=== PATIENT | male | born 1945 | race Caucasian/White ===

== ENCOUNTER 2016-07-30 21:15 | Emergency (ER) | payer MEDICARE, OTHER ==
[2014-08-21 10:51] VITALS: BMI 25.3
[~2016-07-30 21:15] MED LIST: ACETAMINOPHEN500 M1 PO; BAYER CHEWABLE81 MG PO; BYSTOLIC10 MG PO; CYMBALTA30 MG PO; GEMFIBROZIL600 MG PO; K-TAB10 MEQ PO; LASIX20 MG PO; MULTIPLE VITAMI1 TA1 PO; NEXIUM40 MG PO; PLAVIX75 MG PO; TRANDATE200 MG PO; VESICARE5 MG PO
== END 2016-07-30 22:26 | disposition home or self-care (01) ==
LOC: D.ER 21:15
DX: H18.9 Unspecified disorder of cornea (principal); Z95.1 Presence of aortocoronary bypass graft; C90.00 Multiple myeloma not having achieved remission

== ENCOUNTER 2017-04-13 15:23 | Observation (INO) | payer MEDICARE ==
[~2017-04-13] VITALS: Ht 172.7 cm; Wt 79.7 kg
--- NOTE | ~2017-04-13 | HEMODYNAMI ---
PATIENT:SANTO RODRIGUEZ MEDICAL RECORD: [id number] : 41 [address] [id number] ADMISSION DATE: 04/13/17 Generatedon:04/15/201712:51 Patient name: SANTO RODRIGUEZ Patient #: [id number] SSN: : 1945 Date of study: 04/15/2017 Page: Of Hemodynamic Procedure Report Patient Data Patient Demographics Procedure consent was obtained First Name: SANTO Gender: Male Last Name: JENNIFER : 1945 Middle Initial: DOUG Age: 71 year(s) Patient #: [id number] Race: Additional ID: [id number] Contact details Address: [address] [place] [address] State: [place] City: [place] Zip code: [address] Past Medical History Allergies Allergen Reaction Date Comments Reported Other allergy 04/15/2017 [facility] Admission Admission Data Admission Date: 04/13/2017 Admission Time: 19:01 Room #: [facility] Lab Results Lab Result Date: 04/15/2017 Lab Result Time: 0:00 Biochemistry Name Units Result Min Max BUN mg/dl 32 --(----)-* 7 18 Creatinine mg/dl 1.9 --(----)-* 0.6 1.3 CBC Name Units Result Min Max Hemoglobin g/dl 9.7 *-(----)-- 13.5 17.5 Procedure Procedure Types Cath Procedure Diagnostic Procedure LHC LHC w/Coronaries w/Grafts PCI Procedure Coronary Stent Coronary Stent Initial Miscellaneous Procedures Moderate Sedation up to 30 minutes Procedure Description Procedure Date Procedure Date: 04/15/2017 Procedure Start Time: 12:35 Procedure End Time: 12:49 Procedure Staff Name Function Carroll Miranda MD Performing Physician Nick Cordero RN Nurse Celeste Stewart RN Nurse Mora Contreras RT Scrub Destiney Nelson RT Monitor Procedure Data Cath Procedure Fluoroscopy Diagnostic fluoroscopy Total fluoroscopy Time: 3.1 time: 3.1 min min Diagnostic fluoroscopy Total fluoroscopy dose: 858 dose: 858 mGy mGy Contrast Material Contrast Material Type Amount (ml) Isovue 300 103 Entry Location Entry Primary Successful Side Size Upsize Upsize Entry Closure Succes sful Closure Location (Fr) 1 (Fr) 2 (Fr) Remarks Device Remarks Femoral Right 5 Fr 6 Fr Exoseal artery Short Estimated blood loss: 5 ml Diagnostic catheters Device Type Used For End Catheter Placement MULTIPACK Pigtail 5 Fr LV Angiography catheter MULTIPACK JL 4.0 5Fr Left Coronary catheter Angiography MULTIPACK 3DRC 5Fr Multi-vessel catheter Angiography DIAGNOSTIC AR 2 MOD 5 Fr Multi-vessel catheter ([id number]) Angiography Procedure Complications No complications Procedure Medications Medication Administration Route Dosage 0.9% NaCl I.V. 100 ml/hr Oxygen NC 2 l/min Lidocaine 2% added to field 20 Heparin Flush Bag added to field 2 bags (1000units/500ml NS) Versed I.V. 1 mg Fentanyl I.V. 50 mcg Fentanyl I.V. 50 mcg Versed I.V. 1 mg Heparin Bolus I.V. 4000 units Hemodynamics Rest HGB: 9.7 (g/dl) Heart Rate: 60 (bpm) Pressure Samples Time Site Value (mmHg) Purpose Heart Use Rate(bpm) 12:36 LV 44/42,43 Snapshot 60 Snapshots Pre Cath Intra NCS Post Cath Vital Signs Time Heart Resp SPO2 etCO2 NIBP (mmHg) Rhythm Pain Sedation Rate (ipm) (%) (mmHg) Status Level (bpm) 12:17:08 69 19 94 30.6 133/73(115) NSR 0 (11) 10(A) , No pain 12:21:26 62 17 94 32.8 126/65(106) NSR 0 (11) 10(A) , No pain 12:25:40 61 14 96 23.8 119/67(107) NSR 0 (11) 10(A) , No pain 12:29:52 60 16 94 0 126/62(105) NSR 0 (11) 10(A) , No pain 12:34:04 60 14 95 14.9 120/62(98) NSR 0 (11) 9(A) , No pain 12:38:14 61 14 93 17.8 115/66(95) NSR 0 (11) 9(A) , No pain 12:42:23 60 14 94 8.1 128/69(100) NSR 0 (11) 9(A) , No pain 12:46:40 60 14 96 0 126/61(107) NSR 0 (11) 10(A) , No pain Medications Time Medication Route Dose Verified Delivered Reason Not es Effectiveness by by 12:06:59 0.9% NaCl I.V. 100ml/hr Carroll Alonso used for Ruth Stewart RN procedure 12:07:08 Oxygen NC 2 l/min Carroll Alonso Per physician Ruth Stewart RN 12:07:16 Lidocaine 2% added 20ml Carroll Hodges for local to vial Ruth Miranda MD anesthetic field 12:07:23 Heparin Flush added 2 bags Carroll Hodges used for Bag to Ruth Miranda MD procedure (1000units/500ml field NS) 12:30:37 Versed I.V. 1 mg Carroll Alonso for sedation Ruth Stewart RN 12:30:44 Fentanyl I.V. 50 mcg Carroll Alonso for sedation Ruth Stewart RN 12:32:57 Fentanyl I.V. 50 mcg Carroll Alonso for sedation Ruth Stewart RN 12:33:03 Versed I.V. 1 mg Carroll Alonso for sedation Ruth Stewart RN 12:39:03 Heparin Bolus I.V. 4000 Carroll Alonso for units Ruth Stewart RN anticoagulation Procedure Log Time Note 12:05:33 Nick Cordero RN sent for patient. Start room use. 12:05:34 Time tracking: Regular hours 12:05:39 Plan of Care:Hemodynamics will remain stable., Cardiac rhythm will remain stable., Comfort level will be maintained., Respiratory function will remain adequate., Patient/ family verbilizes understanding of procedure., Procedure tolerated without complication., Recovers from procedure without complications.. 12:06:59 0.9% NaCl 100ml/hr I.V. was administered by Celeste Stewart RN; used for procedure; 12:07:08 Oxygen 2 l/min NC was administered by Celeste Stewart RN; Per physician; 12:07:16 Lidocaine 2% 20ml vial added to field was administered by Carroll Miranda MD; for local anesthetic; 12:07:23 Heparin Flush Bag (1000units/500ml NS) 2 bags added to field was administered by Carroll Miranda MD; used for procedure; 12::29 Lab Result : Hemoglobin 9.7 g/dl 12:: Lab Result : Creatinine 1.9 mg/dl 12:: Lab Result : BUN 32 mg/dl 12:15:53 Vital chart was started 12:20:03 Patient received from Med/Surg to CCL 2 Alert and oriented. Tansferred to table in Supine position. 12:20:04 Warm blankets applied, and ulices hugger turned on for patient comfort. 12:20:04 Correct patient and procedure confirmed by team. 12:20:06 Signed procedure consent form obtained from patient. 12:20:08 ECG and BP/O2 sat monitors applied to patient. 12:20:10 Baseline sample Acquired. 12:20:20 Full Disclosure recording started 12:20:26 Rhythm: paced 12:20:33 H&P Date Dictated: 04/15/2017 New H&P dictated by physician.. 12:20:34 Pre-procedure instructions explained to patient. 12:20:35 Pre-op teaching completed and patient verbalized understanding. 12:20:38 Family in waiting room. 12:20:40 Patient NPO since Midnight. 12:20:54 Patient allergic to Other allergyErythromycin 12:21:12 Is the patient allergic to Iodine/contrast media? No. 12:21:14 Was the patient premedicated? No 12:21:32 Is patient on blood thinner?Yes 12:21:34 ACC The patient was administered the following blood thiners within the last 24 hours: ACCPlavix 12:21:41 Patient diabetic? No. 12:21:44 Previous problem with sedation/anesthesia? No ? 12:21:45 Snore? Yes 12:21:46 Sleep apnea? Yes 12:21:47 Deviated septum? No 12:21:48 Opens mouth fully? Yes 12:21:48 Sticks out tongue? Yes 12:21:52 Airway obstruction? Yes copd 12:21:55 Dentures? No ? 12:22:00 Pre procedure: right dorsailis pedis pulse 1+ Palpable, but thready & weak; easily obliterated 12:22:02 Pre procedure: left dorsailis pedis pulse 1+ Palpable, but thready & weak; easily obliterated 12:22:05 Patient pain scale 0/10 ?. 12:22:11 IV patent on arrival in left hand with 0.9% NaCl at [facility]. 12:23:14 Lab results completed and on chart. 12:23:20 Right groin area was prepped with chlora-prep and draped in sterile fashion 12:23:21 Alarms reviewed by R. N. 12:23:25 Sharps counted by scrub and verified by R.N. 12:29:59 Physician arrived 12:30:00 --------ALL STOP TIME OUT------ 12:30:00 Final Timeout: patient, procedure, and site verified with staff and physician. All members of the team are in agreement. 12:30:02 Right groin site verified by team. 12:30:04 Physical assessment completed. ASA score P 2 - A patient with mild systemic disease as per Carroll Miranda MD. 12:30:08 Sedation plan: IV Moderate Sedation Medication:Versed, Fentanyl 12:30:36 Use device set Femoral Dx 12:30:37 Versed 1 mg I.V. was administered by Celeste Stewart RN; for sedation; 12:30:37 ACIST Syringe (85770) opened to sterile field. 12:30:38 Bag Decanter (2002S) opened to sterile field. 12:30:38 Medline Cath Pack ([id number]) opened to sterile field. 12:30:38 SHEATH 5FR [place] (FRU560) opened to sterile field. 12:30:39 DIAGNOSTIC WIRE .035 260cm J wire (735014) opened to sterile field. 12:30:41 ACIST Hand Control (17632) opened to sterile field. 12:30:42 ACIST Manifold (27580) opened to sterile field. 12:30:43 DIAGNOSTIC Multipack 5Fr catheter set (SR7708) opened to sterile field. 12:30:43 Tegaderm 4 x 4 (1626W) opened to sterile field. 12:30:44 Fentanyl 50 mcg I.V. was administered by Celeste Stewart RN; for sedation; 12:32:57 Fentanyl 50 mcg I.V. was administered by Celeste Stewart RN; for sedation; 12:33:03 Versed 1 mg I.V. was administered by Celeste Stewart RN; for sedation; 12:35:48 Procedure started. 12:35:57 Local anesthetic to right femoral artery with Lidocaine 2% by Carroll Miranda MD.INITIAL ACCESS ONLY 12:36:06 A 5 Fr sheath was inserted into the Right Femoral artery 12:36:18 A MULTIPACK Pigtail 5 Fr catheter was advanced over the wire and used for LV Angiography. 12:37:04 LV hemodynamics recorded. 12:37:08 LV gram done using ROSA 12:37:12 Injector settings: Ml/sec: 5, Volume: 15, 12:37:21 EF : 40 % 12:37:28 Catheter removed. 12:37:34 A MULTIPACK JL 4.0 5Fr catheter was advanced over the wire and used for Left Coronary Angiography. 12:38:15 LCA angiography performed. 12:38:41 Catheter removed. 12:39:03 Heparin Bolus 4000 units I.V. was administered by Celeste Stewart RN; for anticoagulation; 12:39:22 A MULTIPACK 3DRC 5Fr catheter was advanced over the wire and used for Multi-vessel Angiography. 12:40:00 LCA angiography performed. 12:40:02 WOODARD angiography performed. 12:40:07 Catheter removed. 12:40:11 A DIAGNOSTIC AR 2 MOD 5 Fr catheter ([id number]) was advanced over the wire and used for Multi-vessel Angiography. 12:40:48 SVG to RCA angiography performed. 12:40:52 Catheter removed. 12:40:52 Proceeding to intervention. 12:41:09 INFLATOR Merit BasixCompak (UD2625) opened to sterile field. 12:41:10 SHEATH 6FR [place] (KRD378) opened to sterile field. 12:41:28 WHISPER 190cm wire ([id number]) opened to sterile field. 12:41:49 GUIDE 6FR XBLAD 3.5 catheter ([id number]) opened to sterile field. 12:42:01 Sheath upsized to a 6 Fr Short. 12:42:08 6 Fr xblad 3.5 guide catheter was inserted over the wire 12:42:12 whisper wire advanced. 12:42:14 Wire advanced across lesion. 12:44:45 Inflation Number: 1 A GONZALO RX 3.0 x 12 stent ([id number]) was prepped and advanced across the Mid CX. The stent was deployed at 17 ILAN for 0:10 (min:sec). 12:44:56 Inflation number: 2 The stent balloon was then re-inflated across the Mid CX to 11 ILAN for 0:10 (min:sec). 12:45:33 Inflation number: 3 The stent balloon was then re-inflated across the Mid CX to 9 ILAN for 0:10 (min:sec). 12:46:08 Stent catheter was removed intact over wire. 12:46:09 Wire removed. 12:46:09 Guide catheter removed. 12:46:15 EXOSEAL 6Fr (EX600) opened to sterile field. 12:46:31 Sheath removed intact; hemostasis achieved with Exoseal to the Right Femoral artery. 12:46:33 Procedure ended.(Physican Out) 12:47:40 Fluoroscopy time 03.10 minutes. 12:47:43 Fluoroscopy dose: 858 mGy 12:47:43 Flurop Dose total: 858 12:47:47 Contrast amount:Isovue 300 103ml. 12:47:48 Sharps counted by scrub and verified by R.N. 12:47:49 Insertion/operative site no bleeding no hematoma. 12:47:52 Post-op/insertion site Right Femoral artery dressed using a 4 x 4 and Tegaderm. 12:47:54 Post right femoral artery:stable 12:47:55 Post Procedure Pulses reassessed and unchanged 12:47:58 Post procedure rhythm: unchanged. 12:48:01 Estimated blood loss: 5 ml 12:48:02 Post procedure instruction explained to patient.Patient verbalizes understanding. 12:48:03 Patient needs reinforcement of post procedure teaching. 12:48:27 Procedure type changed to Cath procedure, Diagnostic procedure, LHC, LHC w/Coronaries w/Grafts, PCI procedure, Coronary Stent, Coronary Stent Initial, Miscellaneous Procedures, Moderate Sedation up to 30 minutes 12:48:28 Procedure and supply charges have been captured, reviewed, submitted and are correct. 12:48:32 Procedure Complication : No complications 12:48:34 Vital chart was stopped 12:48:35 See physician's report for complete and final results. 12:49:04 Report given to [facility]. 12:49:07 Patient transfered to [facility] with Stretcher. 12:49:09 Procedure ended. 12:49:09 Full Disclosure recording stopped 12:49:18 ACC-PCI Only Patient was given prescriptions, or instructed by Nick Cordero RN to start/continue the following medications upon discharge: Plavix 12:49:20 End room use (Document Last) Intervention Summary Intervention Notes Time ActionType Lesion and Equipment Used Action# Pressure Duration Attributes 12:44:45 Place stent Mid CX GONZALO RX 3.0 x 1 17 00:10 12 stent ([id number]) 12:44:56 Reinflate Mid CX GONZALO RX 3.0 x 2 11 00:10 stent 12 stent balloon ([id number]) 12:45:33 Reinflate Mid CX GONZALO RX 3.0 x 3 9 00:10 stent 12 stent balloon ([id number]) Device Usage Item Name Manufacture Quantity Catalog Hospital Part [facility] Lot# / Number Charge Number Stock Stock Serial# Code ACIST Syringe Acist 1 93578 653189 713837 090229 20 (27119) Medical Systems Inc Bag Decanter Microtek 1 2001S 882451 16888 525589 5 () Medical Inc. Medline Cath Cardinal 1 [id number] 567159 69111 573022 5 Pack Health ([id number]) SHEATH 5FR Terumo 1 DHS881 168750 191863 675619 40 [place] (ZTF650) DIAGNOSTIC St Brice 1 712214 455164 655083 376693 30 WIRE .035 260cm J wire (790733) ACIST Hand Acist 1 91552 600311 069302 328042 5 Control Medical (65721) Systems Inc ACIST Manifold Acist 1 91075 858332 991546 379967 5 (64655) Medical Systems Inc DIAGNOSTIC Cardinal 1 NQ3555 048689 96051 919262 30 Multipack 5Fr Health catheter set (KG7467) Tegaderm 4 x 4 3M 1 1626W 265773 707206 646479 5 (1626W) MULTIPACK Cardinal 1 222755 5 Pigtail 5 Fr Health catheter MULTIPACK JL Cardinal 1 414819 5 4.0 5Fr Health catheter MULTIPACK 3DRC Cardinal 1 848785 5 5Fr catheter Health DIAGNOSTIC AR Cardinal 1 [id number] 873959 135010 272524 20 2 MOD 5 Fr Health catheter ([id number]) INFLATOR Merit Merit 1 RF8125 184361 738104 693136 [facility] (VV1234[facility] SHEATH 6FR Terumo 1 KMB023 121635 979245 959838 40 [place] (LTJ254) WHISPER 190cm Jacobo 1 [id number] 504587 435610 436110 5 wire Vascular ([id number]) GUIDE 6FR Cardinal 1 [id number] 162647 366651 653991 10 XBLAD 3.5 Health catheter ([id number]) GONZALO RX 3.0 x Medtronic 1 [id number] 717334 7351247 942025 5 [id number] 12 stent ([id number]) EXOSEAL 6Fr Cardinal 1 EX600 994000 948672 860982 10 (EX600) Health Signature Audit [place] Stage Time Signature Unsigned Intra-Procedure 04/15/2017 Destiney Nelson 12:51:35 PM RT(R) Signatures Monitor : Destiney Nelson RT Signature : Date : Time : [place] [id number] [place] [address]
[2017-04-13 16:15] LABS: BASOPHILS 0.1 % (0-2); EOSINOPHILS 1.2 % (0-7); HEMATOCRIT 27.6 % (42.0-54.0); HEMOGLOBIN 9.1 g/dL (13.5-17.5); IMMATURE GRANULOCYTES 0.1 % (0-5); LYMPHOCYTES 16.7 % (15-50); MCH 28.4 pg (26.0-34.0); MCV 86.3 fL (80.0-100.0); MEAN PLATELET VOLUME 9.8 fL (7.4-10.4); MONOCYTES 5.9 % (2-11); RDW 15.9 % (11.5-14.5); WBC 9.7 10x3/uL (4.8-10.8)
[2017-04-13 16:19] LABS: PLATELET COUNT 191 10x3/uL (130-400)
[2017-04-13 16:31] LABS: ALBUMIN 3.3 g/dL (3.4-5.0); ANION GAP 15.4 mmol/L (8-16); BILIRUBIN - TOTAL 0.49 mg/dL (0.2-1.3); CALCIUM 8.8 mg/dL (8.5-10.1); CARBON DIOXIDE 21.1 mmol/L (21.0-32.0); CREATININE - SERUM 1.9 mg/dL (0.6-1.3); POTASSIUM - SERUM 3.5 mmol/L (3.5-5.1); PROTEIN - SERUM 7.6 g/dL (6.4-8.2)
[2017-04-13 16:46] LABS: TROPONIN-I 0.021 ng/mL (0.000-0.060)
[2017-04-13 17:17] LABS: APTT 33.8 SECONDS (22.8-39.4)
[2017-04-13 17:18] LABS: INR 1.25 (0.85-1.17); PROTIME 15.2 SECONDS (11.6-15.0)
[2017-04-13 17:19] LABS: D-DIMER-QUANTITATIVE 1.02 ug/mLFEU (0.20-0.54)
[2017-04-13 19:54] LABS: CKMB 0.8 U/L (0.0-3.6); CREATINE KINASE 91 UL (21-232); TROPONIN-I 0.023 ng/mL (0.000-0.060)
[2017-04-14] VITALS (7 sets, daily range): BP systolic 134–150; BP diastolic 57–68; Ht 172.7 cm; Wt 79.7 kg
[2017-04-14] MEDS ORDERED: NORVASC10 MG PO (00:30)
[2017-04-14] MEDS ORDERED: ZYLOPRIM300 MG PO (00:31)
[2017-04-14 02:06] LABS: CREATINE KINASE 88 UL (21-232)
[2017-04-14 08:44] LABS: BASOPHILS 0.1 % (0-2); EOSINOPHILS 1.6 % (0-7); HEMATOCRIT 28.6 % (42.0-54.0); HEMOGLOBIN 9.3 g/dL (13.5-17.5); IMMATURE GRANULOCYTES 0.3 % (0-5); LYMPHOCYTES 17.9 % (15-50); MCH 28.7 pg (26.0-34.0); MCHC 32.5 g/dL (31.0-37.0); MEAN PLATELET VOLUME 9.7 fL (7.4-10.4); NEUTROPHILS 72.1 % (40-80); PLATELET COUNT 182 10x3/uL (130-400); RBC 3.24 10x6/uL (4.20-6.10); RDW 15.9 % (11.5-14.5); WBC 7.4 10x3/uL (4.8-10.8)
[2017-04-14 08:45] LABS: MCV 88.3 fL (80.0-100.0)
[2017-04-14 09:10] LABS: CALC OSMOLALITY 291 mosm/kg (275-300); CALCIUM 8.6 mg/dL (8.5-10.1); CARBON DIOXIDE 25.4 mmol/L (21.0-32.0); CHLORIDE - SERUM 107 mmol/L (98-107); CKMB 1.2 U/L (0.0-3.6); CREATINE KINASE 82 UL (21-232); GLUCOSE 95 mg/dL (74-106); POTASSIUM - SERUM 3.3 mmol/L (3.5-5.1); SODIUM 143 mmol/L (136-145); UREA NITROGEN 31 mg/dL (7-18); eGFR NON AFRICAN AMERICAN 35 mL/min (90-120)
[2017-04-14 09:13] LABS: TROPONIN-I 0.135 ng/mL (0.000-0.060)
--- NOTE | 2017-04-14 09:49 | NUR ---
AWAKE AND ALERT. ORIENTED X3. NO C/O AT THIS TIME. LUNGS ARE CLEAR BILATERALLY BUT DIMINISHED THROUGHOUT. REPORTS OCCASSIONAL DRY COUGH. SKIN IS INTACT WIHTOUT REDNESS. IV TO LEFT FOREARM IS PATENT WITHOUT REDNESS AT INSERTION SITE. DENIES NEEEDS. ATE MOST OF BREAKFAST.
--- NOTE | 2017-04-14 10:00 | NUR ---
DR PERAZA HERE. AWARE OF ELEVATED CE. NEW ORDERS RECEIVED.
--- NOTE | 2017-04-14 12:15 | CN ---
PATIENT NAME:SANTO RODRIGUEZ MEDICAL RECORD: [id number] : 41 LOCATION:D.MS Lance2239 ADMIT DATE: 04/13/17 ACCOUNT: [id number] CONSULTING PHYSICIAN: TAVON PERAZA MD REFERRING PHYSICIAN: JERZY FIELD MD DATE OF CONSULTATION: 04/14/2017 CARDIOLOGY CONSULT DIAGNOSES: 1. Shortness of breath. 2. Non-Q-wave myocardial infarction and elevated troponin. 3. Coronary artery disease. 4. Previous PTCA and stent. 5. Possible pneumonia. HISTORY: This is a gentleman who presents with shortness of breath and chest pain. His troponin is positive. He has renal insufficiency with creatinine of 2.0. He is anemic with hemoglobin of 9.1. He has a history of coronary artery disease, previous PTCA and stent as well. He has a history of hypertension and hyperlipidemia. These are under good control on his current medications. REVIEW OF SYSTEMS: The patient reports easy bruising but reports no swollen glands. The patient reports no fever, no night sweats, no significant weight gain, no significant weight loss. No significant exercise tolerance. The patient reports no dry eyes, no irritation, no vision change. Patient reports no difficulty hearing and no ear pain. Patient reports no frequent nose bleeds or nose and sinus problems. Patient reports on arm pain on exertion. No shortness of breath while lying down. No history of heart murmur. Patient reports no cough, no wheezing or coughing up blood. Patient reports no abdominal pain, no vomiting. Normal appetite. No diarrhea and not vomiting blood. No nausea and no constipation. Patient reports no incontinence. No difficulty urinating. No hematuria. No increased frequency. Patient reports no muscle aches. No weakness, no arthralgias, no back pain. No swelling of the extremities. Patient reports no abnormal mole, no jaundice, no rashes. Reports no loss of consciousness. No weakness and no numbness. No seizures, dizziness, or headaches. The patient reports no depression, no sleep disturbance, feeling safe in a relationship and no alcohol abuse. Patient reports on fatigue. Reports no runny nose or sinus pressure. No itching, no hives, and no frequent sneezing. PHYSICAL EXAMINATION: GENERAL APPEARANCE: Well-nourished, well-developed, appears stated age. Level of distress, comfortable. PSYCHIATRIC: Mental status, alert, normal affect. Orientation, oriented to time, place and person. EYES: Lids and conjunctiva, noninjected. No discharge, no pallor. ENT: Lips, teeth, gums, normal dentition. Oropharynx, no cyanosis, no pallor. NECK: Carotid arteries, bilateral normal upstroke, no bruits, no thrills. JUGULAR VEINS: No jugular venous pressure or distention. CERVICAL LYMPH NODES: Nontender, nonenlarged. THYROID: Not enlarged. Nontender. No nodules. LUNGS: Respiratory effort, unlabored. CHEST: Normal curvature. No thoracic deformity. No chest wall tenderness. Percussion, resonant. Auscultation, clear. No wheezes, no rales, no rhonchi. CONSULT REPORT [id number] SANTO RODRIGUEZ CARDIOVASCULAR: Precordial exam, nondisplaced. No heaves or pericardial thrills. Rate and rhythm, regular. Heart sounds, normal S1, normal S2. No S3, no gallop, no rub. Systolic murmur, not heard. Diastolic murmur, not heard. EXTREMITIES: No cyanosis, no edema. Peripheral pulses, full and equal in all extremities, except as noted. No bruits appreciated. ABDOMEN: Soft, nondistended. Normal aorta. No bruit. Nontender. No masses. Liver, nontender, no hepatomegaly. Spleen, nontender, no splenomegaly. MUSCULOSKELETAL: No joint tenderness. No joint swelling. No erythema. NEUROLOGICAL: Normal gait, normal strength, normal tone. SKIN: Warm and dry. OVERALL IMPRESSION: Non-Q-wave myocardial infarction with chest pain and shortness of breath, most likely he has recurrent hemodynamically significant coronary artery disease. We will proceed with coronary angiography in the a.m. Further care depends upon findings of the angiography. TRANSINT:[id number] Voice Confirmation ID: [id number] DOCUMENT ID: [id number] TAVON PERAZA MD at 1215 CC: [id number] DICTATION DATE: 04/14/17 1026 EXECUTIVE CHEF: 04/14/17 1059 ADM IN [place] [address] [place] [address]
--- NOTE | 2017-04-14 12:30 | NUR ---
LUNCH SERVED IN ROOM. SISTER AT BEDSIDE. DENIES NEEDS.
--- NOTE | 2017-04-14 18:26 | NUR ---
ATE ALMOST ALL OF SUPPER. DENIES NEEDS. NO CHANGES NOTED.
--- NOTE | 2017-04-15 03:59 | NUR ---
RESITED THE PATIENT'S IV IN HIS LEFT FA ON THE FIRST ATTEMPT WITH A 22G
[2017-04-15 04:24] VITALS: BP 132/64
[2017-04-15 06:16] LABS: BASOPHILS 0.1 % (0-2); EOSINOPHILS 3.8 % (0-7); HEMATOCRIT 29.3 % (42.0-54.0); HEMOGLOBIN 9.7 g/dL (13.5-17.5); IMMATURE GRANULOCYTES 0.1 % (0-5); LYMPHOCYTES 12.9 % (15-50); MCH 28.7 pg (26.0-34.0); MCHC 33.1 g/dL (31.0-37.0); MCV 86.7 fL (80.0-100.0); MEAN PLATELET VOLUME 9.8 fL (7.4-10.4); MONOCYTES 6.6 % (2-11); NEUTROPHILS 76.5 % (40-80); PLATELET COUNT 202 10x3/uL (130-400); RBC 3.38 10x6/uL (4.20-6.10); RDW 15.8 % (11.5-14.5); WBC 8.5 10x3/uL (4.8-10.8)
[2017-04-15 06:38] LABS: ALBUMIN 3.1 g/dL (3.4-5.0); BILIRUBIN - TOTAL 0.42 mg/dL (0.2-1.3); CARBON DIOXIDE 26.1 mmol/L (21.0-32.0); CREATININE - SERUM 1.9 mg/dL (0.6-1.3); PROTEIN - SERUM 6.9 g/dL (6.4-8.2)
[2017-04-15 06:39] LABS: ANION GAP 15.9 mmol/L (8-16)
--- NOTE | 2017-04-15 08:00 | NUR ---
ASSESSMENT PER FLOW SHEET.PT WITHOUT DISTRESS.NPO FOR HEART CATH TODAY.
[2017-04-15 08:20] VITALS: BP 141/69
--- NOTE | 2017-04-15 12:06 | NUR ---
LEFT UNIT TO GO TO STEAM BONE PRESS TENDER
--- NOTE | 2017-04-15 12:07 | NUR ---
REPORT CALLED TO MED 2,SPOKE WITH ALEXANDRA
--- NOTE | 2017-04-15 13:20 | NUR ---
RECEIVED FROM SHOWCASE MAKER BY BED. VS WNL. RIGHT GROIN STABLE WITHOUT BLEEDING OR HEMATOMA NOTED. WILL MONITOR.
--- NOTE | 2017-04-15 16:09 | NUR ---
ANNE REMOVED FROM RIGHT ARM. SM AMNT PURULENT DRAINGE NOTED. COVERED WITH NON ADHESIVE DRSG. WILL MONITOR.
[2017-04-15 16:37] VITALS: BP 134/64
--- NOTE | 2017-04-15 17:00 | NUR ---
BED REST UP. GROIN STABLE.
--- NOTE | 2017-04-15 20:48 | NUR ---
PT RESTING COMFORTABLY, EASILY ROUSABLE TO VERBAL STIMULI, NO NEED AT THIS TIME. PT CURRENTLY RECEIVING AND UPDRAFT TX FROM RT. RT GROIN CLEAN, DRY, DRESSING INTACT, NO HEMATOMA, WARM TO TOUCH, PEDAL PULSES WNL. CONTINUE TO MONITOR CLOSELY.
[2017-04-15 21:03] VITALS: BP 141/63
[2017-04-16 04:46] LABS: BASOPHILS 0.2 % (0-2); EOSINOPHILS 3.8 % (0-7); HEMATOCRIT 30.2 % (42.0-54.0); HEMOGLOBIN 9.9 g/dL (13.5-17.5); IMMATURE GRANULOCYTES 0.3 % (0-5); LYMPHOCYTES 18.7 % (15-50); MCH 28.3 pg (26.0-34.0); MCHC 32.8 g/dL (31.0-37.0); MCV 86.3 fL (80.0-100.0); MEAN PLATELET VOLUME 9.8 fL (7.4-10.4); MONOCYTES 7.8 % (2-11); NEUTROPHILS 69.2 % (40-80); PLATELET COUNT 239 10x3/uL (130-400); RDW 15.8 % (11.5-14.5); WBC 10.6 10x3/uL (4.8-10.8)
--- NOTE | 2017-04-16 05:05 | NUR ---
PT AWAKE, ALERT, ORIENTED, COFFEE GIVEN PER REQUEST. PT STATES HE HAS AMBULATED TO THE BATHROOM WITHOUT DIFFICULTY, RT GROIN REMAINS WNL AFTER CARDIAC CATH YESTERDAY. CONTINUE TO MONITOR CLOSELY.
[2017-04-16 05:10] LABS: ALBUMIN 3.1 g/dL (3.4-5.0); ANION GAP 13.8 mmol/L (8-16); BILIRUBIN - TOTAL 0.34 mg/dL (0.2-1.3); CALCIUM 8.9 mg/dL (8.5-10.1); CARBON DIOXIDE 27.3 mmol/L (21.0-32.0); CREATININE - SERUM 1.9 mg/dL (0.6-1.3); POTASSIUM - SERUM 3.1 mmol/L (3.5-5.1); PROTEIN - SERUM 7.5 g/dL (6.4-8.2)
[2017-04-16 05:40] VITALS: BP 137/59
[2017-04-16 08:34] VITALS: BP 143/72
--- NOTE | 2017-04-16 12:18 | NUR ---
STAPLE REMOVED FROM RT FA. PT TOLERATED PROCEDURE WELL. CLEANED SITE WITH BETADINE AND APPLIED DRESSING TO SITE. PT STATED THAT HE WAS SITTING UP TO CHAIR, AND HE DROPPED HIS PHONE AND WHEN HE WENT TO PICK IT UP HE GOT DIZZY, ALSO STATED THAT HE GOT A LITTLE DISORIENTED TO WHERE HE WAS AT. PT SEEMS FINE AT THIS TIME. RESP EVEN AND UNLABORED, NAD NOTED, CALL LIGHT IN REACH, WILL CONTINUE TO MONITOR.
[2017-04-16 12:25] VITALS: BP 133/57
--- NOTE | 2017-04-16 14:03 | NUR ---
Nutrition Follow Up: Pt stated that he does not have an appetite. He said that he does not feel hungry and he does feel some nausea. Pt is eating 50% meal avg on an AHA diet. No BM since admit. Wt loss noted. Labs reviewed. Meds noted including Lasix. Rec consider changing diet to regular to encourage po intake. Will continue to honor food preferences within diet ordered. RD following.
[2017-04-16] MEDS ORDERED: PLAVIX75 MG PO ×3 (15:07→15:28)
[2017-04-16] MEDS ORDERED: TESSALON PERLE100 MG PO ×3 (15:08→15:28)
[2017-04-16] MEDS ORDERED: ASPIRIN81 MG PO ×3 (15:08→15:28)
[2017-04-16] MEDS ORDERED: VIBRAMYCIN 100100 MG PO ×3 (15:09→15:28)
[2017-04-16] MEDS ORDERED: MUCINEX DM ER1 EAC1 PO ×3 (15:09→15:28)
--- NOTE | 2017-04-16 15:47 | NUR ---
CALLED ER REGISTRATION AND INFOMRED THEM THAT PT HAS MONEY IN THE SAFE AND WANTS IT BROUGHT UP. ER REGSTRATION WILL BE UP SHORLY.
[2017-04-16 16:35] VITALS: BP 132/63
--- NOTE | 2017-04-16 17:35 | NUR ---
PROVIDED VERBAL AND WRITTEN DICHARGE TEACHING TO PT AND . BOTH VERBALIZED UNDERSTANDING, D/C LT FA IV, TIP INTACT. PT LEFT UNIT VIA WHEELCHAIR, ACCOMPANIED BY , NAD NOTED.
--- NOTE | 2017-04-29 15:46 | OP ---
PATIENT NAME: SANTO RODRIGUEZ MEDICAL RECORD: [id number] :41 LOCATION:D.M2 D.2132 ADMISSION DATE:04/13/17 SURGEON: TAVON PERAZA MD DATE OF OPERATION: 04/15/2017 PROCEDURES: 1. PTCA and stent of left circumflex. 2. Left heart catheterization. 3. Selective coronary angiography. 4. Left ventriculogram. 5. Vein graft angiography. 6. WOODARD angiography. INDICATION: Unstable angina. DESCRIPTION OF PROCEDURE: After informed consent was obtained and after detailed explanation of risks, benefits as well as alternative therapies, the patient elected to proceed with angiogram and angioplasty. The right femoral area was prepped and draped in normal sterile fashion. The right femoral artery was cannulated via modified Seldinger technique with placement of 6-Romanian sheath. All catheters exchanged through this sheath. FINDINGS: Left ventriculogram was performed in the standard 30-degree ROSA view, reveals mild global hypokinesis, ejection fraction 40%. SELECTIVE CORONARY ANGIOGRAPHY: 1. Left main showed no significant angiographic disease. 2. Left anterior descending is totally occluded. 3. WOODARD to the LAD is widely patent. Distal LAD is widely patent. 4. Left circumflex has a previously placed stent. There is 80% in-stent restenosis. 5. Right coronary is totally occluded. 6. Vein graft to the right coronary is widely patent. Distal right coronary is widely patent. PTCA AND STENT OF THE LEFT CIRCUMFLEX: The stent used was a 3.0 x 12 mm [place]. Result was 0% residual stenosis. OVERALL IMPRESSION: Successful PTCA and stent of the left circumflex going from 80% initial stenosis to 0% residual. TRANSINT:[id number] Voice Confirmation ID: [id number] DOCUMENT ID: [id number] TAVON PERAZA MD at 1546 CC: [id number] DICTATION DATE: 04/15/17 1252 PARENT COACH: 04/15/17 1540 DIS IN 04/16/17 [place] [id number]
--- NOTE | 2017-04-30 14:06 | CN ---
PATIENT NAME:SANTO LIRIANO MEDICAL RECORD: [id number] : 41 LOCATION:D. D.2132 ADMIT DATE: 04/13/17 ACCOUNT: [id number] CONSULTING PHYSICIAN: JOELLE ORDONEZ MD REFERRING PHYSICIAN: JERZY FIELD MD DATE OF CONSULTATION: 04/14/2017 Pulmonary Consultation CONSULT REQUESTING PHYSICIAN: Jerzy Field MD REASON FOR CONSULTATION: Fever, shortness of breath, cough. HISTORY OF PRESENT ILLNESS: Mr. Liriano is a 71-year-old gentleman who has a history of obstructive sleep apnea, coronary artery disease status post CABG as well as COPD. According to the patient, for the last few days, he has worsening shortness of breath with exertion. He has some mild fever. He has cough, which is nonproductive. He also has pain across the chest. There is no associated nausea, vomiting, no diarrhea. PAST MEDICAL HISTORY: 1. Coronary artery disease. 2. Obstructive sleep apnea. 3. Chronic obstructive pulmonary disease. 4. Pneumonia. 5. Multiple myeloma. 6. CA of the prostate. 7. CA of the kidney. 8. History of diverticulitis. 9. History of rectal bleed. 10. He is also having anxiety and depression. PAST SURGICAL HISTORY: 1. CABG. 2. Back surgery. 3. Right knee meniscus injury. 4. Right nephrectomy. ALLERGIES: HE IS ALLERGIC TO ERYTHROMYCIN. PRESENT MEDICATIONS: On [employer], was reviewed. PERSONAL AND SOCIAL HISTORY: The patient is a nonsmoker, nondrinker. FAMILY HISTORY: Significant for cardiovascular disease. PHYSICAL EXAMINATION: GENERAL: Now, the patient is lying comfortably. He is not in acute distress. VITAL SIGNS: The blood pressure 139/61, pulse is 59, respiration is 19, temperature 97.9, SpO2 is 96% on 5 liters nasal cannula. HEENT: Conjunctivae pink. Sclerae nonicteric. NECK: Supple, no JVD. CHEST: Bilateral crackles, wheeze on forceful expiration. HEART: Rhythm regular, normal sound, no murmur. ABDOMEN: Soft. Bowel sounds present. No hepatosplenomegaly. CONSULT REPORT [id number] SANTO LIRIANO RECTAL: Deferred. EXTREMITIES: No cyanosis, no clubbing, no pedal edema. SKIN: Warm, normal turgor. CENTRAL NERVOUS SYSTEM: The patient is awake and alert. There are no obvious cranial nerve abnormalities. The gait was not tested. DIAGNOSTIC STUDIES: VQ scan of low probability. Chest x-ray, there is a bit increased interstitial marking. OTHER LABORATORY DATA: CBC: WBC is 7.4, hemoglobin 9.3, hematocrit 39.6, and platelet count 129. Chemistry: Sodium 143, potassium 3.3, BUN is 31, creatinine is 2. Troponin is 0.135. IMPRESSION: 1. Acute hypoxic respiratory failure. 2. Pulmonary edema. 3. Congestive heart failure with elevated proBNP, possible systolic dysfunction. 4. Acute exacerbation of chronic obstructive pulmonary disease. 5. Tracheobronchitis. 6. Obstructive sleep apnea. 7. Coronary artery disease. RECOMMENDATION: 1. Continue albuterol/ipratropium nebulizers. Start methylprednisolone IV. Start doxycycline IV, Brovana and budesonide nebulizer. 2. Antitussive 3. The patient is going for cardiac catheterization in the morning. Dr. Field, thank you for involving me in the care of Mr. Liriano. TRANSINT:[id number] Voice Confirmation ID: [id number] DOCUMENT ID: [id number] JOELLE ORDONEZ MD at 1406 CC: JERZY FIELD MD [id number] DICTATION DATE: 04/14/17 153 TONG SETTER: 04/14/171925 DIS IN 04/16/17 [id number] [place] [address]
== END 2017-04-16 18:05 | disposition home or self-care (01) ==
LOC: D.ER 15:23 → D.MS 19:01 → OBSVTIME 19:01 → D.M2 19:01
PROVIDERS: Family Medicine; ADMIT Family Medicine
DX: I21.4 Non-ST elevation (NSTEMI) myocardial infarction (principal); I25.10 Atherosclerotic heart disease of native coronary artery without angina pectoris; I25.82 Chronic total occlusion of coronary artery; Z95.5 Presence of coronary angioplasty implant and graft; J44.1 Chronic obstructive pulmonary disease with (acute) exacerbation; T82.855A Stenosis of coronary artery stent, initial encounter; Y83.8 Other surgical procedures as the cause of abnormal reaction of the patient, or of later complication, without mention of misadventure at the time of the procedure; Z95.0 Presence of cardiac pacemaker; J96.01 Acute respiratory failure with hypoxia; Z85.79 Personal history of other malignant neoplasms of lymphoid, hematopoietic and related tissues; Z85.46 Personal history of malignant neoplasm of prostate; Z85.528 Personal history of other malignant neoplasm of kidney; I50.21 Acute systolic (congestive) heart failure; D64.9 Anemia, unspecified; G47.33 Obstructive sleep apnea (adult) (pediatric)
CPT/HCPCS: 93459; C9600

== ENCOUNTER 2017-05-13 19:41 | Observation (INO) | payer MEDICARE ==
[~2017-05-13] VITALS: Ht 172.7 cm; Wt 76.5 kg
--- NOTE | ~2017-05-13 | DS ---
PATIENT:SANTO RODRIGUEZ :41 MEDICAL RECORD: [id number] DISCHARGE SUMMARY ADMISSION DATE: 05/13/17 DISCHARGE DATE: 05/15/17 DATE OF DISCHARGE: 05/15/2017 DIAGNOSES: 1. Congestive heart failure, chronic systolic dysfunction. 2. Coronary artery disease. 3. Pulmonary edema, fluid overload. 4. Hypertension. 5. Hyperlipidemia. HOSPITAL COURSE: Mr. Rodriguez has a known cardiomyopathy. He presented with congestive heart failure symptomatology. Underwent diuresis. Heart failure symptomatology cleared. Discharged home with the addition of Lasix 20 mg a day to his medical regimen. He will follow up with [facility] as previously scheduled in 1 month. TRANSINT:[id number] Voice Confirmation ID: [id number] DOCUMENT ID: [id number] TAVON PERAZA MD at 1324 CC: [id number] DICTATION DATE: 05/15/17 1324 TEACHER VISUALLY IMPAIRED: 05/16/17 0111 DIS IN 05/15/17 [address] [place] [address]
--- NOTE | ~2017-05-13 | EC ---
PATIENT:SANTO RODRIGUEZ DATE OF SERVICE: 05/13/17 SEX: M MEDICAL RECORD: [id number] DATE OF : 41 LOCATION:D.M2 D.210 AGE OF PATIENT: 72 ADMISSION DATE: 05/13/17 REFERRING PHYSICIAN: INTERPRETING PHYSICIAN: TAVON MIRANDA MD ECHOCARDIOGRAM REPORT ECHO CHARGES 4 ECHO COMPLETE CLINICAL DIAGNOSIS: CHF/MURMUR/CAD HX OF CAD/CABG/STENT/PACER ECHOCARDIOGRAPHIC MEASUREMENTS (adult normal given) AC root (d.<3.7cm) 4.3 cm LV Septum d (<1.2 cm> 1.4 cm Valve Excursion 1.5 cm LV Septum (systole) 1.6 cm Left Atria (s.<4.0cm> 4.4 cm LVPW d(<1.2cm) 1.6 cm RV (d.<2.3cm) 4.1 cm LVPW (sytole) 1.8 cm LV diastole(<5.6CM) 6.6 cm MV E-F(>70mm/sec) cm LV systole 5.4 cm LVOT Diameter 1.6 cm MV exc.(>10mm) 1.0 cm Est.ejection fraction (50-75%) % Pericardial Effusion N DOPPLER: LVIT cm/sec A 82.0 cm/sec E 100 cm/sec LA cm/sec RVSP 46 mmHg LVOT 147 cm/sec AOP1/2T 605 m/s Asc. Ao 268 cm/sec RVOT 87 cm/sec RA cm/sec PA 121 cm/sec AV Gradient Peak 28.76mmHg AV Mean 16.07mmHg AV Area 1.4 cm MV Gradient Peak 6.02 mmHg MV Mean 2.50 mmHg MV Area cm COMMENTS: Health Information Director: Matt LAM Process Line Operator: 1 Dr. Miranda TAPE# PACS DATE OF SERVICE: 05/14/2017 FINDINGS: 1. Left ventricular chamber size is dilated. Left ventricular systolic function is mildly reduced, overall ejection fraction of 35% to 40%. 2. Left atrium is enlarged at 4.2 cm. Right atrium and right ventricular chamber sizes are as well mildly dilated. 3. Valvular structures: Aortic valve demonstrates mild calcific aortic stenosis. Valve area calculates to 1.4 cm-squared with a gradient of 28 mm across the valve. The remaining valvular structures have normal structure and ECHOCARDIOGRAM REPORT [id number] SANTO RODRIGUEZ motion. 4. Doppler interrogation elsewise reveals mild aortic insufficiency, severe mitral regurgitation, moderate tricuspid regurgitation, no other valvular insufficiency or stenosis. 5. No evidence of pericardial effusion or left ventricular thrombus. TRANSINT:[id number] Voice Confirmation ID: [id number] DOCUMENT ID: [id number] TAVON MIRANDA MD at 1323 CC: [id number] DICTATION DATE: 05/14/17 1117 RESEARCH STUDY ASSISTANT: 05/14/17 1311 DIS IN 05/15/17 [facility] [address] [place] [address]
[~2017-05-13 19:41] MED LIST changes: +ASPIRIN81 MG PO; +MUCINEX DM ER1 EAC1 PO; +NORVASC10 MG PO; +TESSALON PERLE100 MG PO; +VIBRAMYCIN 100100 MG PO; +ZYLOPRIM300 MG PO
[2017-05-13 21:12] LABS: BASOPHILS 0.1 % (0-2); EOSINOPHILS 2.4 % (0-7); HEMATOCRIT 31.5 % (42.0-54.0); HEMOGLOBIN 10.3 g/dL (13.5-17.5); IMMATURE GRANULOCYTES 0.2 % (0-5); LYMPHOCYTES 13.3 % (15-50); MCH 28.9 pg (26.0-34.0); MCHC 32.7 g/dL (31.0-37.0); MCV 88.2 fL (80.0-100.0); MEAN PLATELET VOLUME 10.1 fL (7.4-10.4); MONOCYTES 4.3 % (2-11); NEUTROPHILS 79.7 % (40-80); RBC 3.57 10x6/uL (4.20-6.10); RDW 16.4 % (11.5-14.5); WBC 11.6 10x3/uL (4.8-10.8)
[2017-05-13 21:27] LABS: ALBUMIN 3.6 g/dL (3.4-5.0); ALKALINE PHOSPHATASE 131 U/L (46-116); ALT (SGPT) 16 U/L (10-68); BILIRUBIN - TOTAL 0.37 mg/dL (0.2-1.3); CALC OSMOLALITY 285 mosm/kg (275-300); CALCIUM 9.4 mg/dL (8.5-10.1); CARBON DIOXIDE 23.6 mmol/L (21.0-32.0); CHLORIDE - SERUM 105 mmol/L (98-107); CREATININE - SERUM 1.9 mg/dL (0.6-1.3); GLUCOSE 118 mg/dL (74-106); POTASSIUM - SERUM 3.5 mmol/L (3.5-5.1); PROTEIN - SERUM 7.6 g/dL (6.4-8.2); SODIUM 140 mmol/L (136-145); UREA NITROGEN 28 mg/dL (7-18); eGFR NON AFRICAN AMERICAN 37 mL/min (90-120)
[2017-05-13 21:38] LABS: CHOLESTEROL, TOTAL 238 mg/dL (0-200); CKMB 0.8 U/L (0.0-3.6); CREATINE KINASE 57 UL (21-232); HDL CHOLESTEROL 34 mg/dL (32-96); LDL CHOLESTEROL 175 mg/dL (0-100); LDL-HDL RATIO 5.1 ratio (1.5-3.5); TRIGLYCERIDE 146 mg/dL (30-200)
[2017-05-13 21:42] LABS: TROPONIN-I < 0.017 ng/mL (0.000-0.060)
[2017-05-13 21:43] LABS: PLATELET COUNT 178 10x3/uL (130-400)
[2017-05-13] MEDS ORDERED: SYNTHROID50 MCG PO (23:47)
[2017-05-14] VITALS: BP 152/65
[2017-05-14 02:54] VITALS: BP 152/65; BMI 27.1
[2017-05-14 04:00] VITALS: BP 133/63
[2017-05-14 06:16] LABS: CKMB 0.8 U/L (0.0-3.6); CREATINE KINASE 52 UL (21-232)
[2017-05-14 08:32] VITALS: BP 143/57
[2017-05-14 11:44] LABS: CKMB 0.8 U/L (0.0-3.6); CREATINE KINASE 49 UL (21-232)
[2017-05-14 11:58] LABS: TROPONIN-I 0.125 ng/mL (0.000-0.060)
[2017-05-14 12:50] VITALS: Ht 172.7 cm; Wt 76.5 kg
[2017-05-14 21:52] VITALS: BP 147/67
[2017-05-15 06:17] VITALS: BP 149/65
[2017-05-15 08:49] VITALS: BP 129/72
[2017-05-15 12:29] VITALS: BP 143/77
== END 2017-05-15 15:17 | disposition home or self-care (01) ==
LOC: D.ER 19:41 → D.M2 21:17 → OBSVTIME 21:17 → D.M2 05-15 15:17
PROVIDERS: Emergency Medicine
DX: I11.0 Hypertensive heart disease with heart failure (principal); I50.23 Acute on chronic systolic (congestive) heart failure; E78.5 Hyperlipidemia, unspecified; I25.10 Atherosclerotic heart disease of native coronary artery without angina pectoris; Z95.5 Presence of coronary angioplasty implant and graft; Z95.1 Presence of aortocoronary bypass graft; Z95.0 Presence of cardiac pacemaker; J44.9 Chronic obstructive pulmonary disease, unspecified; I42.9 Cardiomyopathy, unspecified

== ENCOUNTER 2017-09-08 00:28 | Inpatient (IN) | payer MEDICARE ==
[~2017-09-08] VITALS: Ht 172.7 cm; Wt 73.3 kg
--- NOTE | ~2017-09-08 | HEMODYNAMI ---
PATIENT:SANTO RODRIGUEZ MEDICAL RECORD: [id number] : 41 [facility] D.[id number] ADMISSION DATE: 09/08/17 Generatedon:09/14/201714:02 Patient name: SANTO RODRIGUEZ Patient #: [id number] SSN: : 1945 Date of study: 09/14/2017 Page: Of Hemodynamic Procedure Report Patient Data Patient Demographics Procedure consent was obtained First Name: SANTO Gender: Male Last Name: JENNIFER : 1945 [facility] Initial: DOUG Age: 72 year(s) Patient #: [id number] Race: Additional ID: [id number] Contact details [address]: [address] [place] [address] State: [place] City: [place] Zip code: [address] Past Medical History Allergies Allergen Reaction Date Comments Reported Other allergy 04/15/2017 Erythromycin Other allergy 09/14/2017 Erythromycin base Admission Admission Data Admission Date: 09/08/2017 Admission Time: 2:31 Room #: D.2134 Lab Results Lab Result Date: 09/14/2017 Lab Result Time: 5:30 Biochemistry Name Units Result Min Max BUN mg/dl 35 --(----)-* 7 18 Creatinine mg/dl 1.8 --(----)-* 0.6 1.3 CBC Name Units Result Min Max Hematocrit % 31.5 *-(----)-- 42 54 Hemoglobin g/dl 10 *-(----)-- 13.5 17.5 Procedure Procedure Types Cath Procedure Diagnostic Procedure LHC LHC w/Coronaries w/Grafts BRONSON Procedure Description Procedure Date Procedure Date: 09/14/2017 Procedure Start Time: 13:39 Procedure End Time: 13:59 Procedure Staff Name Function Duy Lombardo MD Performing Physician Janice Herrera Roof Service Technician Chyna Montejo RT Monitor Dirk Cabral RT Scrub Kenan Sloan RN Nurse Shad Avila MD Additional personnel Procedure Data Cath Procedure Fluoroscopy Diagnostic fluoroscopy Total fluoroscopy Time: 4.1 time: 4.1 min min Diagnostic fluoroscopy Total fluoroscopy dose: 504 dose: 504 mGy mGy Contrast Material Contrast Material Type Amount (ml) Isovue 370 74 Entry Location Entry Primary Successful Side Size Upsize Upsize Entry Closure Succes sful Closure Location (Fr) 1 (Fr) 2 (Fr) Remarks Device Remarks Femoral Right 5 Fr Exoseal artery Estimated blood loss: 5 ml Diagnostic catheters Device Type Used For End Catheter Placement MULTIPACK JL 4.0 5Fr Procedure catheter DIAGNOSTIC IM 5Fr Procedure catheter ([id number]) DIAGNOSTIC AR MOD 5Fr Procedure Catheter ([id number]) MULTIPACK Pigtail 5 Fr Procedure catheter Procedure Complications No complications Procedure Medications Medication Administration Route Dosage 0.9% NaCl I.V. 100 ml/hr Oxygen etCO2 Nasal cannula 2 l/min Heparin Flush Bag added to field 2 bags (1000units/500ml NS) Lidocaine 2% added to field 20 Benadryl I.V. 50 mg Refer to Anesthesia Notes for Sedation Medications unlisted medication P.O. 20 ml Hemodynamics Rest HGB: 10 (g/dl) Heart Rate: 60 (bpm) Pressure Samples Time Site Value (mmHg) Purpose Heart Use Rate(bpm) 13:53 LV 170/8,13 Snapshot 60 13:54 LV 134/37,62 Snapshot 60 13:54 AO 163/65(100) Pullback 60 13:54 LV 165/5,13 Pullback 60 Gradients Valve Time Site 1 Site 2 Mean SEP/DFP Peak To Heart Use (mmHg) (sec/min) Peak Rate (mmHg) (bpm) Aortic 13:54 LV AO 8 11 2 60 165/5,13 163/65(100) Calculations Valve P-P Mean Valve Index Valve Source Name Gradient Area Flow (cm2) Aortic 2 8 2 8 Snapshots Pre Cath Intra NCS Post Cath Vital Signs Time Heart Resp SPO2 etCO2 NIBP (mmHg) Rhythm Pain Sedation Rate (ipm) (%) (mmHg) Status Level (bpm) 12:58:13 60 17 100 32.9 159/75(130) Paced 0 (11) 10(A) , No pain 13:02:55 63 19 100 27 159/78(131) Paced 0 (11) 10(A) , No pain 13:07:42 59 17 99 33.7 156/80(133) Paced 0 (11) 10(A) , No pain 13:12:23 61 20 100 0 129/69(101) Paced 0 (11) 8(A) , No pain 13:17:03 60 15 97 30 128/69(94) Paced 0 (11) 8(A) , No pain 13:21:05 60 14 96 46.5 131/67(100) Paced 0 (11) 8(A) , No pain 13:25:47 60 10 91 8.2 121/62(106) Paced 0 (11) 8(A) , No pain 13:30:26 59 17 95 19.4 133/71(97) Paced 0 (11) 9(A) , No pain 13:35:07 60 15 99 8.9 140/74(118) Paced 0 (11) 9(A) , No pain 13:39:50 60 15 97 11.2 138/74(118) Paced 0 (11) 9(A) , No pain 13:44:32 63 16 98 34.4 144/75(125) Paced 0 (11) 10(A) , No pain 13:49:15 60 14 100 29.9 151/75(125) Paced 0 (11) 10(A) , No pain 13:54:01 59 18 99 35.2 153/71(130) Paced 0 (11) 10(A) , No pain 13:58:46 60 14 100 34.4 151/79(135) Paced 0 (11) 10(A) , No pain Medications Time Medication Route Dose Verified Delivered Reason Notes Eff ectiveness by by 13:03:22 0.9% NaCl I.V. 100 Kenan Kenan Per ml/hr Luther Sloan physician RN RN 13:03:35 Oxygen etCO2 2 Kenan Kenan Per Nasal l/min Luther Sloan physician cannula RN RN 13:03:47 Heparin Flush added 2 Kenan Kenan used for Bag to bags Luther Sloan procedure (1000units/500ml field RN RN NS) 13:03:57 Lidocaine 2% added 20ml Kenan Kenan for local to vial Luther Sloan anesthetic RN RN 13:04:06 Benadryl I.V. 50 mg Kenan Kenan Per Luther Sloan physician RN RN 13:10:51 Refer to Kenan Kenan for Anesthesia Notes Luther Sloan sedation for Sedation RN RN Medications 13:13:08 lidocaine P.O. 20 ml Kenan Kenan viscous Luther Sloan RN adoption manager Log Time Note 12:41:05 Signed procedure consent form obtained from patient. 12:41:08 Time tracking: Regular hours (M-F 7:00 - 5:00) 12:48:38 Chyna Montejo RT(R) sent for patient. Start room use. 12:48:42 Plan of Care:Hemodynamics will remain stable., Cardiac rhythm will remain stable., Comfort level will be maintained., Respiratory function will remain adequate., Patient/ family verbilizes understanding of procedure., Procedure tolerated without complication., Recovers from procedure without complications.. 12:52:44 Patient arrived from Med II to CCL 1. Patient remains on bed/stretcher for procedure. 12:52:45 Warm blankets applied, and ulices hugger turned on for patient comfort. 12:52:45 Correct patient and procedure confirmed by team. 12:53:03 H&P Date Dictated: 09/11/2017 Within 30 days and on chart.. 12:53:04 Pre-procedure instructions explained to patient. 12:53:05 Pre-op teaching completed and patient verbalized understanding. 12:53:06 Family in waiting room. 12:53:08 Patient NPO since Midnight. 12:53:27 Patient allergic to Other allergyErythromycin base 12:57:00 Shad Avila MD present and monitoring patient for TIVA. 12:57:08 Janice Herrera Slitter Scorer Cut Off Operator present for BRONSON. 12:57:15 ECG and BP/O2 sat monitors applied to patient. 12:57:17 Vital chart was started 12:57:21 Baseline sample Acquired. 12:57:24 Rhythm: paced 12:57:26 Full Disclosure recording started 12:57:30 Is patient on blood thinner?Yes 12:57:32 ACC The patient was administered the following blood thiners within the last 24 hours: ACCPlavix 12:57:42 Patient diabetic? No. 12:57:44 Previous problem with sedation/anesthesia? No ? 12:57:46 Snore? Yes 12:57:47 Sleep apnea? Yes 12:57:48 Deviated septum? No 12:57:48 Opens mouth fully? Yes 12:57:49 Sticks out tongue? Yes 12:57:51 Airway obstruction? No ? 12:57:55 Dentures? No ? 12:58:03 Patient pain scale 0/10 ?. 12:58:16 IV patent on arrival in left forearm with 0.9% NaCl at [facility]. 12:58:56 Lab Result : BUN 35 mg/dl 12:58:56 Lab Result : Creatinine 1.8 mg/dl 12:58:56 Lab Result : Hematocrit 31.5 % 12:58:56 Lab Result : Hemoglobin 10 g/dl 12:58:59 Lab results completed and on chart. 12:59:03 Pre procedure: right dorsailis pedis pulse 2+ Normal; easily identifiable; not easily obliterated 13:03:22 0.9% NaCl 100 ml/hr I.V. was administered by Kenan Sloan RN; Per physician; 13:03:35 Oxygen 2 l/min etCO2 Nasal cannula was administered by Kenan Sloan RN; Per physician; 13:03:47 Heparin Flush Bag (1000units/500ml NS) 2 bags added to field was administered by Kenan Sloan RN; used for procedure; 13:03:57 Lidocaine 2% 20ml vial added to field was administered by Kenan Sloan RN; for local anesthetic; 13:04:06 Benadryl 50 mg I.V. was administered by Kenan Sloan RN; Per physician; 13:10:51 Refer to Anesthesia Notes for Sedation Medications was administered by Kenan Sloan RN; for sedation; 13:11:26 Physician arrived 13:11:27 --------ALL STOP TIME OUT------ 13:11:30 Final Timeout: patient, procedure, and site verified with staff and physician. All members of the team are in agreement. 13:11:34 Physical assessment completed. ASA score P 2 - A patient with mild systemic disease as per Dyu Lombardo MD. 13:11:38 Sedation plan: TIVA Medication:Propofol 13:12:46 BRONSON started. 13:13:08 lidocaine viscous 20 ml P.O. was administered by Kenan Sloan RN; ; 13:18:30 BRONSON completed. 13:20:20 Pt. moved to table. 13:33:59 Use device set Femoral Dx 13:34:01 ACIST Syringe (35507) opened to sterile field. 13:34:02 ACIST Hand Control (76332) opened to sterile field. 13:34:03 ACIST Manifold (54971) opened to sterile field. 13:34:03 Tegaderm 4 x 4 (1626W) opened to sterile field. 13:34:05 Bag Decanter (2001S) opened to sterile field. 13:34:07 Medline Cath Pack ([id number]) opened to sterile field. 13:34:07 DIAGNOSTIC WIRE .035 260cm J wire (983207) opened to sterile field. 13:34:11 DIAGNOSTIC Multipack 5Fr catheter set (UU9988) opened to sterile field. 13:34:13 SHEATH Prelude 5Fr 0.035 (UOB-2E-02-035) opened to sterile field. 13:34:14 PERCUTANEOUS ENTRY 19GA needle opened to sterile field. 13:35:56 --------ALL STOP TIME OUT------ 13:35:58 Final Timeout: patient, procedure, and site verified with staff and physician. All members of the team are in agreement. 13:36:01 Right groin site verified by team. 13:36:17 Physical assessment completed. ASA score P 2 - A patient with mild systemic disease as per Duy Lombardo MD. 13:39:01 Procedure started. 13:39:06 Local anesthetic to right femoral artery with Lidocaine 2% by Duy Lombardo MD.INITIAL ACCESS ONLY 13:40:03 A 5 Fr sheath was inserted into the Right Femoral artery 13:40:18 Zero performed for pressure channel P1 13:40:40 Zero performed for pressure channel P1 13:40:54 Zero performed for pressure channel P1 13:41:05 Zero performed for pressure channel P1 13:43:03 A MULTIPACK JL 4.0 5Fr catheter was advanced over the wire and used for Procedure. 13:45:04 LCA angiography performed. 13:45:13 Catheter exchanged over wire. 13:45:57 A DIAGNOSTIC IM 5Fr catheter ([id number]) was advanced over the wire and used for Procedure. 13:47:46 WOODARD to LAD angiography performed. 13:48:00 Catheter exchanged over wire. 13:48:34 A DIAGNOSTIC AR MOD 5Fr Catheter ([id number]) was advanced over the wire and used for Procedure. 13:49:47 RCA angiography performed. 13:50:02 SVG to RPDA angiography performed. 13:50:47 Catheter exchanged over wire. 13:51:04 A MULTIPACK Pigtail 5 Fr catheter was advanced over the wire and used for Procedure. 13:51:53 Injector settings: Ml/sec: 10, Volume: 20, 13:51:55 LV gram done using ROSA 13:53:12 LV hemodynamics recorded. 13:54:18 EF : 40 % 13:54:29 Catheter exchanged over wire. 13:55:01 EXOSEAL 5Fr (EX500) opened to sterile field. 13:55:52 Sheath removed intact; hemostasis achieved with Exoseal to the Right Femoral artery. 13:57:03 Procedure ended.(Physican Out) 13:57:26 Fluoroscopy time 04.10 minutes. 13:57:30 Flurop Dose total: 504 13:57:30 Fluoroscopy dose: 504 mGy 13:57:34 Contrast amount:Isovue 370 74ml. 13:57:35 Sharps counted by scrub and verified by R.N. 13:57:40 Post-op/insertion site Right Femoral artery dressed using a 4 x 4 and Tegaderm. 13:57:44 Post right femoral artery:stable, soft, clean and dry 13:57:53 Post-procedure physical assessment completed. ASA score P 2 - A patient with mild systemic disease as per Duy Lombardo MD. 13:57:55 Post procedure rhythm: unchanged. 13:57:58 Estimated blood loss: 5 ml 13:57:59 Post procedure instruction explained to patient.Patient verbalizes understanding. 13:58:00 Patient needs reinforcement of post procedure teaching. 13:58:15 Procedure type changed to Cath procedure, Diagnostic procedure, LHC, LHC w/Coronaries w/Grafts, BRONSON 13:59:31 Procedure and supply charges have been captured, reviewed, submitted and are correct. 13:59:33 Procedure Complication : No complications 13:59:35 Vital chart was stopped 13:59:37 See physician's report for complete and final results. 13:59:41 Report given to PCU. 13:59:44 Patient transfered to PCU with Bed. 13:59:47 Procedure ended. 13:59:47 Full Disclosure recording stopped 13:59:54 End room use (Document Last) Device Usage Item Name Manufacture Quantity Catalog Number Hospital Part Current M inimal Lot# / Charge Number Stock Stock Serial# Code ACIST Syringe Acist 1 63263 [id number] 718625 910975 2 0 (09840) [employer] Inc ACIST Hand Acist 1 82525 982864 975909 042945 5 Control (10658) [employer] ACIST Manifold Acist 1 92002 741255 665339 926185 5 (26938) [employer] Inc Tegaderm 4 x 4 3M 1 1626W 976324 391240 255460 5 (1626W) Bag Decanter Microtek 1 2002S 359079 41575 683534 5 (2001S) Medical Inc. Medline Cath Cardinal 1 [id number] 642243 98832 101576 5 Pack Health ([id number]) DIAGNOSTIC WIRE [facility] Brice 1 433879 481835 484501 456633 3 0 .035 260cm J wire (471645) DIAGNOSTIC Cardinal 1 MD1845 364656 38019 382863 3 0 Multipack 5Fr Health catheter set (GG0948) SHEATH Prelude Merit 1 FAQ-0W-42-035 871182 998363 435338 5 5Fr 0.035 Medical ([id number]-8Q-56-035) PERCUTANEOUS Cook Medical 1 Z53281 002310 311058 5 ENTRY 19GA needle MULTIPACK JL Cardinal 1 149174 5 4.0 5Fr Health catheter DIAGNOSTIC IM Cardinal 1 [id number] 778571 123491 381870 5 5Fr catheter Health (940528L) DIAGNOSTIC AR Cardinal 1 [id number] 276307 234541 318814 1 5 MOD 5Fr Health Catheter (003971S) MULTIPACK Cardinal 1 606821 5 Pigtail 5 Fr Health catheter EXOSEAL 5Fr Cardinal 1 EX500 225193 172310 924396 1 0 (EX500) Health Signature Audit [place] Stage Time Signature Unsigned Intra-Procedure 09/14/2017 Chyna Montejo 2:02:17 PM RT(R) Signatures Monitor : Chyna Montejo Signature : RT Date : Time : [place] [address]
--- NOTE | ~2017-09-08 | EC ---
PATIENT:SANTO RODRIGUEZ DATE OF SERVICE: 09/08/17 SEX: M MEDICAL RECORD: [id number] DATE OF : 41 LOCATION:D.M2 D.213 AGE OF PATIENT: 72 ADMISSION DATE: 09/08/17 REFERRING PHYSICIAN: INTERPRETING PHYSICIAN: OCTAVIA SANTORO MD ECHOCARDIOGRAM REPORT ECHO CHARGES 4 ECHO COMPLETE Date: 09/14 CLINICAL DIAGNOSIS: MITRAL REGURG ECHOCARDIOGRAPHIC MEASUREMENTS (adult normal given) AC root (d.<3.7cm) 3.8 cm LV Septum d (<1.2 cm> 1.5 cm Valve Excursion 1.4 cm LV Septum (systole) 1.7 cm Left Atria (s.<4.0cm> 4.7 cm LVPW d(<1.2cm) 1.8 cm RV (d.<2.3cm) 3.3 cm LVPW (sytole) 2.1 cm LV diastole(<5.6CM) 7.1 cm MV E-F(>70mm/sec) cm LV systole 5.1 cm LVOT Diameter 1.3 cm MV exc.(>10mm) 1.8 cm Est.ejection fraction (50-75%) % DOPPLER: LVIT cm/sec A 103 cm/sec E 153 cm/sec LA cm/sec RVSP 55 mmHg LVOT 121 cm/sec AOP1/2T m/s Asc. Ao 252 cm/sec RVOT 84 cm/sec RA cm/sec PA 122 cm/sec AV Gradient Peak 25.35mmHg AV Mean 17.19mmHg AV Area 1.0 cm MV Gradient Peak 13.92mmHg MV Mean 3.99 mmHg MV Area cm COMMENTS: Fish Inspector: Latisha HONGOE Atm Technician: 3 Dr. Alvarez TAPE# PACS Pericardial Effusion N DATE OF SERVICE: 09/14/2017 Transesophageal Note. DESCRIPTION OF PROCEDURE: After general sedation via TIVA anesthesia, Omniplane probe was placed into the distal esophagus, proximal stomach without difficulty. FINDINGS: As follows, LVH is present. LV internal dimensions appear upper limits of normal to mildly dilated. LV is globally hypokinetic with reduced EF 35% to 40%. Aortic valve is sclerotic without evidence of stenosis by Doppler ECHOCARDIOGRAM REPORT [id number] SANTO RODRIGUEZ interrogation. Mild AI by colorflow imaing. Left atrium pper limits of normal to mildly dilated. Left atrial appendage well visualized without any contractility. No evidence of thrombus. Mitral valve is visualized. Mitral annular calcification. No true prolapse, severe MR, and a posterior directed jet. Right-sided chambers were grossly normal. Mild TR by color flow imaging. TRANSINT:[id number] Voice Confirmation ID: [id number] DOCUMENT ID: [id number] OCTAVIA SANTORO MD at 1214 CC: [id number] DICTATION DATE: 09/14/17 1326 SHOW HOST/HOSTESS: 09/14/17 1345 ADM IN [facility] [address] [id number]
[~2017-09-08 00:28] MED LIST changes: +SYNTHROID50 MCG PO
[2017-09-08 01:05] LABS: BASOPHILS 0.1 % (0-2); EOSINOPHILS 1.5 % (0-7); HEMATOCRIT 27.2 % (42.0-54.0); HEMOGLOBIN 8.6 g/dL (13.5-17.5); IMMATURE GRANULOCYTES 0.3 % (0-5); LYMPHOCYTES 9.7 % (15-50); MCH 27.4 pg (26.0-34.0); MCHC 31.6 g/dL (31.0-37.0); MCV 86.6 fL (80.0-100.0); MEAN PLATELET VOLUME 10.4 fL (7.4-10.4); MONOCYTES 5.2 % (2-11); NEUTROPHILS 83.2 % (40-80); RBC 3.14 10x6/uL (4.20-6.10); RDW 16.5 % (11.5-14.5); WBC 13.6 10x3/uL (4.8-10.8)
[2017-09-08 01:09] LABS: PLATELET COUNT 222 10x3/uL (130-400)
[2017-09-08 01:21] LABS: ALBUMIN 3.4 g/dL (3.4-5.0); ALKALINE PHOSPHATASE 151 U/L (46-116); ALT (SGPT) 15 U/L (10-68); CALC OSMOLALITY 289 mosm/kg (275-300); CALCIUM 9.4 mg/dL (8.5-10.1); CARBON DIOXIDE 22.2 mmol/L (21.0-32.0); CHLORIDE - SERUM 105 mmol/L (98-107); CREATININE - SERUM 2.1 mg/dL (0.6-1.3); GLUCOSE 130 mg/dL (74-106); POTASSIUM - SERUM 3.6 mmol/L (3.5-5.1); PROTEIN - SERUM 7.9 g/dL (6.4-8.2); SODIUM 141 mmol/L (136-145); UREA NITROGEN 31 mg/dL (7-18); eGFR NON AFRICAN AMERICAN 33 mL/min (90-120)
[2017-09-08 01:44] LABS: CKMB 0.6 U/L (0.0-3.6); CREATINE KINASE 47 UL (21-232); PRO BNP 6424 pg/mL (0-125); TROPONIN-I < 0.017 ng/mL (0.000-0.060)
[2017-09-08 10:04] LABS: APPEARANCE CLEAR (CLEAR); BILIRUBIN NEGATIVE (NEGATIVE); COLOR YELLOW (YELLOW); GLUCOSE NEGATIVE (NEGATIVE); KETONE NEGATIVE (NEGATIVE); NITRITE NEGATIVE (NEGATIVE); PROTEIN NEGATIVE (NEGATIVE); UROBILINOGEN NORMAL (NORMAL)
[2017-09-08 10:33] LABS: % SATURATION 7 % (15-55); IRON 24 ug/dl (35-150); TOTAL IRON BIND CAPACITY 336 ug/dl (260-445); UNSAT IRON BIND CAPACITY 312 ug/dl (150-375)
[2017-09-08 20:00] VITALS: BP 127/55
[2017-09-08 23:41] VITALS: BMI 25.9
[2017-09-09] VITALS: BP 132/63
[2017-09-09 04:00] VITALS: BP 140/58
[2017-09-09 05:34] LABS: BASOPHILS 0.2 % (0-2); EOSINOPHILS 2.1 % (0-7); HEMATOCRIT 25.5 % (42.0-54.0); IMMATURE GRANULOCYTES 0.3 % (0-5); LYMPHOCYTES 10.3 % (15-50); MCH 27.3 pg (26.0-34.0); MCHC 31.4 g/dL (31.0-37.0); MEAN PLATELET VOLUME 10.1 fL (7.4-10.4); MONOCYTES 6.2 % (2-11); NEUTROPHILS 80.9 % (40-80); PLATELET COUNT 209 10x3/uL (130-400); RBC 2.93 10x6/uL (4.20-6.10); RDW 16.7 % (11.5-14.5); WBC 10.2 10x3/uL (4.8-10.8)
[2017-09-09 06:06] LABS: ANION GAP 14.2 mmol/L (8-16); CALCIUM 9.1 mg/dL (8.5-10.1); CARBON DIOXIDE 25.1 mmol/L (21.0-32.0); CREATININE - SERUM 1.8 mg/dL (0.6-1.3); POTASSIUM - SERUM 3.3 mmol/L (3.5-5.1)
[2017-09-09 08:19] LABS: FOLATE (FOLIC ACID) - SERUM >20.0 ng/mL (>3.0)
[2017-09-09 08:30] VITALS: BP 138/64
[2017-09-09 11:04] VITALS: BP 132/61
[2017-09-09 13:22] VITALS: BMI 25.2
[2017-09-09 16:52] VITALS: BP 130/68
[2017-09-09 20:05] VITALS: BP 136/64
[2017-09-10] VITALS: BP 132/75
[2017-09-10 04:00] VITALS: BP 119/52
[2017-09-10 05:43] LABS: BASOPHILS 0.2 % (0-2); EOSINOPHILS 4.8 % (0-7); HEMATOCRIT 27.2 % (42.0-54.0); HEMOGLOBIN 8.7 g/dL (13.5-17.5); IMMATURE GRANULOCYTES 0.3 % (0-5); LYMPHOCYTES 17.1 % (15-50); MCH 27.4 pg (26.0-34.0); MCV 85.8 fL (80.0-100.0); MEAN PLATELET VOLUME 9.8 fL (7.4-10.4); MONOCYTES 7.2 % (2-11); NEUTROPHILS 70.4 % (40-80); PLATELET COUNT 218 10x3/uL (130-400); RBC 3.17 10x6/uL (4.20-6.10); RDW 16.3 % (11.5-14.5)
[2017-09-10 05:47] LABS: WBC 6.5 10x3/uL (4.8-10.8)
[2017-09-10 06:03] LABS: CALCIUM 8.8 mg/dL (8.5-10.1); CARBON DIOXIDE 25.4 mmol/L (21.0-32.0); CREATININE - SERUM 1.8 mg/dL (0.6-1.3)
[2017-09-10 06:07] LABS: ANION GAP 13.6 mmol/L (8-16)
[2017-09-10 08:29] VITALS: BP 140/64
[2017-09-10 11:45] VITALS: BP 136/70
[2017-09-10 20:00] VITALS: BP 144/69
[2017-09-11 02:57] VITALS: BP 140/63
[2017-09-11 05:27] VITALS: BP 147/68
[2017-09-11 05:33] LABS: BASOPHILS 0.3 % (0-2); EOSINOPHILS 5.7 % (0-7); HEMATOCRIT 27.9 % (42.0-54.0); HEMOGLOBIN 8.9 g/dL (13.5-17.5); IMMATURE GRANULOCYTES 0.3 % (0-5); MCH 27.8 pg (26.0-34.0); MCHC 31.9 g/dL (31.0-37.0); MCV 87.2 fL (80.0-100.0); MEAN PLATELET VOLUME 9.9 fL (7.4-10.4); MONOCYTES 7.3 % (2-11); NEUTROPHILS 66.4 % (40-80); PLATELET COUNT 246 10x3/uL (130-400); RDW 16.1 % (11.5-14.5); WBC 6.9 10x3/uL (4.8-10.8)
[2017-09-11 05:45] LABS: ANION GAP 15.1 mmol/L (8-16); CALCIUM 9.4 mg/dL (8.5-10.1); CARBON DIOXIDE 24.9 mmol/L (21.0-32.0); CREATININE - SERUM 1.7 mg/dL (0.6-1.3)
[2017-09-11 08:27] VITALS: BP 144/68
[2017-09-11 12:15] VITALS: BP 141/66
[2017-09-11 15:42] VITALS: BP 139/62
[2017-09-11 16:53] VITALS: Ht 172.7 cm; Wt 73.3 kg
[2017-09-11 20:00] VITALS: BP 139/97
[2017-09-12 01:00] VITALS: BP 134/64
[2017-09-12 04:00] VITALS: BP 140/66
[2017-09-12 06:41] LABS: BASOPHILS 0.3 % (0-2); EOSINOPHILS 6.9 % (0-7); HEMOGLOBIN 9.2 g/dL (13.5-17.5); IMMATURE GRANULOCYTES 0.3 % (0-5); LYMPHOCYTES 20.1 % (15-50); MCH 27.3 pg (26.0-34.0); MCHC 31.7 g/dL (31.0-37.0); MCV 86.1 fL (80.0-100.0); MEAN PLATELET VOLUME 9.5 fL (7.4-10.4); MONOCYTES 8.1 % (2-11); NEUTROPHILS 64.3 % (40-80); PLATELET COUNT 257 10x3/uL (130-400); RBC 3.37 10x6/uL (4.20-6.10); RDW 16.2 % (11.5-14.5); WBC 7.1 10x3/uL (4.8-10.8)
[2017-09-12 06:55] LABS: ANION GAP 13.9 mmol/L (8-16); CALCIUM 9.5 mg/dL (8.5-10.1); CARBON DIOXIDE 25.6 mmol/L (21.0-32.0); CREATININE - SERUM 1.6 mg/dL (0.6-1.3); POTASSIUM - SERUM 3.5 mmol/L (3.5-5.1)
[2017-09-12 08:53] VITALS: BP 140/65
[2017-09-12 11:43] VITALS: BP 134/62
[2017-09-12 15:17] VITALS: BP 125/90
[2017-09-12 20:00] VITALS: BP 136/70
[2017-09-13] VITALS: BP 136/70
[2017-09-13 04:00] VITALS: BP 149/70
[2017-09-13 05:43] LABS: BASOPHILS 0.3 % (0-2); EOSINOPHILS 6.3 % (0-7); HEMATOCRIT 28.8 % (42.0-54.0); HEMOGLOBIN 9.1 g/dL (13.5-17.5); IMMATURE GRANULOCYTES 0.3 % (0-5); LYMPHOCYTES 21.5 % (15-50); MCH 27.3 pg (26.0-34.0); MCHC 31.6 g/dL (31.0-37.0); MCV 86.5 fL (80.0-100.0); MEAN PLATELET VOLUME 9.3 fL (7.4-10.4); MONOCYTES 7.6 % (2-11); PLATELET COUNT 229 10x3/uL (130-400); RBC 3.33 10x6/uL (4.20-6.10); RDW 16.1 % (11.5-14.5); WBC 6.5 10x3/uL (4.8-10.8)
[2017-09-13 06:29] LABS: ANION GAP 12.6 mmol/L (8-16); CALCIUM 9.1 mg/dL (8.5-10.1); CREATININE - SERUM 1.7 mg/dL (0.6-1.3); POTASSIUM - SERUM 3.6 mmol/L (3.5-5.1)
[2017-09-13 08:44] VITALS: BP 148/68
[2017-09-13 11:42] VITALS: BP 131/61
[2017-09-13 15:23] VITALS: BP 132/59
[2017-09-13 20:00] VITALS: BP 142/65
[2017-09-14 04:00] VITALS: BP 146/65
[2017-09-14 06:18] LABS: BASOPHILS 0.4 % (0-2); EOSINOPHILS 4.9 % (0-7); HEMATOCRIT 31.5 % (42.0-54.0); IMMATURE GRANULOCYTES 0.5 % (0-5); LYMPHOCYTES 23.3 % (15-50); MCH 27.3 pg (26.0-34.0); MCHC 31.7 g/dL (31.0-37.0); MCV 86.1 fL (80.0-100.0); MEAN PLATELET VOLUME 9.8 fL (7.4-10.4); MONOCYTES 6.7 % (2-11); NEUTROPHILS 64.2 % (40-80); RBC 3.66 10x6/uL (4.20-6.10)
[2017-09-14 06:32] LABS: PLATELET COUNT 296 10x3/uL (130-400); WBC 8.4 10x3/uL (4.8-10.8)
[2017-09-14 06:46] LABS: ANION GAP 16.1 mmol/L (8-16); CALCIUM 9.7 mg/dL (8.5-10.1); CARBON DIOXIDE 26.2 mmol/L (21.0-32.0); CREATININE - SERUM 1.8 mg/dL (0.6-1.3); POTASSIUM - SERUM 3.3 mmol/L (3.5-5.1)
[2017-09-14 08:19] VITALS: BP 150/84
[2017-09-14 12:00] VITALS: BP 148/68
[2017-09-14 15:00] VITALS: BP 156/71
[2017-09-14 20:50] VITALS: BP 144/64
[2017-09-15 01:02] VITALS: BP 126/49
[2017-09-15 05:27] LABS: BASOPHILS 0.2 % (0-2); EOSINOPHILS 3.4 % (0-7); HEMATOCRIT 31.6 % (42.0-54.0); IMMATURE GRANULOCYTES 0.3 % (0-5); LYMPHOCYTES 19.2 % (15-50); MCH 27.6 pg (26.0-34.0); MCHC 31.6 g/dL (31.0-37.0); MCV 87.3 fL (80.0-100.0); MEAN PLATELET VOLUME 9.4 fL (7.4-10.4); MONOCYTES 6.4 % (2-11); NEUTROPHILS 70.5 % (40-80); PLATELET COUNT 241 10x3/uL (130-400); RBC 3.62 10x6/uL (4.20-6.10); RDW 16.1 % (11.5-14.5); WBC 9.7 10x3/uL (4.8-10.8)
[2017-09-15 05:30] VITALS: BP 126/67
[2017-09-15 05:43] LABS: ANION GAP 11.4 mmol/L (8-16); CALCIUM 9.2 mg/dL (8.5-10.1); CREATININE - SERUM 1.6 mg/dL (0.6-1.3); POTASSIUM - SERUM 3.4 mmol/L (3.5-5.1)
[2017-09-15 07:43] VITALS: BP 136/70
== END 2017-09-15 16:20 | disposition home or self-care (01) | DRG 286 ==
LOC: D.ER 00:28 → D.EDHOLD 02:31 → D.M2 02:31
PROVIDERS: Family Medicine; Internal Medicine Cardiovascular Disease; Internal Medicine Nephrology
PROC: B2151ZZ Fluoroscopy of Left Heart using Low Osmolar Contrast (ICD-10-PCS; 2017-09-14)
PROC: 4A023N7 Measurement of Cardiac Sampling and Pressure, Left Heart, Percutaneous Approach (ICD-10-PCS; 2017-09-14)
PROC: B2121ZZ Fluoroscopy of Single Coronary Artery Bypass Graft using Low Osmolar Contrast (ICD-10-PCS; principal; 2017-09-14 13:00)
PROC: B2111ZZ Fluoroscopy of Multiple Coronary Arteries using Low Osmolar Contrast (ICD-10-PCS; 2017-09-14 13:00)
DX: I13.0 Hypertensive heart and chronic kidney disease with heart failure and stage 1 through stage 4 chronic kidney disease, or unspecified chronic kidney disease (principal); I50.23 Acute on chronic systolic (congestive) heart failure; J18.9 Pneumonia, unspecified organism; J96.01 Acute respiratory failure with hypoxia; J44.0 Chronic obstructive pulmonary disease with (acute) lower respiratory infection; C90.00 Multiple myeloma not having achieved remission; N18.3 Chronic kidney disease, stage 3 (moderate); I25.10 Atherosclerotic heart disease of native coronary artery without angina pectoris; I08.0 Rheumatic disorders of both mitral and aortic valves; F41.9 Anxiety disorder, unspecified; F32.9 Major depressive disorder, single episode, unspecified; E03.9 Hypothyroidism, unspecified; E78.5 Hyperlipidemia, unspecified; Z95.5 Presence of coronary angioplasty implant and graft; Z95.1 Presence of aortocoronary bypass graft; Z95.0 Presence of cardiac pacemaker; Z85.46 Personal history of malignant neoplasm of prostate; Z85.528 Personal history of other malignant neoplasm of kidney

== ENCOUNTER 2017-09-29 10:55 | Outpatient (CLI) | payer MEDICARE ==
[~2017-09-29] VITALS: Ht 172.7 cm; Wt 75.9 kg
[2017-09-29 11:46] VITALS: BP 139/65; Ht 172.7 cm; Wt 75.9 kg
== END 2017-09-29 16:00 | disposition home or self-care (01) ==
LOC: D.OPS 10:55 → D.CT 13:00 → D.OPS 16:00
DX: I34.0 Nonrheumatic mitral (valve) insufficiency (principal); Z01.812 Encounter for preprocedural laboratory examination

== ENCOUNTER → 2017-10-22 09:21 | Outpatient (CLI) | payer MEDICARE ==
[2017-09-29 11:46] VITALS: BMI 25.4
--- NOTE | ~2017-10-22 | EC ---
PATIENT:SANTO RODRIGUEZ DATE OF SERVICE: 10/22/17 SEX: M MEDICAL RECORD: [id number] DATE OF : 41 LOCATION:D[facility] AGE OF PATIENT: 72 ADMISSION DATE: 10/22/17 REFERRING PHYSICIAN: INTERPRETING PHYSICIAN: TAVON PREAZA MD ECHOCARDIOGRAM REPORT ECHO CHARGES 4 ECHO COMPLETE Date: 10/22 CLINICAL DIAGNOSIS: SOB/HTN/MITRAL REGURGE HX OF CAD/CABG/PACER ECHOCARDIOGRAPHIC MEASUREMENTS (adult normal given) AC root (d.<3.7cm) 3.9 cm LV Septum d (<1.2 cm> 1.6 cm Valve Excursion 1.7 cm LV Septum (systole) 1.7 cm Left Atria (s.<4.0cm> 6.0 cm LVPW d(<1.2cm) 1.6 cm RV (d.<2.3cm) 4.1 cm LVPW (sytole) 1.8 cm LV diastole(<5.6CM) 6.6 cm MV E-F(>70mm/sec) cm LV systole 5.4 cm LVOT Diameter 1.5 cm MV exc.(>10mm) 2.0 cm Est.ejection fraction (50-75%) % DOPPLER: LVIT cm/sec A 86.0 cm/sec E 161 cm/sec LA cm/sec RVSP 53 mmHg LVOT 131 cm/sec AOP1/2T 473 m/s Asc. Ao 260 cm/sec RVOT 89 cm/sec RA cm/sec PA 112 cm/sec AV Gradient Peak 26.94mmHg AV Mean 14.43mmHg AV Area 1.2 cm MV Gradient Peak 12.17mmHg MV Mean 3.94 mmHg MV Area cm COMMENTS: Driveway Attendant: Matt LAM Mechanic Welder: 2 Dr. Lombardo TAPE# PACS Pericardial Effusion N DATE OF SERVICE: 10/22/2017 FINDINGS: 1. Left ventricular chamber size is mildly dilated. Left ventricular systolic function is preserved. Overall ejection fraction estimated at 50% to 55%. 2. Left atrium is markedly enlarged at 6.0 cm. Right atrium and right ventricular chamber sizes are as well moderate to severely dilated. 3. Valvular structures: Aortic valve demonstrates moderate calcific aortic stenosis, valve area calculates to 1.2 cm-squared with a gradient of 27 mm across the valve. The remaining valvular structures have normal structure and ECHOCARDIOGRAM REPORT [id number] SANTO RODRIGUEZ CAMACHO motion. 4. Doppler interrogation elsewise reveals mild aortic insufficiency, severe mitral regurgitation, severe tricuspid regurgitation, no other valvular insufficiency or stenosis. Pulmonary systolic pressure is elevated, estimated at 53 mmHg. 5. No evidence of pericardial effusion or left ventricular thrombus. TRANSINT:[id number] Voice Confirmation ID: [id number] DOCUMENT ID: [id number] TAVON PERAZA MD at 1710 CC: [id number] DICTATION DATE: 10/22/17 1359 FRINGE MAKER: 10/22/17 1424 REG [facility] [address] [place] [address]
[~2017-10-22 09:21] MED LIST changes: +CORDARONE200 MG PO; +HEMOCYTE PLUS C1 CAP PO; +HYDROCODONE-APA1 TAB PO; +K-DUR20 MEQ PO; +LASIX40 MG PO; +OXYBUTYNIN CHLOR5 MG PO; +ZOLOFT50 MG PO
== END | disposition home or self-care (01) ==
LOC: D.ECHO 09:21
DX: R06.02 Shortness of breath (principal); I10 Essential (primary) hypertension; I34.0 Nonrheumatic mitral (valve) insufficiency

== ENCOUNTER 2017-11-02 17:32 | Inpatient (IN) | payer MEDICARE, OTHER ==
[~2017-11-02] VITALS: Ht 172.7 cm; Wt 75.0 kg
[~2017-11-02 17:32] MED LIST changes: -CORDARONE200 MG PO; -HEMOCYTE PLUS C1 CAP PO; -HYDROCODONE-APA1 TAB PO; -K-DUR20 MEQ PO; -LASIX40 MG PO; -OXYBUTYNIN CHLOR5 MG PO; -ZOLOFT50 MG PO
[2017-11-02] MEDS ORDERED: ZOLOFT50 MG PO (17:47)
[2017-11-02] MEDS ORDERED: OXYBUTYNIN CHLOR5 MG PO (17:48)
[2017-11-02 18:28] LABS: BASOPHILS 0.1 % (0-2); EOSINOPHILS 1.7 % (0-7); HEMATOCRIT 28.6 % (42.0-54.0); IMMATURE GRANULOCYTES 0.1 % (0-5); LYMPHOCYTES 19.3 % (15-50); MCH 27.2 pg (26.0-34.0); MCHC 31.5 g/dL (31.0-37.0); MCV 86.4 fL (80.0-100.0); MEAN PLATELET VOLUME 10.2 fL (7.4-10.4); MONOCYTES 6.6 % (2-11); NEUTROPHILS 72.2 % (40-80); RBC 3.31 10x6/uL (4.20-6.10); RDW 16.6 % (11.5-14.5); WBC 8.7 10x3/uL (4.8-10.8)
[2017-11-02 18:39] LABS: PLATELET COUNT 156 10x3/uL (130-400)
[2017-11-02 18:43] LABS: APTT 30.2 SECONDS (22.8-39.4); INR 1.1 (0.85-1.17); PROTIME 13.8 SECONDS (11.6-15.0)
[2017-11-02 18:44] LABS: D-DIMER-QUANTITATIVE 0.53 ug/mLFEU (0.20-0.54)
[2017-11-02 18:48] LABS: ALBUMIN 3.6 g/dL (3.4-5.0); ALKALINE PHOSPHATASE 137 U/L (46-116); ALT (SGPT) 12 U/L (10-68); BILIRUBIN - TOTAL 0.36 mg/dL (0.2-1.3); CALC OSMOLALITY 287 mosm/kg (275-300); CALCIUM 9.3 mg/dL (8.5-10.1); CHLORIDE - SERUM 103 mmol/L (98-107); GLUCOSE 111 mg/dL (74-106); POTASSIUM - SERUM 3.6 mmol/L (3.5-5.1); PROTEIN - SERUM 7.9 g/dL (6.4-8.2); SODIUM 140 mmol/L (136-145); UREA NITROGEN 34 mg/dL (7-18); eGFR NON AFRICAN AMERICAN 35 mL/min (90-120)
[2017-11-02 19:01] LABS: MAGNESIUM - SERUM 2.3 mg/dL (1.8-2.4); PRO BNP 5487 pg/mL (0-125); TROPONIN-I < 0.017 ng/mL (0.000-0.060)
[2017-11-02 20:00] VITALS: BP 145/75
[2017-11-02 21:00] VITALS: BP 145/72
[2017-11-02 22:00] VITALS: BP 146/74
[2017-11-03] VITALS (18 sets, daily range): BP systolic 122–144; BP diastolic 53–67; Ht 172.7 cm; Wt 75.0 kg
[2017-11-03 01:06] LABS: CKMB 0.6 U/L (0.0-3.6); CREATINE KINASE 44 UL (21-232)
[2017-11-03 06:06] LABS: BASOPHILS 0.2 % (0-2); EOSINOPHILS 1.4 % (0-7); HEMATOCRIT 26.1 % (42.0-54.0); HEMOGLOBIN 8.2 g/dL (13.5-17.5); IMMATURE GRANULOCYTES 0.2 % (0-5); LYMPHOCYTES 13.3 % (15-50); MCH 27.1 pg (26.0-34.0); MCHC 31.4 g/dL (31.0-37.0); MCV 86.1 fL (80.0-100.0); MEAN PLATELET VOLUME 8.9 fL (7.4-10.4); NEUTROPHILS 80.9 % (40-80); PLATELET COUNT 142 10x3/uL (130-400); RBC 3.03 10x6/uL (4.20-6.10); RDW 16.6 % (11.5-14.5); WBC 8.9 10x3/uL (4.8-10.8)
[2017-11-03 07:07] LABS: CALC OSMOLALITY 289 mosm/kg (275-300); CALCIUM 8.7 mg/dL (8.5-10.1); CARBON DIOXIDE 28.7 mmol/L (21.0-32.0); CHLORIDE - SERUM 104 mmol/L (98-107); CKMB 0.8 U/L (0.0-3.6); CREATINE KINASE 39 UL (21-232); GLUCOSE 97 mg/dL (74-106); POTASSIUM - SERUM 3.4 mmol/L (3.5-5.1); SODIUM 142 mmol/L (136-145); UREA NITROGEN 32 mg/dL (7-18); eGFR NON AFRICAN AMERICAN 35 mL/min (90-120)
[2017-11-03 07:15] LABS: TROPONIN-I 0.164 ng/mL (0.000-0.060)
[2017-11-03 12:50] LABS: CKMB 0.8 U/L (0.0-3.6); CREATINE KINASE 43 UL (21-232)
[2017-11-03 12:53] LABS: TROPONIN-I 0.092 ng/mL (0.000-0.060)
[2017-11-04] VITALS: BP 111/50
[2017-11-04 04:00] VITALS: BP 150/90
[2017-11-04 09:06] VITALS: BP 135/69
[2017-11-04 13:26] VITALS: BP 120/58
[2017-11-04 17:31] VITALS: BP 149/63
[2017-11-04 21:05] VITALS: BP 148/59
[2017-11-05 01:36] VITALS: BP 147/61
[2017-11-05 06:09] VITALS: BP 102/60
[2017-11-05 06:33] LABS: BASOPHILS 0.3 % (0-2); EOSINOPHILS 2.3 % (0-7); IMMATURE GRANULOCYTES 0.3 % (0-5); LYMPHOCYTES 14.1 % (15-50); MCHC 31.4 g/dL (31.0-37.0); MCV 86.1 fL (80.0-100.0); MEAN PLATELET VOLUME 9.6 fL (7.4-10.4); MONOCYTES 6.4 % (2-11); NEUTROPHILS 76.6 % (40-80); RDW 16.1 % (11.5-14.5); WBC 7.1 10x3/uL (4.8-10.8)
[2017-11-05 06:44] LABS: ANION GAP 16.1 mmol/L (8-16); CALCIUM 9.1 mg/dL (8.5-10.1); CARBON DIOXIDE 27.4 mmol/L (21.0-32.0); CREATININE - SERUM 1.9 mg/dL (0.6-1.3); POTASSIUM - SERUM 3.5 mmol/L (3.5-5.1)
[2017-11-05 06:45] LABS: HEMATOCRIT 31.5 % (42.0-54.0); HEMOGLOBIN 9.9 g/dL (13.5-17.5); PLATELET COUNT 205 10x3/uL (130-400); RBC 3.66 10x6/uL (4.20-6.10)
[2017-11-05 09:08] VITALS: BP 127/58
[2017-11-05 12:38] VITALS: BP 106/60
[2017-11-05 16:46] VITALS: BP 126/60
[2017-11-05 20:41] VITALS: BP 133/83
[2017-11-06 00:31] VITALS: BP 100/64
[2017-11-06 06:04] VITALS: BP 144/62
[2017-11-06 06:49] LABS: BASOPHILS 0.1 % (0-2); EOSINOPHILS 3.1 % (0-7); HEMATOCRIT 32.1 % (42.0-54.0); HEMOGLOBIN 10.2 g/dL (13.5-17.5); IMMATURE GRANULOCYTES 0.4 % (0-5); LYMPHOCYTES 18.7 % (15-50); MCH 27.3 pg (26.0-34.0); MCHC 31.8 g/dL (31.0-37.0); MCV 86.1 fL (80.0-100.0); MEAN PLATELET VOLUME 9.6 fL (7.4-10.4); NEUTROPHILS 69.7 % (40-80); PLATELET COUNT 219 10x3/uL (130-400); RBC 3.73 10x6/uL (4.20-6.10); RDW 16.2 % (11.5-14.5); WBC 7.2 10x3/uL (4.8-10.8)
[2017-11-06 07:09] LABS: ANION GAP 16.7 mmol/L (8-16); CALCIUM 9.2 mg/dL (8.5-10.1); CARBON DIOXIDE 25.8 mmol/L (21.0-32.0); CREATININE - SERUM 1.9 mg/dL (0.6-1.3); POTASSIUM - SERUM 3.5 mmol/L (3.5-5.1)
[2017-11-06 07:53] VITALS: BP 140/63
[2017-11-06 11:06] VITALS: BP 127/59
[2017-11-06 16:14] VITALS: BP 123/67
[2017-11-06 20:35] VITALS: BP 135/59
[2017-11-07 00:21] VITALS: BP 136/70
[2017-11-07 05:07] VITALS: BP 142/69
[2017-11-07 06:05] LABS: BASOPHILS 0.3 % (0-2); HEMOGLOBIN 11.1 g/dL (13.5-17.5); IMMATURE GRANULOCYTES 0.5 % (0-5); LYMPHOCYTES 18.9 % (15-50); MCHC 32.6 g/dL (31.0-37.0); MCV 85.9 fL (80.0-100.0); MEAN PLATELET VOLUME 9.5 fL (7.4-10.4); MONOCYTES 6.9 % (2-11); NEUTROPHILS 69.4 % (40-80); PLATELET COUNT 217 10x3/uL (130-400); RBC 3.96 10x6/uL (4.20-6.10); RDW 16.1 % (11.5-14.5); WBC 7.5 10x3/uL (4.8-10.8)
[2017-11-07 06:27] LABS: ANION GAP 15.6 mmol/L (8-16); CALCIUM 9.6 mg/dL (8.5-10.1); CARBON DIOXIDE 26.8 mmol/L (21.0-32.0); CREATININE - SERUM 1.9 mg/dL (0.6-1.3); POTASSIUM - SERUM 3.4 mmol/L (3.5-5.1)
[2017-11-07 08:45] VITALS: BP 130/68
[2017-11-07] MEDS ORDERED: LASIX40 MG PO (10:12)
[2017-11-07] MEDS ORDERED: K-DUR20 MEQ PO (10:12)
== END 2017-11-07 14:27 | disposition home or self-care (01) | DRG 291 ==
LOC: D.ER 17:32 → D.EDHOLD 21:54 → D.M2 21:54
PROVIDERS: Family Medicine; Internal Medicine Nephrology
DX: I13.0 Hypertensive heart and chronic kidney disease with heart failure and stage 1 through stage 4 chronic kidney disease, or unspecified chronic kidney disease (principal); I50.33 Acute on chronic diastolic (congestive) heart failure; J96.01 Acute respiratory failure with hypoxia; N17.9 Acute kidney failure, unspecified; C90.00 Multiple myeloma not having achieved remission; N18.3 Chronic kidney disease, stage 3 (moderate); I34.0 Nonrheumatic mitral (valve) insufficiency; I25.10 Atherosclerotic heart disease of native coronary artery without angina pectoris; Z98.61 Coronary angioplasty status; D50.9 Iron deficiency anemia, unspecified

== ENCOUNTER 2017-11-13 11:00 | Inpatient (IN) | payer MEDICARE ==
[~2017-11-13] VITALS: Ht 172.7 cm; Wt 82.0 kg
--- NOTE | ~2017-11-13 | OP ---
PATIENT NAME: SANTO RODRIGUEZ MEDICAL RECORD: [id number] :41 LOCATION:D.[facility] D.CV02 ADMISSION DATE:11/16/17 SURGEON: COLIN FREEDMAN MD DATE OF OPERATION: 11/16/2017 SURGEON: Colin Freedman MD ASSISTANTS: 1. Nirmal Ruiz MD 2. CELIA Martell OPERATIONS PERFORMED: 1. Reentry sternotomy. 2. Mitral valve annuloplasty, 34-mm Physio ring. 3. Tricuspid valve annuloplasty, 30-mm ring. PREOPERATIVE DIAGNOSES: Mitral and tricuspid regurgitation, status post coronary bypass graft. POSTOPERATIVE DIAGNOSES: Mitral and tricuspid regurgitation, status post coronary bypass graft. ANESTHESIA: General endotracheal anesthesia. ESTIMATED BLOOD LOSS: Total cardiopulmonary bypass with Cell Saver retransfusion, 2 packed red blood cells, 1 platelets, and 2 FFP. COMPLICATIONS: None. SPECIMENS: None. CONDITION: Stable. DISPOSITION: CV ICU. OPERATIVE FINDINGS: 1. Transesophageal echocardiography confirmed severe mitral regurgitation with normal-appearing valve apparatus and severe tricuspid regurgitation with calcified aortic valve. Aortic valve area estimated at 1.2 cm-squared. 2. Moderate adhesions, but able to takedown the right ventricle at its site next to the sternum without heparinization. The right groin was opened and femoral vessels were exposed, but they were not cannulated. 3. The mitral valve had central regurgitation and normal anterior and posterior leaflet appearance without significant regurgitation or elongated chordee, and after placement of the annuloplasty ring, had very minimal central regurgitation. There was a slight amount of calcification in the anterior leaflet near the commissure. 4. Tricuspid valve had indwelling ventricular pacer lead through it and central regurgitation that was essentially reduced to none after the annuloplasty ring. 5. Coagulopathy after separation from cardiopulmonary bypass. 6. The left internal mammary artery graft was preserved and flow was occluded with a soft jaw bulldog clamp during the crossclamp period. Also the vein graft to the posterior descending artery was preserved and mobilized to allow access to right and left atrium. OPERATIVE REPORT [id number] SANTO RODRIGUEZ INDICATION: Mitral regurgitation, tricuspid regurgitation. OPERATIVE SUMMARY IN DETAIL: The patient was brought to the operative suite. General anesthesia was obtained. The patient was prepped and draped. The femoral artery and vein were dissected out and encircled with vessel loops. The old median sternotomy incision was incised. Subcutaneous tissue was divided by electrocautery. The sternal wires were unwound and held upward on either side while the oscillating sternal saw was used to divide the sternum. Under direct visualization, the internal sternal table was divided. Wires were removed. Carefully, the heart was dissected away. First, the innominate vein was dissected free to prevent tension, then the aorta was dissected free to allow cannulation, then the right atrium, and then eventually around to the left with dense adhesions at the apex. The internal mammary was dissected free enough to allow the heart to rotate to the left, but not freely from the chest wall. Good Doppler signal was noted. Heparin was given. The aorta was cannulated. Bicaval cannulation was performed. The patient was placed on cardiopulmonary bypass. A soft jaw bulldog was used to occlude flow in the internal mammary. Retrograde cardioplegia cannula was inserted. Antegrade cardioplegia cannula and vent were inserted. The patient was cooled. Crossclamp was placed. Cardioplegia was given antegrade and retrograde. Retrograde cannula was removed when the right atrium was opened, but direct retrograde cardioplegia was given at 15-minute intervals. The interatrial groove was dissected out. The atrium was opened. The valve was visualized with findings as above, sized appropriately. Interrupted suture was placed through the annulus and then through the sewing ring, which carefully lowered into place with only small amount of central regurgitation and then the atriotomy was closed over the vent. The caval tapes were used and the right atrium was opened. Tricuspid valve was visualized, sized appropriately, and sutures were placed, taking care to spare the conduction tissue. Ring carefully lowered into place and the valve was checked for leakage. The atriotomy was closed. Tapes were removed. The left atrium was continuously closed. Then, with the patient in steep Trendelenburg position, transesophageal echocardiography was used for aiding in deairing and crossclamp was removed. The aortic root was deaired. The vent was removed. The left ventricular apex was deaired. The patient resumed spontaneous rhythm as he had an indwelling pacemaker. At that point, the patient was weaned from cardiopulmonary bypass once stable. The patient was decannulated. Cannula sites were oversewn. Protamine was given. Thorough irrigation was undertaken. Again, good Doppler signal was noted in the internal mammary and in the vein graft. The drains were placed in the chest and one in the right pleural cavity. Pericardium was approximated over the aorta. The sternum was closed with wires. The patient was stable and chest was closed. Fascia was closed. Subcutaneous tissue was closed. Skin was closed. Dermabond was placed. Needle and sponge counts were reported as correct. The patient was taken to the ICU in stable condition. TRANSINT:[id number] Voice Confirmation ID: [id number] DOCUMENT ID: [id number] OPERATIVE REPORT [id number] SANTO RODRIGUEZ DANIEL W MD at 0725 CC: MARLYS MCLAUGHLIN M.D. [id number] DICTATION DATE: 11/16/17 1622 MEDIA COORDINATOR: 11/16/17 1833 ADM IN [place] [address] [place] [address]
--- NOTE | ~2017-11-13 | TEE ---
PATIENT:SANTO RODRIGUEZ MEDICAL RECORD: [id number] LOCATION:[place] [address] AGE OF PATIENT: 72 ADMISSION DATE: 11/16/17 SEX: M REFERRING PHYSICIAN: INTERPRETING PHYSICIAN: TAVON PERAZA MD TRANSESOPHAGEAL ECHOCARDIOGRAM Date: 11/16/17 [place] CHARGE Y INDICATIONS: CABG/MVR/POSSIBLE TVR PREMEDICATIONS: PATIENT'S RESPONSE PROCEDURE DOPPLER MEASUREMENTS: LVIT LA PA RA LVOT RVOT Asc. Ao AV Gradient Peak AV Mean AV Area MV Gradient Peak MV Mean MV Area INTERPRETATION: LVd: 6.4 cm LVs: 4.6 cm Doppler: 2-D: COLOR FLOW DOPPLER NORMAL SALINE STUDY: MISCELLANOUS: DIAGNOSIS: PLAN: Certified Tumor Registrar:Matt Lombardo Gas Pumper: Latisha WELLS COMMENTS: DATE OF SERVICE: PROCEDURE: Transesophageal echo evaluation of valvular structures during bypass surgery and mitral valve replacement. FINDINGS: 1. Left ventricular chamber size is within normal limits. Left ventricular systolic function is mildly reduced, overall ejection fraction 40% to 45%. 2. Left atrium is enlarged. Right atrium and right ventricle chamber sizes as TRANSESOPHAGEAL ECHOCARDIOGRAM REPORT [id number] SANTO RODRIGUEZ well mildly dilated. 3. Valvular structures have normal structure and motion. 4. Doppler interrogation reveals severe mitral regurgitation, moderate to severe tricuspid regurgitation and mild aortic insufficiency. No other valvular insufficiency or stenosis. 5. No evidence of pericardial effusion or left ventricular thrombus. TRANSINT:[id number] Voice Confirmation ID: [id number] DOCUMENT ID: [id number] at 1230 CC: [id number] DICTATION DATE: 11/16/17 1158 PHYSICIAN IN PRIVATE PRACTICE: 11/16/17 1222 ADM IN [facility] [address] [place] [address]
--- NOTE | ~2017-11-13 | HP ---
PATIENT: SANTO RODRIGUEZ MEDICAL RECORD: [id number] ACCOUNT: [id number] LOCATION:[facility] : 41 ADMISSION DATE: 11/13/17 HISTORY AND PHYSICAL EXAMINATION NameSANTO RODRIGUEZ (72yo, M) ID# [id number]. Date/Time10/27/2017 11:[id number]//1944[facility] Dept.NPP_[place] [facility] ClinicProviderVINNY FREEDMAN MDInsuranceMed Primary: [facility] (MEDICARE REPLACEMENT/ADVANTAGE - PPO) Insurance # : [id number] Policy/Group # : [id number] Employer Name : RETIRED Prescription: CMX - Member is eligible. Prescription: CMX - Member is eligible. Chief Complaint Followup: Coronary arteriosclerosis in [place] artery Following severe mitral regurg. S/P CABG 09/16/11 S/P PPM 09/22/11 1 MONTH F/U WITH TEST RESULTS Patient's Care Team Other: MARLYS MCLAUGHLIN MD: [address] [place] [phone], , Patient's Pharmacies [id number] ([facility]): [address] [facility] [address], , Vitals BP:122/68 sitting R arm 10/27/2017 12:18 pmHR:668/MURM 10/27/2017 12:19 pmHt:5 ft 8 in 10/27/2017 12:10 pmWt:167 lbs 10/27/2017 12:19 pmBMI:25.4 10/27/2017 12:19 pmAllergies Reviewed Allergies ERYTHROMYCIN BASEMedications Reviewed Medications allopurinol 300 mg vsnqki54/27/18 filledCaremarkamLODIPine 10 mg /19/18 filledCaremarkamlodipine 10 mg-atorvastatin 20 mg ubgbhb08/19/11 filledCaremarkamlodipine 10 mg-atorvastatin 40 mg /12/12 filledCaremarkBystolic 10 mg zswpre56/18/18 filledCaremarkclopidogrel 75 mg uboyrr80/08/18 filledCaremarkDULoxetine 30 mg capsule,delayed mrjptyw18/30/18 filledCaremarkesomeprazole magnesium 40 mg capsule,delayed lnywvmw37/18/18 filledCaremarkfluorouracil 5 % topical cream02/10/17 filledCaremarkfurosemide 20 mg stazmx84/30/18 filledCaremarkgemfibrozil 600 mg wdjent90/04/18 filledCaremarklevoFLOXacin 500 mg xuksvi36/07/12 filledCaremarklevothyroxine 75 mcg /09/18 filledCaremarklisinopril 40 mg /12/12 filledCaremarkMucinex DM 30 mg-600 mg tablet,extended release 12 hr TAKE 2 TABLETS BY MOUTH TWICE A DAY04/17/17 filledsurescriptsNitrostat 0.4 mg sublingual /21/12 filledCaremarkofloxacin 0.3 % eye drops09/22/16 filledCaremarkoxybutynin chloride 5 mg tablet start filledShannon Jonespotassium chloride ER 20 mEq tablet,extended release(part/cryst)09/11/11 filledCaremarkpredniSONE 5 mg qucvtu37/07/18 filledCaremarksertraline 50 mg gziedh49/18/18 filledCaremarksodium chloride 5 % eye ointment APPLY 1/2" RIBBON TO AFFECTED EYE(S) TWICE DAILY DIRECTED AFTER CLEANING LIDS., start filledSarah JonesProblems Reviewed Problems HISTORY AND PHYSICAL [id number] SANTO RODRIGUEZ Hyperlipidemia Depressive disorder Essential hypertension Coronary arteriosclerosis in [place] artery Heart block - third degree Short of breath dressing/undressing Family History Reviewed Family History Father- Heart disease ( age: 89)Brother- Myocardial infarction ( age: 58) - previously recorded as Heart Attack ([place])Mother- Heart disease ( age: 68)Social History Reviewed Social History Cardiology Family history of heart disease?: Y Smoking Status: Never smoker High blood pressure: Y Alcohol intake: None Diet: Regular Marital status: Surgical History Reviewed Surgical History Other - 09/22/2011 - PPM CABG - 09/16/2011 Other - 2007 - prostate Other - 2006 - PTCA/stent Past Medical History Reviewed Past Medical History Cancer: Y Chest Pain: Y Circulation Problems: Y Depression: Y Dizzy Spells: Y Eye Problems: Y Heart Disease: Y High Blood Pressure: Y Prostate Problems: Y Shortness of Breath: Y Documents for Discussion N/A Screening None recorded. HPI Dyspnea Reported by patient. Quality: dyspnea; pressure Severity: moderate Onset/Timing: daily Context: with activity; walking on level ground; walking up inclines; walking up strairs Alleviating Factors: rest Aggravating Factors: activity severe mitral regurgitation, now echo with worsening tricuspid regurgitation. Early fatigue after about 3 hours, by noon daily. Denies peripheral edema, HISTORY AND PHYSICAL [id number] SANTO RODRIGUEZ palpitations, syncope. reports occasional chest pressure but patient denies it. On Plavix ROS Additionally reports: no change from review of systems in the chart, specifically previous medical history as noted ROS as noted in the HPI Physical Exam Patient is a 72-year-old male. Constitutional: General Appearance well nourished and developed and healthy-appearing. Level of Distress NAD. Ambulation ambulating normally. Cardiovascular: Apical Impulse displaced. Heart Auscultation RRR and murmur. Edema no edema. Lungs: Repiratory Effort no dyspnea. Percussion no hyperresonance or dullness or flatness. Auscultation no wheezing, rhonchi, or rales / crackles and breathing sounds normal, good air movement, and CTA except as noted. Abdomen: Bowl Sounds normal. Inspection and Palpation soft, non-distende d, and no tenderness. Liver non-tender and no hepatomegaly. Spleen non-tender and no splenomegaly. Musculoskeletal System: Gait And Stance normal gait and stance. Digits and Nails normal nails and no cyanosis. Neurologic: Cranial Nerves grossly intact. Reflexes DTRs 2+ bilaterally throughout. Sensation grossly intact. Lymph Nodes: Lymph Nodes no cervical LAD or supraclavicular LAD. Eyes: Lids and Conjunctivae no discharge or pallor and non-injected. Pupils PERRLA. Cornea grossly intact. EOM EOMI. Lens clear. Sclerae non-icteric. Neck: Neck no masses, enlarged lymph nodes, or carotid bruits and supple and trachea midline. Thyroid no enlargement or nodules and non-tender. Skin: Inspection and Palpation no rash, lesions, ulcers, jaundice, or abnormal nevi. Assessment / Plan 1. Coronary arteriosclerosis in [place] artery I25.10: Atherosclerotic heart disease of [place] coronary artery without angina pectoris 2. Mitral valve regurgitation I34.0: Nonrheumatic mitral (valve) insufficiency HEART VALVE DISEASE: CARE INSTRUCTIONS MITRAL VALVE REGURGITATION: CARE INSTRUCTIONS 3. Tricuspid incompetence, non-rheumatic I36.1: Nonrheumatic tricuspid (valve) insufficiency Patient Instructions stop Plavix 5 days prior to surgery Discussion Notes CT scan shows adherence of the right ventricle to the inner sternal table. The HISTORY AND PHYSICAL [id number] SANTO RODRIGUEZ patient also has a patent left internal mammary artery that is an excellent conduit. Patent graft to the right. Stent open with moderate restenosis of the circumflex The patient was worried because on the last echo report from October [address] Thorpe he has developed significant tricuspid regurgitation along with severe mitral regurgitation, and remains symptomatic to worsening fatigue. We discussed the option of referral for right thoracotomy as the media n sternotomy will also require femoral access due to adhesions of the right ventricle to the sternum, the patient wishes to remain in [place] and have surgery by Dr. Ruiz and myself. We discussed the valve choices, possibility of a bypass to the circumflex, possibility of injury to the ventricle, patent WOODARD, patent saphenous vein graft. Additional risks benefits and alternatives discussed and he gives consent. VINNY FREEDMAN MD at 1006 CC: [id number] DICTATION DATE: 10/27/17 1140 FOLDING MACHINE TENDER: PAUL 10/30/17 1152 PRE IN [facility] [address] [place] [address]
[~2017-11-13 11:00] MED LIST changes: +K-DUR20 MEQ PO; +LASIX40 MG PO; +OXYBUTYNIN CHLOR5 MG PO; +ZOLOFT50 MG PO
[2017-11-13 13:59] LABS: BASOPHILS 0.4 % (0-2); EOSINOPHILS 2.7 % (0-7); HEMATOCRIT 35.5 % (42.0-54.0); HEMOGLOBIN 11.4 g/dL (13.5-17.5); IMMATURE GRANULOCYTES 0.6 % (0-5); LYMPHOCYTES 23.2 % (15-50); MCH 27.8 pg (26.0-34.0); MCHC 32.1 g/dL (31.0-37.0); MCV 86.6 fL (80.0-100.0); MEAN PLATELET VOLUME 9.3 fL (7.4-10.4); MONOCYTES 7.4 % (2-11); NEUTROPHILS 65.7 % (40-80); PLATELET COUNT 257 10x3/uL (130-400); RDW 16.2 % (11.5-14.5); WBC 8.1 10x3/uL (4.8-10.8)
[2017-11-13 14:01] LABS: APPEARANCE CLEAR (CLEAR); BILIRUBIN NEGATIVE (NEGATIVE); COLOR YELLOW (YELLOW); GLUCOSE NEGATIVE (NEGATIVE); KETONE NEGATIVE (NEGATIVE); NITRITE NEGATIVE (NEGATIVE); PROTEIN NEGATIVE (NEGATIVE); SPECIFIC GRAVITY 1.015 (1.005-1.020); UROBILINOGEN NORMAL (NORMAL)
[2017-11-13 14:08] LABS: APTT 28.3 SECONDS (22.8-39.4); INR 1.12 (0.85-1.17); PLT FUNCT.(P2Y12) PLAVIX 138 PRU (194-418)
[2017-11-13 14:48] LABS: ALBUMIN 3.8 g/dL (3.4-5.0); ANION GAP 14.6 mmol/L (8-16); BILIRUBIN - TOTAL 0.22 mg/dL (0.2-1.3); CALCIUM 9.1 mg/dL (8.5-10.1); CARBON DIOXIDE 28.2 mmol/L (21.0-32.0); CREATININE - SERUM 1.7 mg/dL (0.6-1.3); PHOSPHOROUS 4.1 mg/dL (2.5-4.9); POTASSIUM - SERUM 3.8 mmol/L (3.5-5.1); PROTEIN - SERUM 8.1 g/dL (6.4-8.2); T4 THYROXIN - FREE 1.19 ng/dL (0.76-1.46); THYROID STIMULATING HORMONE 0.18 uIU/mL (0.36-3.74); URIC ACID 5.9 mg/dL (2.6-7.2)
[2017-11-13 23:30] VITALS: BP 137/66
[2017-11-16] VITALS (35 sets, daily range): BP systolic 97–142; BP diastolic 35–80; BMI 24.8; BMI 24.6
[2017-11-16 14:22] LABS: RBC 2.44 10x6/uL (4.20-6.10)
[2017-11-16 14:24] LABS: HEMATOCRIT 21.3 % (42.0-54.0); MCH 27.9 pg (26.0-34.0); MCHC 31.9 g/dL (31.0-37.0); MCV 87.3 fL (80.0-100.0); MEAN PLATELET VOLUME 9.6 fL (7.4-10.4); RDW 15.9 % (11.5-14.5)
[2017-11-16 14:27] LABS: HEMOGLOBIN 6.8 g/dL (13.5-17.5)
[2017-11-16 14:30] LABS: INR 1.51 (0.85-1.17); PROTIME 17.7 SECONDS (11.6-15.0)
[2017-11-16 14:33] LABS: ANION GAP 15.9 mmol/L (8-16); CALCIUM 7.8 mg/dL (8.5-10.1); CREATININE - SERUM 1.6 mg/dL (0.6-1.3); POTASSIUM - SERUM 3.9 mmol/L (3.5-5.1)
[2017-11-16 17:25] LABS: INR 1.36 (0.85-1.17); PROTIME 16.3 SECONDS (11.6-15.0)
[2017-11-17] VITALS (45 sets, daily range): BP systolic 117–144; BP diastolic 45–86; Ht 172.7 cm; Wt 82.0 kg
[2017-11-17 06:31] LABS: MCH 27.7 pg (26.0-34.0); MCHC 32.3 g/dL (31.0-37.0); MCV 85.8 fL (80.0-100.0); MEAN PLATELET VOLUME 9.8 fL (7.4-10.4); RDW 15.9 % (11.5-14.5)
[2017-11-17 06:45] LABS: HEMOGLOBIN 8.4 g/dL (13.5-17.5); PLATELET COUNT 98 10x3/uL (130-400); RBC 3.03 10x6/uL (4.20-6.10); WBC 10.4 10x3/uL (4.8-10.8)
[2017-11-17 06:54] LABS: ALBUMIN 2.6 g/dL (3.4-5.0); ANION GAP 13.6 mmol/L (8-16); BILIRUBIN - TOTAL 0.5 mg/dL (0.2-1.3); CALCIUM 7.8 mg/dL (8.5-10.1); CARBON DIOXIDE 27.4 mmol/L (21.0-32.0); CREATININE - SERUM 1.9 mg/dL (0.6-1.3); PROTEIN - SERUM 5.5 g/dL (6.4-8.2)
[2017-11-17 07:34] LABS: PLATELET ESTIMATE DECREASED
[2017-11-18] VITALS (21 sets, daily range): BP systolic 105–147; BP diastolic 49–67
[2017-11-18 06:56] LABS: HEMATOCRIT 21.1 % (42.0-54.0); MCH 28.5 pg (26.0-34.0); MCHC 33.2 g/dL (31.0-37.0); MCV 85.8 fL (80.0-100.0); MEAN PLATELET VOLUME 10.3 fL (7.4-10.4); RBC 2.46 10x6/uL (4.20-6.10); RDW 16.2 % (11.5-14.5); WBC 8.8 10x3/uL (4.8-10.8)
[2017-11-18 07:33] LABS: ALBUMIN 2.2 g/dL (3.4-5.0); BILIRUBIN - TOTAL 0.34 mg/dL (0.2-1.3); CALCIUM 7.7 mg/dL (8.5-10.1); CARBON DIOXIDE 29.2 mmol/L (21.0-32.0); CREATININE - SERUM 1.5 mg/dL (0.6-1.3); PROTEIN - SERUM 5.4 g/dL (6.4-8.2)
[2017-11-18 07:37] LABS: ANION GAP 9.1 mmol/L (8-16); POTASSIUM - SERUM 3.3 mmol/L (3.5-5.1)
[2017-11-18 11:14] LABS: HEMATOCRIT 28.3 % (42.0-54.0); HEMOGLOBIN 9.3 g/dL (13.5-17.5); MCH 27.5 pg (26.0-34.0); MCHC 32.9 g/dL (31.0-37.0); MEAN PLATELET VOLUME 10.7 fL (7.4-10.4); RBC 3.38 10x6/uL (4.20-6.10); RDW 17.3 % (11.5-14.5); WBC 11.4 10x3/uL (4.8-10.8)
[2017-11-18 11:15] LABS: MCV 83.7 fL (80.0-100.0)
[2017-11-19] VITALS (27 sets, daily range): BP systolic 102–151; BP diastolic 41–80
[2017-11-19 06:25] LABS: HEMOGLOBIN 8.5 g/dL (13.5-17.5); MCH 27.2 pg (26.0-34.0); MCHC 32.7 g/dL (31.0-37.0); MCV 83.3 fL (80.0-100.0); MEAN PLATELET VOLUME 9.8 fL (7.4-10.4); RBC 3.12 10x6/uL (4.20-6.10); RDW 18.3 % (11.5-14.5); WBC 11.4 10x3/uL (4.8-10.8)
[2017-11-19 06:51] LABS: ALBUMIN 2.3 g/dL (3.4-5.0); ANION GAP 11.9 mmol/L (8-16); BILIRUBIN - TOTAL 0.42 mg/dL (0.2-1.3); CALCIUM 8.3 mg/dL (8.5-10.1); CARBON DIOXIDE 27.9 mmol/L (21.0-32.0); CREATININE - SERUM 1.5 mg/dL (0.6-1.3); POTASSIUM - SERUM 3.8 mmol/L (3.5-5.1)
[2017-11-20] VITALS (24 sets, daily range): BP systolic 116–156; BP diastolic 47–90
[2017-11-20 07:28] LABS: HEMATOCRIT 26.2 % (42.0-54.0); HEMOGLOBIN 8.5 g/dL (13.5-17.5); MCH 27.6 pg (26.0-34.0); MCHC 32.4 g/dL (31.0-37.0); MCV 85.1 fL (80.0-100.0); MEAN PLATELET VOLUME 9.7 fL (7.4-10.4); RBC 3.08 10x6/uL (4.20-6.10); RDW 18.5 % (11.5-14.5); WBC 9.3 10x3/uL (4.8-10.8)
[2017-11-20 08:01] LABS: ALBUMIN 2.4 g/dL (3.4-5.0); ANION GAP 8.9 mmol/L (8-16); BILIRUBIN - TOTAL 0.39 mg/dL (0.2-1.3); CALCIUM 8.7 mg/dL (8.5-10.1); CARBON DIOXIDE 29.7 mmol/L (21.0-32.0); CREATININE - SERUM 1.5 mg/dL (0.6-1.3); POTASSIUM - SERUM 3.6 mmol/L (3.5-5.1); PROTEIN - SERUM 6.1 g/dL (6.4-8.2)
[2017-11-21] VITALS (24 sets, daily range): BP systolic 123–150; BP diastolic 44–74
[2017-11-21 06:07] LABS: HEMOGLOBIN 8.6 g/dL (13.5-17.5); MCH 27.2 pg (26.0-34.0); MCHC 31.9 g/dL (31.0-37.0); MCV 85.4 fL (80.0-100.0); MEAN PLATELET VOLUME 10.1 fL (7.4-10.4); RBC 3.16 10x6/uL (4.20-6.10); RDW 18.1 % (11.5-14.5); WBC 9.4 10x3/uL (4.8-10.8)
[2017-11-21 06:42] LABS: ALBUMIN 2.5 g/dL (3.4-5.0); ANION GAP 10.9 mmol/L (8-16); BILIRUBIN - TOTAL 0.43 mg/dL (0.2-1.3); CALCIUM 8.9 mg/dL (8.5-10.1); CARBON DIOXIDE 29.9 mmol/L (21.0-32.0); CREATININE - SERUM 1.5 mg/dL (0.6-1.3); POTASSIUM - SERUM 3.8 mmol/L (3.5-5.1); PROTEIN - SERUM 6.5 g/dL (6.4-8.2)
[2017-11-22] VITALS (25 sets, daily range): BP systolic 114–154; BP diastolic 51–74
[2017-11-22 06:13] LABS: HEMATOCRIT 26.2 % (42.0-54.0); HEMOGLOBIN 8.5 g/dL (13.5-17.5); MCH 27.7 pg (26.0-34.0); MCHC 32.4 g/dL (31.0-37.0); MCV 85.3 fL (80.0-100.0); MEAN PLATELET VOLUME 10.2 fL (7.4-10.4); RBC 3.07 10x6/uL (4.20-6.10); RDW 18.1 % (11.5-14.5); WBC 8.9 10x3/uL (4.8-10.8)
[2017-11-22 06:32] LABS: CALCIUM 8.9 mg/dL (8.5-10.1); CARBON DIOXIDE 28.8 mmol/L (21.0-32.0); CREATININE - SERUM 1.3 mg/dL (0.6-1.3); POTASSIUM - SERUM 3.8 mmol/L (3.5-5.1)
[2017-11-23] VITALS (11 sets, daily range): BP systolic 127–150; BP diastolic 58–87
[2017-11-23 06:10] LABS: HEMOGLOBIN 8.9 g/dL (13.5-17.5); MCH 27.2 pg (26.0-34.0); MCHC 31.8 g/dL (31.0-37.0); MCV 85.6 fL (80.0-100.0); MEAN PLATELET VOLUME 10.3 fL (7.4-10.4); RBC 3.27 10x6/uL (4.20-6.10); WBC 10.2 10x3/uL (4.8-10.8)
[2017-11-23 07:02] LABS: ANION GAP 10.1 mmol/L (8-16); CARBON DIOXIDE 30.2 mmol/L (21.0-32.0); CREATININE - SERUM 1.5 mg/dL (0.6-1.3); POTASSIUM - SERUM 3.3 mmol/L (3.5-5.1)
[2017-11-23] MEDS ORDERED: CORDARONE200 MG PO (10:06)
[2017-11-23] MEDS ORDERED: HEMOCYTE PLUS C1 CAP PO (10:06)
[2017-11-23] MEDS ORDERED: K-DUR20 MEQ PO (10:10)
[2017-11-23] MEDS ORDERED: HYDROCODONE-APA1 TAB PO (10:26)
== END 2017-11-23 10:50 | disposition home or self-care (01) | DRG 219 ==
LOC: D.SDCHOLD 11:00 → D.CVICU 11-16 05:10 → D.SDCHOLD 11-16 05:10 → D.CVICU 11-16 09:26 → D.SDCHOLD 11-16 13:00 → D.CVICU 11-23 10:50
PROVIDERS: Internal Medicine Cardiovascular Disease; Thoracic Surgery (Cardiothoracic Vascular Surgery)
PROC: 5A1221Z Performance of Cardiac Output, Continuous (ICD-10-PCS; 2017-11-16)
PROC: 02UG0JZ Supplement Mitral Valve with Synthetic Substitute, Open Approach (ICD-10-PCS; principal; 2017-11-16 07:30)
PROC: 02UJ0JZ Supplement Tricuspid Valve with Synthetic Substitute, Open Approach (ICD-10-PCS; 2017-11-16 07:30)
DX: I25.10 Atherosclerotic heart disease of native coronary artery without angina pectoris (principal); J96.00 Acute respiratory failure, unspecified whether with hypoxia or hypercapnia; I13.0 Hypertensive heart and chronic kidney disease with heart failure and stage 1 through stage 4 chronic kidney disease, or unspecified chronic kidney disease; I50.32 Chronic diastolic (congestive) heart failure; N17.9 Acute kidney failure, unspecified; D62 Acute posthemorrhagic anemia; I34.0 Nonrheumatic mitral (valve) insufficiency; I36.1 Nonrheumatic tricuspid (valve) insufficiency; N18.3 Chronic kidney disease, stage 3 (moderate); D50.9 Iron deficiency anemia, unspecified; J44.9 Chronic obstructive pulmonary disease, unspecified; E78.5 Hyperlipidemia, unspecified; Z95.1 Presence of aortocoronary bypass graft; F32.9 Major depressive disorder, single episode, unspecified; Z95.0 Presence of cardiac pacemaker

== ENCOUNTER → 2017-12-14 10:34 | Outpatient (CLI) | payer MEDICARE ==
[2017-11-17 14:58] VITALS: BMI 27.8
[~2017-12-14 10:34] MED LIST changes: +CORDARONE200 MG PO; +HEMOCYTE PLUS C1 CAP PO; +HYDROCODONE-APA1 TAB PO
[2017-12-14 10:59] LABS: HEMATOCRIT 34.6 % (42.0-54.0); MCH 27.5 pg (26.0-34.0); MCHC 31.8 g/dL (31.0-37.0); MCV 86.5 fL (80.0-100.0); WBC 6.9 10x3/uL (4.8-10.8)
[2017-12-14 11:16] LABS: ALBUMIN 3.4 g/dL (3.4-5.0); ANION GAP 14.1 mmol/L (8-16); BILIRUBIN - TOTAL 0.28 mg/dL (0.2-1.3); CALCIUM 9.4 mg/dL (8.5-10.1); CARBON DIOXIDE 28.8 mmol/L (21.0-32.0); CREATININE - SERUM 2.1 mg/dL (0.6-1.3); POTASSIUM - SERUM 3.9 mmol/L (3.5-5.1)
== END | disposition home or self-care (01) ==
LOC: D.RAD 08:00
PROVIDERS: Internal Medicine Cardiovascular Disease
DX: J91.8 Pleural effusion in other conditions classified elsewhere (principal); D64.9 Anemia, unspecified

== ENCOUNTER 2018-02-15 12:33 | Inpatient (IN) | payer MEDICARE ==
[~2018-02-15] VITALS: Ht 172.7 cm; Wt 90.0 kg
--- NOTE | ~2018-02-15 | EC ---
PATIENT:SANTO RODRIGUEZ DATE OF SERVICE: 02/15/18 SEX: M MEDICAL RECORD: [id number] DATE OF : 41 LOCATION:[facility] AGE OF PATIENT: 72 ADMISSION DATE: 02/16/18 REFERRING PHYSICIAN: INTERPRETING PHYSICIAN: CHAS LAWS MD ECHOCARDIOGRAM REPORT ECHO CHARGES 4 ECHO COMPLETE Date: 02/27/18 CLINICAL DIAGNOSIS: CHF ECHOCARDIOGRAPHIC MEASUREMENTS (adult normal given) AC root (d.<3.7cm) 3.0 cm LV Septum d (<1.2 cm> 1.4 cm Valve Excursion 1.2 cm LV Septum (systole) 1.6 cm Left Atria (s.<4.0cm> 4.2 cm LVPW d(<1.2cm) 1.5 cm RV (d.<2.3cm) 3.8 cm LVPW (sytole) 1.8 cm LV diastole(<5.6CM) 5.6 cm MV E-F(>70mm/sec) cm LV systole 4.6 cm LVOT Diameter 1.9 cm MV exc.(>10mm) cm Est.ejection fraction (50-75%) % DOPPLER: LVIT cm/sec A 52 cm/sec E 117 cm/sec LA cm/sec RVSP 39.5 mmHg LVOT 107 cm/sec AOP1/2T 385.0m/s Asc. Ao 258 cm/sec RVOT 86 cm/sec RA cm/sec PA 106 cm/sec AV Gradient Peak 26.5 mmHg AV Mean 18.0 mmHg AV Area 1.5 cm MV Gradient Peak 9.8 mmHg MV Mean 2.7 mmHg MV Area cm COMMENTS: Retention Representative: Joe BAEZ Marksmanship Instructor: 4 Dr. Laws TAPE# PACS Pericardial Effusion N DATE OF SERVICE: PROCEDURE: Transthoracic echocardiogram. FINDINGS: 1. Left ventricle does show regional wall motion abnormality. There is anterior septal hypokinesis, ejection fraction of 40%. There is left ventricular hypertrophy. Inflow characteristics show a slight restrictive inflow or elevations of left ventricular end-diastolic pressures. 2. Left atrium is mildly dilated. ECHOCARDIOGRAM REPORT [id number] SANTO RODRIGUEZ 3. The mitral valve shows thickening along the mitral valve annulus. Cannot rule out mitral ring versus possibly a significant mitral annular calcification. There is associated severe mitral regurgitation. 4. Tricuspid valve is shown to have mild tricuspid regurgitation. RVSP is moderately elevated at 40 to 50 mmHg. 5. The right ventricle is dilated and mildly hypokinetic. 6. The right atrium was poorly visualized, but appears to have normal size. 7. The aortic valve is thickened and sclerotic. There is a trace aortic insufficiency; however, there does not appear to be any significant aortic stenosis. CONCLUSIONS: In comparison, the patient still has significant mitral regurgitation. The right ventricular systolic pressures demonstrated today are less than the previously demonstrated right ventricular systolic pressures. TRANSINT:[id number] Voice Confirmation ID: [id number] DOCUMENT ID: [id number] CHAS LAWS MD at 0916 CC: [id number] DICTATION DATE: 02/28/18950 INLETTER: 02/28/18 1019 DIS IN 03/10/18 [facility] [address] [place] [address]
--- NOTE | ~2018-02-15 | MORECARE ---
CASE MANAGEMENT DISCHARGE SUMMARY PATIENT: SANTO RODRIGUEZ UNIT: [id number] ADM DATE: 02/15/18 AGE: 72 : 41 SEX: M ROOM/BED: D.2140 AUTHOR: NAZANIN LR PHYSICIAN: REFERRING PHYSICIAN: MARLYS MCLAUGHLIN M.D. DATE OF SERVICE: 02/18/18 Discharge Plan Patient Name: SANTO RODRIGUEZ Facility: [facility]:[place] : 1945 Planned Disposition: Home Anticipated Discharge Date: 02/20/18 Discharge Date: Expected LOS: 5 Initial Reviewer: [id number] Initial Review Date: 02/16/2018 Generated: 02/18/18 6:06 pm Comments DCP- Discharge Planning Updated by [email or web address]: Aayush Montgomery on 02/18/18 4:[address] Patient Name: SANTO RODRIGUEZ Admission Status: Elective Accout number: [id number] Admission Date: 02-15-2018 : 1945 Admission Diagnosis:PNEUMONIA, UNSPECIFIED ORGANISM Attending: MARLYS MCLAUGHLIN Current LOS: 3 Anticipated DC Date: 02-20-2018 Planned Disposition: Home Primary Insurance: [facility] MEDICARE SOLUTIONS Discharge Planning Comments: CM MET WITH PT AND SPOUSE IN ROOM TO DISCUSS DISCHARGE PLANNING AND NEEDS. SANTO RODRIGUEZ provided verbal consent to discuss current and ongoing needs with/in the presence of: SPOUSE, ÁLVARO. PT REPORTS LIVING AT HOME INDEPENDENTLY WITH SPOUSE. PT HAS CANE, CPAP, WALKER AND WHEELCHAIR WITH NO MEDICAL EQUIPMENT PROVIDER PREFERENCE. PT DOES NOT USE THE WALKER AND WHEELCHAIR CURRENTLY; PT HAS HAD CPAP FOR 22 YEARS AND WOULD LIKE TO KNOW HOW TO OBTAIN SUPPLIES FOR IT. PT'S SPOUSE REPORTS HAVING A FLATCAR WHACKER CALLING THE HOME TO ARRANGE THE SUPPLIES IF NEEDED BUT DOES NOT KNOW THE NAME OF THE COMPANY. PT HAS NO OUTSIDE SERVICES ASSISTING IN THE HOME. CM DISCUSSED AVAILABILITY OF HOME HEALTH, REHAB SERVICES AND MEDICAL EQUIPMENT. PT DENIES DISCHARGE NEEDS, REPORTS HIS SPOUSE WILL PICK HIM UP FOR DISCHARGE HOME. IMPORTANT MESSAGE FROM MEDICARE PROVIDED AND EXPLAINED. PT HAS CPAP, REMSTAR AUTO M-SERIES, A-FLEX. CM CALLED [facility], , SPOKE TO EZEQUIEL WHO REPORTS THAT TO USE A DIFFERENT COMPANY TO OBTAIN SUPPLIES, PT WILL NEED COPY OF ORIGINAL SLEEP STUDY AND CHART NOTES FROM THE STUDY AND CURRENT DOCTORS CHART NOTES. EZEQUIEL WILL CALL CM BACK IF SHE FINDS OUT ANYTHING DIFFERENT. CM CALLED [employer] [facility] ON MACHINE, NUMBER IS DISCONNECTED. CM SEARCHED COMPANY ON INTERNET, OBTAINED NUMBER OF [phone] WHICH IS ALSO DISCONNECTED. PT PLANS TO DISCHARGE HOME WITH SPOUSE, DENIES NEEDS AT THIS TIME. PT REPORTS CPAP IS WORKING BUT IS 22 YEARS OLD WITH NO CURRENT SUPPLIER FOR NEW SUPPLIES NEEDED. [facility] REPORTS PT NEEDS ORIGINAL SLEEP STUDY WITH CHART NOTES AND CURRENT DOCTOR CHART NOTES REGARDING CPAP NEEDS. CM TO FOLLOW AND ASSIST NEEDED. Bakery Clerk: Aayush Montgomery DCPIA - Discharge Planning Initial Assessment Updated by BETTE: Aayush Montgomery on 02/18/18 4:53 pm * Is the patient Alert and Oriented? Yes * How many steps to enter\exit or inside your home? 13 W/RAIL * PCP DR. DOMINGUEZ * [facility] * Preadmission Environment Home with Family * ADLs Independent * Equipment Cane CPAP Walker Wheelchair * Other Equipment NO MEDICAL EQUIPMENT PROVIDER DOES NOT USE WHEELCHAIR OR WALKER AT THIS TIME * List name and contact numbers for known caregivers / representatives who currently or will assist patient after discharge: ÁLVARO RODRIGUEZ, SPOUSE, * Verbal permission to speak to the caregivers and representatives has been obtained from the patient. Yes * Community resources currently utilized None * Please name any agencies selected above. NONE * Additional services required to return to the preadmission environment? No * Can the patient safely return to the preadmission environment? Yes * Has this patient been hospitalized within the prior 30 days at any hospital? No Coverage Notice Reviewer: [id number] - Aayush Montgomery Notice Issued Date-Time: 02/18/2018 16:25 Notice Type: IM Discharge Notice Notice Delivered To: Patient Relationship to Patient: Medical Editor Name: Delivery Method: HAND - Hand Delivered Rebecca Days: Prior Verbal Notification: Recipient Understood Notice: Yes Recipient Signature: Yes Med Rec Note Co-signed by Attending: Coverage Notice Comment: Last DP export: 02/18/18 3:59 Patient Name: SANTO RODRIGUEZ Page 87812 at 1707 All edits/amendments must be made on the electronic document DICTATION DATE: 02/18/181705 BUILDING CONSTRUCTION SUPERVISOR: PAUL 02/18/181705 RPT#: [id number] DC DATE: STATUS: ADM IN [facility] [address] [place] [address] END OF REPORT
--- NOTE | ~2018-02-15 | CN ---
PATIENT NAME:SANTO LIRIANO MEDICAL RECORD: [id number] : 41 LOCATION:[id number] ADMIT DATE: 02/16/18 ACCOUNT: [id number] CONSULTING PHYSICIAN: JOELLE ORDONEZ MD REFERRING PHYSICIAN: MARLYS LOMBARDO M.D. DATE OF CONSULTATION: 02/15/2018 CONSULT REQUESTING PHYSICIAN: Duy Lombardo MD REASON FOR CONSULTATION: Bilateral pneumonia. HISTORY OF PRESENT ILLNESS: Mr. Liriano is a 72-year-old gentleman who has a history of COPD, coronary artery disease, recent valvular repair. The patient is sick since Thursday. He was coughing. He was not feeling well. He also was running fever. He was also, he says, sick to the stomach. He vomited once. There was no diarrhea. The patient was in physical therapy today and he had earlier CT scan of the chest and this showed bilateral pneumonia with pleural effusion. REVIEW OF SYSTEMS: As in the history of present illness. PAST MEDICAL HISTORY: 1. COPD. 2. Obstructive sleep apnea. 3. History of pneumonia. 4. History of multiple myeloma. 5. History of CA of the right kidney. 6. Anxiety/depression. PAST SURGICAL HISTORY: 1. He has a back surgery. 2. He has a cardiac catheterization and stent placement. 3. Right nephrectomy. 4. CABG. 5. Recent valve repair in November of this year. ALLERGIES: ALLERGIC TO ERYTHROMYCIN. MEDICATIONS: Cinsaytech is reviewed. PERSONAL AND SOCIAL HISTORY: The patient is an ex-smoker. He is a nondrinker. FAMILY HISTORY: Significant for cardiovascular diseases. PHYSICAL EXAMINATION: GENERAL: The patient is now lying comfortable. He is not in acute distress. VITAL SIGNS: The blood pressure is 126/59, pulse is 69, respiration is 20, temperature 97.3, SpO2 97% on nasal cannula oxygen. HEENT: Conjunctivae are pink. Sclerae are not icteric. NECK: Supple, no JVD. CHEST: There are bilateral crackles, wheeze on forceful expiration. HEART: Rhythm regular, normal sound, no murmur. ABDOMEN: Soft, bowel sounds present. No hepatosplenomegaly. RECTAL: Deferred. EXTREMITIES: No cyanosis, no clubbing, no pedal edema. CONSULT REPORT [id number] SANTO LIRIANO SKIN: Warm, normal turgor. CENTRAL NERVOUS SYSTEM: The patient is awake and alert. There are no obvious cranial nerve abnormalities. The gait was not tested. LABORATORY DATA: Pending. IMAGING: CT Scan Of The Chest: There is bilateral infiltrate and a moderate-sized right pleural effusion, small left pleural effusion. There is multilobar pneumonia. IMPRESSION: 1. Bilateral pneumonia, multilobar, most likely community-acquired pneumonia. 2. Acute hypoxic respiratory failure. 3. Acute exacerbation of chronic obstructive pulmonary disease. 4. Bilateral pleural effusion, right more than the left, possible parapneumonic. 5. Status post recent valvular repair. 6. Hypertension. 7. Secondary moderate pulmonary hypertension, most likely secondary to valvular disease. RECOMMENDATIONS: 1. Continue Levaquin. Continue Rocephin. 2. Start methylprednisolone IV. 3. Start Brovana and budesonide nebulizer. 4. Albuterol/ipratropium nebulizer. 4. Follow up labs and chest radiograph. Discussed with the family. Dr. Lombardo, thank you for involving me in the care of Mr. Liriano. TRANSINT:[id number] Voice Confirmation ID: [id number] DOCUMENT ID: [id number] JOELLE ORDONEZ MD at 1234 CC: [id number] DICTATION DATE: 02/15/18 170 IMAGING SYSTEM ADMINISTRATOR: 02/16/18 0006 DIS IN 03/10/18 [id number] [place] [address]
--- NOTE | ~2018-02-15 | EC ---
PATIENT:SANTO RODRIGUEZ DATE OF SERVICE: 02/15/18 SEX: M MEDICAL RECORD: [id number] DATE OF : [birth year] LOCATION:[facility] AGE OF PATIENT: 72 ADMISSION DATE: 02/15/18 REFERRING PHYSICIAN: INTERPRETING PHYSICIAN: TAVON PERAZA MD ECHOCARDIOGRAM REPORT ECHO CHARGES 4 ECHO COMPLETE Date: 02/19/18 CLINICAL DIAGNOSIS: CHF ECHOCARDIOGRAPHIC MEASUREMENTS (adult normal given) AC root (d.<3.7cm) 3.1 cm LV Septum d (<1.2 cm> 1.6 cm Valve Excursion 1.1 cm LV Septum (systole) 1.9 cm Left Atria (s.<4.0cm> 5.4 cm LVPW d(<1.2cm) 1.5 cm RV (d.<2.3cm) 3.4 cm LVPW (sytole) 2.1 cm LV diastole(<5.6CM) 8.1 cm MV E-F(>70mm/sec) cm LV systole 6.1 cm LVOT Diameter 2.3 cm MV exc.(>10mm) cm Est.ejection fraction (50-75%) % DOPPLER: LVIT cm/sec A 104 cm/sec E 180 cm/sec LA cm/sec RVSP 50.2 mmHg LVOT 91.0 cm/sec AOP1/2T 385.0m/s Asc. Ao 316 cm/sec RVOT 58.0 cm/sec RA cm/sec PA 97.0 cm/sec AV Gradient Peak 40.1 mmHg AV Mean 19.0 mmHg AV Area 1.0 cm MV Gradient Peak 16.1 mmHg MV Mean 6.1 mmHg MV Area cm COMMENTS: Traffic Assistant: 1 KAILA WELLS Design Lead: 2 Dr. Lombardo TAPE# PACS Pericardial Effusion N DATE OF SERVICE: FINDINGS: 1. Left ventricle chamber size is dilated. Left ventricular systolic function is moderately reduced, overall ejection fraction 30% to 35%. 2. Left atrium is dilated at 5.4 cm. Right atrium and right ventricle chamber sizes are as well mildly dilated. 3. Valvular structures: Aortic valve demonstrates [id number] calcific aortic stenosis, valve area calculates to 1.0 cm-squared. There is gradient of 40 mm across the valve. The remaining valvular structures have normal structure ECHOCARDIOGRAM REPORT [id number] SARAVIA and motion. 4. Doppler interrogation elsewise reveals moderate aortic insufficiency, severe mitral regurgitation, severe tricuspid regurgitation, no other valvular insufficiency or stenosis. Pulmonary systolic pressure is elevated estimated at 50 mmHg. 5. No evidence of pericardial effusion or left ventricular thrombus. TRANSINT:[id number] Voice Confirmation ID: [id number] DOCUMENT ID: [id number] TAVON PERAZA MD at 1913 CC: [id number] DICTATION DATE: 02/19/18 1056 OUTSIDE SOLAR SALES CONSULTANT: 02/19/18 1112 ADM IN [facility] [address] [place] [id number]
--- NOTE | ~2018-02-15 | MORECARE ---
CASE MANAGEMENT DISCHARGE SUMMARY PATIENT: SANTO RODRIGUEZ UNIT: [id number] ADM DATE: 02/15/18 AGE: 72 : 41 SEX: M ROOM/BED: D.2140 AUTHOR: NAZANIN LR PHYSICIAN: REFERRING PHYSICIAN: MARLYS MCLAUGHLIN M.D. DATE OF SERVICE: 02/18/18 Discharge Plan Patient Name: SANTO RODRIGUEZ Facility: [facility]:[place] : 1945 Planned Disposition: Home Anticipated Discharge Date: 02/20/18 Discharge Date: Expected LOS: 5 Initial Reviewer: [email or web address] Initial Review Date: 02/16/2018 Generated: 02/18/18 5:45 pm Patient Name: SANTO RODRIGUEZ Page [id number] at 1645 All edits/amendments must be made on the electronic document DICTATION DATE: 02/18/181644 LEASING AGENT: PAUL 02/18/181644 RPT#: [id number] DC DATE: STATUS: ADM IN [facility] [address] [place] [address] END OF REPORT
--- NOTE | ~2018-02-15 | MORECARE ---
CASE MANAGEMENT DISCHARGE SUMMARY PATIENT: SANTO RODRIGUEZ [place] UNIT: [id number] ADM DATE: 02/15/18 AGE: 72 : 41 SEX: M ROOM/BED: D.2140 AUTHOR: NAZANIN LR PHYSICIAN: REFERRING PHYSICIAN: MARLYS MCLAUGHLIN M.D. DATE OF SERVICE: 02/18/18 Discharge Plan Patient Name: SANTO RODRIGUEZ Facility: [facility]:[place] : 1945 Planned Disposition: Home Anticipated Discharge Date: 02/20/18 Discharge Date: Expected LOS: 5 Initial Reviewer: [email or web address] Initial Review Date: 02/16/2018 Generated: 02/18/18 5:59 pm DCPIA - Discharge Planning Initial Assessment Updated by [email or web address]: Aayush Montgomery on 02/18/18 4:53 pm * Is the patient Alert and Oriented? Yes * How many steps to enter\exit or inside your home? 13 W/RAIL * PCP DR. DOMINGUEZ * [facility] * Preadmission Environment Home with Family * ADLs Independent * Equipment Cane CPAP Walker Wheelchair * Other Equipment NO MEDICAL EQUIPMENT PROVIDER DOES NOT USE WHEELCHAIR OR WALKER AT THIS TIME * List name and contact numbers for known caregivers / representatives who currently or will assist patient after discharge: ÁLVARO RODRIGUEZ, SPOUSE, * Verbal permission to speak to the caregivers and representatives has been obtained from the patient. Yes * Community resources currently utilized None * Please name any agencies selected above. NONE * Additional services required to return to the preadmission environment? No * Can the patient safely return to the preadmission environment? Yes * Has this patient been hospitalized within the prior 30 days at any hospital? No Last DP export: 02/18/18 3:45 Patient Name: SANTO RODRIGUEZ Page [phone] at 1700 All edits/amendments must be made on the electronic document DICTATION DATE: 02/18/181658 LINING STITCHER: PAUL 02/18/181658 RPT#: [id number] DC DATE: STATUS: ADM IN [facility] [address] [place] [address] END OF REPORT
--- NOTE | ~2018-02-15 | MORECARE ---
CASE MANAGEMENT DISCHARGE SUMMARY PATIENT: SANTO RODRIGUEZ UNIT: [id number] ADM DATE: 02/15/18 AGE: 72 : 43 SEX: M ROOM/BED: D.2304 AUTHOR: NAZANIN LR PHYSICIAN: REFERRING PHYSICIAN: MARLYS MCLAUGHLIN M.D. DATE OF SERVICE: 03/11/18 Discharge Plan Patient Name: SANTO RODRIGUEZ Facility: [facility]:[place] : 1945 Planned Disposition: Home Anticipated Discharge Date: 02/20/18 Discharge Date: 03/10/2018 Expected LOS: 5 Initial Reviewer: [email or web address] Initial Review Date: 02/16/2018 Generated: 03/11/18 7:16 pm Comments DCP- Discharge Planning Updated by [email or web address]: Aayush Montgomery on 02/18/18 5:[address] Patient Name: SANTO RODRIGUEZ Admission Status: Elective Accout number: [id number] Admission Date: 02-15-2018 : 1945 Admission Diagnosis:PNEUMONIA, UNSPECIFIED ORGANISM Attending: MARLYS MCLAUGHLIN Current LOS: 3 Anticipated DC Date: 02-20-2018 Planned Disposition: Home Primary Insurance: [facility] MEDICARE SOLUTIONS Discharge Planning Comments: CM MET WITH PT AND SPOUSE IN ROOM TO DISCUSS DISCHARGE PLANNING AND NEEDS. SANTO RODRIGUEZ provided verbal consent to discuss current and ongoing needs with/in the presence of: SPOUSE, ÁLVARO. PT REPORTS LIVING AT HOME INDEPENDENTLY WITH SPOUSE. PT HAS CANE, CPAP, WALKER AND WHEELCHAIR WITH NO MEDICAL EQUIPMENT PROVIDER PREFERENCE. PT DOES NOT USE THE WALKER AND WHEELCHAIR CURRENTLY; PT HAS HAD CPAP FOR 22 YEARS AND WOULD LIKE TO KNOW HOW TO OBTAIN SUPPLIES FOR IT. PT'S SPOUSE REPORTS HAVING A CLEARING HOUSE CLERK CALLING THE HOME TO ARRANGE THE SUPPLIES IF NEEDED BUT DOES NOT KNOW THE NAME OF THE COMPANY. PT HAS NO OUTSIDE SERVICES ASSISTING IN THE HOME. CM DISCUSSED AVAILABILITY OF HOME HEALTH, REHAB SERVICES AND MEDICAL EQUIPMENT. PT DENIES DISCHARGE NEEDS, REPORTS HIS SPOUSE WILL PICK HIM UP FOR DISCHARGE HOME. IMPORTANT MESSAGE FROM MEDICARE PROVIDED AND EXPLAINED. PT HAS CPAP, REMSTAR AUTO M-SERIES, A-FLEX. CM CALLED [facility], , SPOKE TO EZEQUIEL WHO REPORTS THAT TO USE A DIFFERENT COMPANY TO OBTAIN SUPPLIES, PT WILL NEED COPY OF ORIGINAL SLEEP STUDY AND CHART NOTES FROM THE STUDY AND CURRENT DOCTORS CHART NOTES. EZEQUIEL WILL CALL CM BACK IF SHE FINDS OUT ANYTHING DIFFERENT. CM CALLED [employer] [facility] ON MACHINE, NUMBER IS DISCONNECTED. CM SEARCHED COMPANY ON INTERNET, OBTAINED NUMBER OF [phone] WHICH IS ALSO DISCONNECTED. PT PLANS TO DISCHARGE HOME WITH SPOUSE, DENIES NEEDS AT THIS TIME. PT REPORTS CPAP IS WORKING BUT IS 22 YEARS OLD WITH NO CURRENT SUPPLIER FOR NEW SUPPLIES NEEDED. [facility] REPORTS PT NEEDS ORIGINAL SLEEP STUDY WITH CHART NOTES AND CURRENT DOCTOR CHART NOTES REGARDING CPAP NEEDS. CM TO FOLLOW AND ASSIST NEEDED. Configuration Analyst: Aayush Montgomery DCPIA - Discharge Planning Initial Assessment Updated by [email or web address]: Aayush Montgomery on 02/18/18 4:53 pm * Is the patient Alert and Oriented? Yes * How many steps to enter\exit or inside your home? 13 W/RAIL * PCP DR. DOMINGUEZ * [facility] * Preadmission Environment Home with Family * ADLs Independent * Equipment Cane CPAP Walker Wheelchair * Other Equipment NO MEDICAL EQUIPMENT PROVIDER DOES NOT USE WHEELCHAIR OR WALKER AT THIS TIME * List name and contact numbers for known caregivers / representatives who currently or will assist patient after discharge: ÁLVARO ORDRIGUEZ, SPOUSE, * Verbal permission to speak to the caregivers and representatives has been obtained from the patient. Yes * Community resources currently utilized None * Please name any agencies selected above. NONE * Additional services required to return to the preadmission environment? No * Can the patient safely return to the preadmission environment? Yes * Has this patient been hospitalized within the prior 30 days at any hospital? No Coverage Notice Reviewer: [id number] - Aayush Montgomery Notice Issued Date-Time: 02/18/2018 16:25 Notice Type: IM Discharge Notice Notice Delivered To: Patient Relationship to Patient: Yield Clerk Name: Delivery Method: HAND - Hand Delivered Rebecca Days: Prior Verbal Notification: Recipient Understood Notice: Yes Recipient Signature: Yes Med Rec Note Co-signed by Attending: Coverage Notice Comment: Last DP export: 02/18/18 5:06 Patient Name: SANTO RODRIGUEZ Page [id number] at 1816 All edits/amendments must be made on the electronic document DICTATION DATE: 03/11/181815 LAST CLEANER: PAUL 03/11/181815 RPT#: [id number] DC DATE:03/10/18 STATUS: DIS IN [facility] [address] [place] [address] END OF REPORT
--- NOTE | ~2018-02-15 | OP ---
PATIENT NAME: SANTO RODRIGUEZ MEDICAL RECORD: [id number] :41 LOCATION:[facility] D.2304 ADMISSION DATE:02/15/18 SURGEON: LAMBERT MCKAY MD DATE OF OPERATION: 03/03/2018 PREOPERATIVE DIAGNOSIS: Acute renal failure. POSTOPERATIVE DIAGNOSIS: Acute renal failure. PROCEDURE: Placement of left neck Trialysis catheter. SURGEON: Lambert Mckay MD PERSONNEL SECURITY ASSISTANT: None. BLOOD LOSS: Minimal. ANESTHESIA: Local. COMPLICATIONS: None. The risks, possible complications, and alternatives to the procedure were explained to the patient's family. They elected to proceed. OPERATIVE COURSE: The patient was seen in his bedside. He was positioned in the Trendelenburg position. The left neck was sterilely prepped and draped. A local anesthetic was used to infiltrate the skin and subcutaneous tissues at the base of the left neck. The left internal jugular vein was percutaneously accessed in an antegrade fashion. A guidewire passed easily. A small skin leeanne was accomplished. A vessel dilator was used to dilate the subcutaneous tract. A short Trialysis catheter was inserted to the hub. It was sutured in place times 3. All lumens flushed easily and aspirated dark, nonpulsatile blood. A stat portable chest x-ray is pending. TRANSINT:[id number] Voice Confirmation ID: [id number] DOCUMENT ID: [id number] LAMBERT MCKAY MD at 0039 CC: [id number] DICTATION DATE: 03/03/182244 TELECOMMUNICATIONS ENGINEER: 03/03/189 ADM IN [place] [id number] [place] [address]
[2018-02-15 16:42] LABS: BASOPHILS 0.2 % (0-2); EOSINOPHILS 0.8 % (0-7); HEMATOCRIT 26.6 % (42.0-54.0); HEMOGLOBIN 8.6 g/dL (13.5-17.5); IMMATURE GRANULOCYTES 0.2 % (0-5); LYMPHOCYTES 11.2 % (15-50); MCH 29.5 pg (26.0-34.0); MCHC 32.3 g/dL (31.0-37.0); MCV 91.1 fL (80.0-100.0); MEAN PLATELET VOLUME 11.1 fL (7.4-10.4); MONOCYTES 6.9 % (2-11); NEUTROPHILS 80.7 % (40-80); PLATELET COUNT 177 10x3/uL (130-400); RBC 2.92 10x6/uL (4.20-6.10); RDW 17.9 % (11.5-14.5)
[2018-02-15 17:21] VITALS: BP 126/58; BMI 25.4
[2018-02-15 17:22] LABS: CALC OSMOLALITY 287 mosm/kg (275-300); CALCIUM 8.3 mg/dL (8.5-10.1); CARBON DIOXIDE 20.4 mmol/L (21.0-32.0); CHLORIDE - SERUM 102 mmol/L (98-107); GLUCOSE 111 mg/dL (74-106); POTASSIUM - SERUM 3.1 mmol/L (3.5-5.1); SODIUM 139 mmol/L (136-145); UREA NITROGEN 39 mg/dL (7-18); eGFR NON AFRICAN AMERICAN 78 mL/min (90-120)
[2018-02-15 21:22] VITALS: BP 131/62
[2018-02-16 01:19] VITALS: BP 135/69
[2018-02-16 06:11] VITALS: BP 129/65
[2018-02-16 07:56] VITALS: BP 128/63
[2018-02-16 11:03] VITALS: BP 135/65
[2018-02-16 15:29] VITALS: BP 123/61
[2018-02-16 20:00] VITALS: BP 123/53
[2018-02-17 00:46] VITALS: BP 132/63
[2018-02-17 04:00] VITALS: BP 130/67
[2018-02-17 07:56] VITALS: BP 132/61
[2018-02-17 10:46] VITALS: BP 123/63
[2018-02-17 12:20] VITALS: BMI 25.0
[2018-02-17 14:49] VITALS: BP 138/69
[2018-02-17 20:00] VITALS: BP 142/68
[2018-02-18] VITALS: BP 145/69
[2018-02-18 02:56] LABS: BASOPHILS 0 % (0-2); EOSINOPHILS 0 % (0-7); HEMATOCRIT 25.4 % (42.0-54.0); HEMOGLOBIN 8.2 g/dL (13.5-17.5); IMMATURE GRANULOCYTES 0.7 % (0-5); LYMPHOCYTES 3.3 % (15-50); MCH 29.5 pg (26.0-34.0); MCHC 32.3 g/dL (31.0-37.0); MCV 91.4 fL (80.0-100.0); MEAN PLATELET VOLUME 10.4 fL (7.4-10.4); MONOCYTES 2.3 % (2-11); NEUTROPHILS 93.7 % (40-80); PLATELET COUNT 204 10x3/uL (130-400); RBC 2.78 10x6/uL (4.20-6.10); RDW 18.1 % (11.5-14.5); WBC 15.1 10x3/uL (4.8-10.8)
[2018-02-18 03:21] LABS: ANION GAP 16.8 mmol/L (8-16); BILIRUBIN - TOTAL 0.35 mg/dL (0.2-1.3); CALCIUM 8.8 mg/dL (8.5-10.1); CARBON DIOXIDE 18.4 mmol/L (21.0-32.0); POTASSIUM - SERUM 4.2 mmol/L (3.5-5.1); PROTEIN - SERUM 7.2 g/dL (6.4-8.2)
[2018-02-18 07:27] VITALS: BP 143/69
[2018-02-18 09:06] VITALS: BP 134/68
[2018-02-18 13:29] LABS: BASOPHILS 0 % (0-2); EOSINOPHILS 0 % (0-7); HEMATOCRIT 23.9 % (42.0-54.0); HEMOGLOBIN 7.6 g/dL (13.5-17.5); IMMATURE GRANULOCYTES 0.6 % (0-5); LYMPHOCYTES 4.3 % (15-50); MCHC 31.8 g/dL (31.0-37.0); MCV 91.2 fL (80.0-100.0); MEAN PLATELET VOLUME 10.9 fL (7.4-10.4); MONOCYTES 3.1 % (2-11); PLATELET COUNT 213 10x3/uL (130-400); RBC 2.62 10x6/uL (4.20-6.10); RDW 18.1 % (11.5-14.5); WBC 13.9 10x3/uL (4.8-10.8)
[2018-02-18 14:01] LABS: CKMB 3.4 U/L (0.0-3.6); CREATINE KINASE 87 UL (21-232); PRO BNP 29445 pg/mL (0-125); TROPONIN-I 0.048 ng/mL (0.000-0.060)
[2018-02-18 18:59] VITALS: BP 125/67
[2018-02-18 20:55] VITALS: BP 119/68
[2018-02-19 00:56] VITALS: BP 132/63
[2018-02-19 06:21] VITALS: BP 99/60
[2018-02-19 08:03] VITALS: BP 136/62
[2018-02-19 11:52] VITALS: BP 141/57
[2018-02-19 15:58] VITALS: BP 142/62
[2018-02-19 20:00] VITALS: BP 145/72
[2018-02-20] VITALS: BP 112/59
[2018-02-20 06:04] VITALS: BP 128/53
[2018-02-20 06:29] LABS: BASOPHILS 0.1 % (0-2); EOSINOPHILS 0 % (0-7); HEMATOCRIT 24.9 % (42.0-54.0); HEMOGLOBIN 8.2 g/dL (13.5-17.5); IMMATURE GRANULOCYTES 0.8 % (0-5); MCH 29.2 pg (26.0-34.0); MCHC 32.9 g/dL (31.0-37.0); MEAN PLATELET VOLUME 10.5 fL (7.4-10.4); MONOCYTES 5.3 % (2-11); NEUTROPHILS 87.8 % (40-80); PLATELET COUNT 250 10x3/uL (130-400); RBC 2.81 10x6/uL (4.20-6.10); RDW 18.4 % (11.5-14.5)
[2018-02-20 06:33] LABS: MCV 88.6 fL (80.0-100.0)
[2018-02-20 06:41] LABS: ANION GAP 19.6 mmol/L (8-16); CALCIUM 9.2 mg/dL (8.5-10.1); CARBON DIOXIDE 20.8 mmol/L (21.0-32.0); CREATININE - SERUM 2.2 mg/dL (0.6-1.3); MAGNESIUM - SERUM 2.5 mg/dL (1.8-2.4); POTASSIUM - SERUM 3.4 mmol/L (3.5-5.1)
[2018-02-20 08:52] VITALS: BP 143/68
[2018-02-20 11:26] VITALS: BP 98/62
[2018-02-20 16:02] VITALS: BP 134/64
[2018-02-20 20:12] VITALS: BP 131/63
[2018-02-21 00:20] VITALS: BP 140/78
[2018-02-21 04:49] VITALS: BP 142/66
[2018-02-21 05:28] LABS: HEMATOCRIT 25.1 % (42.0-54.0); HEMOGLOBIN 8.2 g/dL (13.5-17.5); MCHC 32.7 g/dL (31.0-37.0); MCV 88.7 fL (80.0-100.0); MEAN PLATELET VOLUME 10.4 fL (7.4-10.4); PLATELET COUNT 291 10x3/uL (130-400); RBC 2.83 10x6/uL (4.20-6.10); RDW 18.2 % (11.5-14.5); WBC 22.9 10x3/uL (4.8-10.8)
[2018-02-21 05:29] LABS: ANION GAP 20.4 mmol/L (8-16); BASOPHILS 2 % (0-2); CALCIUM 9.1 mg/dL (8.5-10.1); CARBON DIOXIDE 19.7 mmol/L (21.0-32.0); EOSINOPHILS 1 % (0-7); LYMPHOCYTES 9 % (15-50); MAGNESIUM - SERUM 2.4 mg/dL (1.8-2.4); MONOCYTES 4 % (2-11); NEUTROPHILS 79 % (40-80); PLATELET ESTIMATE NORMAL; POTASSIUM - SERUM 3.1 mmol/L (3.5-5.1)
[2018-02-21 08:52] VITALS: BP 136/61
[2018-02-21 11:02] VITALS: BP 131/64
[2018-02-21 15:44] VITALS: BP 131/64
[2018-02-21 21:59] VITALS: BP 125/62
[2018-02-22 02:24] VITALS: BP 131/65
[2018-02-22 05:45] VITALS: BP 135/62
[2018-02-22 06:04] LABS: BASOPHILS 0.1 % (0-2); EOSINOPHILS 0 % (0-7); HEMATOCRIT 26.4 % (42.0-54.0); HEMOGLOBIN 8.5 g/dL (13.5-17.5); IMMATURE GRANULOCYTES 1.1 % (0-5); LYMPHOCYTES 4.8 % (15-50); MCH 28.8 pg (26.0-34.0); MCHC 32.2 g/dL (31.0-37.0); MCV 89.5 fL (80.0-100.0); MEAN PLATELET VOLUME 10.3 fL (7.4-10.4); MONOCYTES 3.9 % (2-11); NEUTROPHILS 90.1 % (40-80); PLATELET COUNT 346 10x3/uL (130-400); RBC 2.95 10x6/uL (4.20-6.10); RDW 18.8 % (11.5-14.5); WBC 26.2 10x3/uL (4.8-10.8)
[2018-02-22 06:19] LABS: ANION GAP 19.6 mmol/L (8-16); CALCIUM 9.1 mg/dL (8.5-10.1); CARBON DIOXIDE 20.2 mmol/L (21.0-32.0); CREATININE - SERUM 1.9 mg/dL (0.6-1.3); MAGNESIUM - SERUM 2.4 mg/dL (1.8-2.4); POTASSIUM - SERUM 3.8 mmol/L (3.5-5.1)
[2018-02-22 09:05] VITALS: BP 122/55
[2018-02-22 11:08] VITALS: BP 120/56
[2018-02-22 20:00] VITALS: BP 122/60
[2018-02-23] VITALS (12 sets, daily range): BP systolic 120–156; BP diastolic 57–75
[2018-02-23 06:07] LABS: BASOPHILS 0 % (0-2); EOSINOPHILS 0 % (0-7); HEMATOCRIT 25.5 % (42.0-54.0); HEMOGLOBIN 8.2 g/dL (13.5-17.5); IMMATURE GRANULOCYTES 0.9 % (0-5); LYMPHOCYTES 4.3 % (15-50); MCH 28.7 pg (26.0-34.0); MCHC 32.2 g/dL (31.0-37.0); MCV 89.2 fL (80.0-100.0); MEAN PLATELET VOLUME 10.2 fL (7.4-10.4); MONOCYTES 3.3 % (2-11); NEUTROPHILS 91.5 % (40-80); PLATELET COUNT 315 10x3/uL (130-400); RBC 2.86 10x6/uL (4.20-6.10); RDW 18.9 % (11.5-14.5); WBC 23.7 10x3/uL (4.8-10.8)
[2018-02-23 06:19] LABS: ANION GAP 16.6 mmol/L (8-16); CALCIUM 9.1 mg/dL (8.5-10.1); CARBON DIOXIDE 21.3 mmol/L (21.0-32.0); CREATININE - SERUM 1.9 mg/dL (0.6-1.3); MAGNESIUM - SERUM 2.5 mg/dL (1.8-2.4); POTASSIUM - SERUM 3.9 mmol/L (3.5-5.1); VANCOMYCIN - TROUGH 27.8 ug/mL (10.0-20.0)
[2018-02-24] VITALS (24 sets, daily range): BP systolic 108–149; BP diastolic 58–83; Ht 172.7 cm; Wt 90.0 kg
[2018-02-24 04:33] LABS: BASOPHILS 0.1 % (0-2); EOSINOPHILS 0 % (0-7); HEMATOCRIT 23.9 % (42.0-54.0); HEMOGLOBIN 7.6 g/dL (13.5-17.5); LYMPHOCYTES 3.1 % (15-50); MCH 28.1 pg (26.0-34.0); MCHC 31.8 g/dL (31.0-37.0); MCV 88.5 fL (80.0-100.0); MEAN PLATELET VOLUME 10.2 fL (7.4-10.4); MONOCYTES 1.7 % (2-11); NEUTROPHILS 94.1 % (40-80); PLATELET COUNT 303 10x3/uL (130-400); RDW 18.9 % (11.5-14.5)
[2018-02-24 04:42] LABS: ANION GAP 18.9 mmol/L (8-16); MAGNESIUM - SERUM 2.6 mg/dL (1.8-2.4); POTASSIUM - SERUM 3.9 mmol/L (3.5-5.1)
[2018-02-24 04:48] LABS: WBC 17.5 10x3/uL (4.8-10.8)
[2018-02-24 07:28] LABS: CKMB 0.9 U/L (0.0-3.6); CREATINE KINASE 42 UL (21-232)
[2018-02-24 07:29] LABS: TROPONIN-I < 0.017 ng/mL (0.000-0.060)
[2018-02-25] VITALS (23 sets, daily range): BP systolic 122–153; BP diastolic 64–77
[2018-02-25 05:57] LABS: BASOPHILS 0 % (0-2); EOSINOPHILS 0 % (0-7); HEMATOCRIT 26.5 % (42.0-54.0); HEMOGLOBIN 8.6 g/dL (13.5-17.5); IMMATURE GRANULOCYTES 0.9 % (0-5); LYMPHOCYTES 1.9 % (15-50); MCH 27.9 pg (26.0-34.0); MCHC 32.5 g/dL (31.0-37.0); MEAN PLATELET VOLUME 10.4 fL (7.4-10.4); MONOCYTES 1.7 % (2-11); NEUTROPHILS 95.5 % (40-80); PLATELET COUNT 227 10x3/uL (130-400); RBC 3.08 10x6/uL (4.20-6.10); RDW 20.8 % (11.5-14.5); WBC 20.7 10x3/uL (4.8-10.8)
[2018-02-25 06:16] LABS: APTT 26.8 SECONDS (22.8-39.4); INR 1.51 (0.85-1.17); PROTIME 17.7 SECONDS (11.6-15.0)
[2018-02-25 06:41] LABS: ALBUMIN 2.3 g/dL (3.4-5.0); ANION GAP 17.2 mmol/L (8-16); BILIRUBIN - TOTAL 0.45 mg/dL (0.2-1.3); CALCIUM 8.3 mg/dL (8.5-10.1); CARBON DIOXIDE 21.5 mmol/L (21.0-32.0); CREATININE - SERUM 2.1 mg/dL (0.6-1.3); MAGNESIUM - SERUM 2.9 mg/dL (1.8-2.4); PHOSPHOROUS 5.2 mg/dL (2.5-4.9); POTASSIUM - SERUM 3.7 mmol/L (3.5-5.1); PROTEIN - SERUM 5.5 g/dL (6.4-8.2)
[2018-02-25 16:13] LABS: ACID FAST SMEAR Negative (()); AFB SPECIMEN PROCESSING Concentration (())
[2018-02-26] VITALS (20 sets, daily range): BP systolic 122–154; BP diastolic 56–89
[2018-02-26 06:27] LABS: HEMATOCRIT 27.1 % (42.0-54.0); HEMOGLOBIN 8.8 g/dL (13.5-17.5); LYMPHOCYTES 1.6 % (15-50); MCH 28.6 pg (26.0-34.0); MCHC 32.5 g/dL (31.0-37.0); MEAN PLATELET VOLUME 10.1 fL (7.4-10.4); NEUTROPHILS 95.9 % (40-80); PLATELET COUNT 214 10x3/uL (130-400); RBC 3.08 10x6/uL (4.20-6.10); RDW 20.2 % (11.5-14.5); WBC 29.4 10x3/uL (4.8-10.8)
[2018-02-26 06:34] LABS: ALBUMIN 2.2 g/dL (3.4-5.0); ANION GAP 15.1 mmol/L (8-16); BILIRUBIN - TOTAL 0.58 mg/dL (0.2-1.3); CALCIUM 8.3 mg/dL (8.5-10.1); CARBON DIOXIDE 23.5 mmol/L (21.0-32.0); CREATININE - SERUM 1.9 mg/dL (0.6-1.3); POTASSIUM - SERUM 3.6 mmol/L (3.5-5.1); PROTEIN - SERUM 6.2 g/dL (6.4-8.2)
[2018-02-26 13:50] LABS: APPEARANCE CLEAR (CLEAR); BILIRUBIN NEGATIVE (NEGATIVE); COLOR YELLOW (YELLOW); GLUCOSE NEGATIVE (NEGATIVE); KETONE NEGATIVE (NEGATIVE); NITRITE NEGATIVE (NEGATIVE); PROTEIN NEGATIVE (NEGATIVE); SPECIFIC GRAVITY 1.015 (1.005-1.020); UROBILINOGEN NORMAL (NORMAL)
[2018-02-26 16:15] LABS: FUNGUS STAIN Final report (())
[2018-02-27] VITALS (24 sets, daily range): BP systolic 99–142; BP diastolic 49–80
[2018-02-27 06:15] LABS: BASOPHILS 0 % (0-2); EOSINOPHILS 0 % (0-7); HEMOGLOBIN 7.8 g/dL (13.5-17.5); IMMATURE GRANULOCYTES 1.1 % (0-5); LYMPHOCYTES 2.4 % (15-50); MCH 27.8 pg (26.0-34.0); MCHC 31.2 g/dL (31.0-37.0); MEAN PLATELET VOLUME 10.7 fL (7.4-10.4); MONOCYTES 2.4 % (2-11); NEUTROPHILS 94.1 % (40-80); PLATELET COUNT 263 10x3/uL (130-400); RBC 2.81 10x6/uL (4.20-6.10); RDW 21.1 % (11.5-14.5)
[2018-02-27 06:37] LABS: CALCIUM 8.8 mg/dL (8.5-10.1); CARBON DIOXIDE 22.5 mmol/L (21.0-32.0); CREATININE - SERUM 2.2 mg/dL (0.6-1.3)
[2018-02-27 06:38] LABS: POTASSIUM - SERUM 4.5 mmol/L (3.5-5.1)
[2018-02-28] VITALS (20 sets, daily range): BP systolic 98–131; BP diastolic 50–66
[2018-02-28 05:50] LABS: BASOPHILS 0 % (0-2); EOSINOPHILS 0 % (0-7); HEMATOCRIT 24.1 % (42.0-54.0); HEMOGLOBIN 7.6 g/dL (13.5-17.5); IMMATURE GRANULOCYTES 0.8 % (0-5); LYMPHOCYTES 1.7 % (15-50); MCH 28.1 pg (26.0-34.0); MCHC 31.5 g/dL (31.0-37.0); MCV 89.3 fL (80.0-100.0); MEAN PLATELET VOLUME 10.2 fL (7.4-10.4); MONOCYTES 1.6 % (2-11); NEUTROPHILS 95.9 % (40-80); PLATELET COUNT 187 10x3/uL (130-400); RDW 21.2 % (11.5-14.5); WBC 26.2 10x3/uL (4.8-10.8)
[2018-02-28 06:05] LABS: ALBUMIN 1.8 g/dL (3.4-5.0); ANION GAP 17.8 mmol/L (8-16); BILIRUBIN - TOTAL 0.72 mg/dL (0.2-1.3); CALCIUM 7.1 mg/dL (8.5-10.1); CREATININE - SERUM 2.7 mg/dL (0.6-1.3); PROTEIN - SERUM 5.7 g/dL (6.4-8.2)
[2018-02-28 06:07] LABS: POTASSIUM - SERUM 3.8 mmol/L (3.5-5.1)
[2018-03-01] VITALS (24 sets, daily range): BP systolic 105–132; BP diastolic 53–69
[2018-03-01 06:59] LABS: ALBUMIN 1.7 g/dL (3.4-5.0); ALKALINE PHOSPHATASE 73 U/L (46-116); BILIRUBIN - TOTAL 0.73 mg/dL (0.2-1.3); CARBON DIOXIDE 22.1 mmol/L (21.0-32.0); CHLORIDE - SERUM 114 mmol/L (98-107); CREATINE KINASE 528 UL (21-232); CREATININE - SERUM 2.7 mg/dL (0.6-1.3); PHOSPHOROUS 5.1 mg/dL (2.5-4.9); POTASSIUM - SERUM 3.4 mmol/L (3.5-5.1); PROTEIN - SERUM 5.4 g/dL (6.4-8.2); SODIUM 150 mmol/L (136-145); UREA NITROGEN 110 mg/dL (7-18); eGFR NON AFRICAN AMERICAN 25 mL/min (90-120)
[2018-03-01 07:02] LABS: CALC OSMOLALITY 344 mosm/kg (275-300); GLUCOSE 309 mg/dL (74-106)
[2018-03-01 07:03] LABS: ALT (SGPT) 127 U/L (10-68)
[2018-03-01 07:05] LABS: CALCIUM 6.9 mg/dL (8.5-10.1); MAGNESIUM - SERUM 3.5 mg/dL (1.8-2.4)
[2018-03-01 07:06] LABS: CKMB 1.6 U/L (0.0-3.6)
[2018-03-01 07:33] LABS: BASOPHILS 0 % (0-2); EOSINOPHILS 0 % (0-7); HEMATOCRIT 23.8 % (42.0-54.0); HEMOGLOBIN 7.5 g/dL (13.5-17.5); IMMATURE GRANULOCYTES 1.1 % (0-5); LYMPHOCYTES 1.7 % (15-50); MCH 27.7 pg (26.0-34.0); MCHC 31.5 g/dL (31.0-37.0); MCV 87.8 fL (80.0-100.0); MEAN PLATELET VOLUME 10.6 fL (7.4-10.4); MONOCYTES 1.8 % (2-11); NEUTROPHILS 95.4 % (40-80); PLATELET COUNT 189 10x3/uL (130-400); RBC 2.71 10x6/uL (4.20-6.10); RDW 20.9 % (11.5-14.5); WBC 27.9 10x3/uL (4.8-10.8)
[2018-03-01 12:11] LABS: ANTI-GLOMERULAR BASMENT MEMBRN 3 units (0-20)
[2018-03-01 14:20] LABS: ANA REFLEX - DIRECT Negative (Negative)
[2018-03-01 16:13] LABS: ANCA - ANTIMYELOPEROXIDASE <9.0 U/mL (0.0-9.0); ANCA - ANTIPROTEINASE 3 <3.5 U/mL (0.0-3.5); ANCA - ATYPICAL <1:20 titer (Neg:<1:20); ANCA - CYTOPLASMIC <1:20 titer (Neg:<1:20); ANCA - PERINUCLEAR <1:20 titer (Neg:<1:20)
[2018-03-01 18:25] LABS: CALCIUM 7.3 mg/dL (8.5-10.1); CARBON DIOXIDE 22.6 mmol/L (21.0-32.0); CREATININE - SERUM 2.5 mg/dL (0.6-1.3); POTASSIUM - SERUM 3.6 mmol/L (3.5-5.1)
[2018-03-02] VITALS (24 sets, daily range): BP systolic 84–134; BP diastolic 44–71
[2018-03-02 05:33] LABS: POTASSIUM - SERUM 3.6 mmol/L (3.5-5.1)
[2018-03-02 05:35] LABS: APTT 30.2 SECONDS (22.8-39.4); INR 1.59 (0.85-1.17); PROTIME 18.5 SECONDS (11.6-15.0)
[2018-03-02 06:00] LABS: ALBUMIN 1.9 g/dL (3.4-5.0); ANION GAP 20.7 mmol/L (8-16); BILIRUBIN - TOTAL 0.78 mg/dL (0.2-1.3); CALCIUM 7.2 mg/dL (8.5-10.1); CARBON DIOXIDE 18.9 mmol/L (21.0-32.0); CREATININE - SERUM 2.5 mg/dL (0.6-1.3); PHOSPHOROUS 4.6 mg/dL (2.5-4.9); PROTEIN - SERUM 4.8 g/dL (6.4-8.2)
[2018-03-02 06:44] LABS: BASOPHILS 0.1 % (0-2); EOSINOPHILS 0 % (0-7); HEMATOCRIT 23.5 % (42.0-54.0); IMMATURE GRANULOCYTES 1.2 % (0-5); MCH 27.9 pg (26.0-34.0); MCHC 31.9 g/dL (31.0-37.0); MCV 87.4 fL (80.0-100.0); MEAN PLATELET VOLUME 11.5 fL (7.4-10.4); MONOCYTES 1.7 % (2-11); PLATELET COUNT 195 10x3/uL (130-400); RBC 2.69 10x6/uL (4.20-6.10); RDW 20.7 % (11.5-14.5); WBC 22.1 10x3/uL (4.8-10.8)
[2018-03-02 06:45] LABS: HEMOGLOBIN 7.5 g/dL (13.5-17.5)
[2018-03-02 07:02] LABS: MAGNESIUM - SERUM 3.6 mg/dL (1.8-2.4)
[2018-03-02 19:34] LABS: ANION GAP 17.8 mmol/L (8-16); CALCIUM 7.3 mg/dL (8.5-10.1); CARBON DIOXIDE 19.9 mmol/L (21.0-32.0); CREATININE - SERUM 2.6 mg/dL (0.6-1.3); POTASSIUM - SERUM 3.7 mmol/L (3.5-5.1)
[2018-03-02 23:42] LABS: CREATININE - URINE 54.7 mg/dL (30-125); PRO/CRE RATIO URINE 1.7 mg/g; PROTEIN - URINE 90.3 mg/dL (0.0-11.9)
[2018-03-03] VITALS (22 sets, daily range): BP systolic 83–129; BP diastolic 44–850
[2018-03-03 05:35] LABS: BASOPHILS 0 % (0-2); EOSINOPHILS 0 % (0-7); HEMATOCRIT 23.6 % (42.0-54.0); HEMOGLOBIN 7.5 g/dL (13.5-17.5); LYMPHOCYTES 2.3 % (15-50); MCH 27.9 pg (26.0-34.0); MCHC 31.8 g/dL (31.0-37.0); MCV 87.7 fL (80.0-100.0); MEAN PLATELET VOLUME 11.3 fL (7.4-10.4); MONOCYTES 1.2 % (2-11); NEUTROPHILS 95.5 % (40-80); PLATELET COUNT 163 10x3/uL (130-400); RBC 2.69 10x6/uL (4.20-6.10); RDW 19.6 % (11.5-14.5); WBC 22.6 10x3/uL (4.8-10.8)
[2018-03-03 06:01] LABS: ALBUMIN 1.8 g/dL (3.4-5.0); ANION GAP 16.9 mmol/L (8-16); BILIRUBIN - TOTAL 0.72 mg/dL (0.2-1.3); CALCIUM 7.7 mg/dL (8.5-10.1); CARBON DIOXIDE 19.8 mmol/L (21.0-32.0); CREATININE - SERUM 2.6 mg/dL (0.6-1.3); POTASSIUM - SERUM 3.7 mmol/L (3.5-5.1); PROTEIN - SERUM 5.1 g/dL (6.4-8.2)
[2018-03-03 06:16] LABS: MAGNESIUM - SERUM 3.6 mg/dL (1.8-2.4)
[2018-03-04] VITALS (24 sets, daily range): BP systolic 76–138; BP diastolic 44–68
[2018-03-04 05:45] LABS: ALBUMIN 1.7 g/dL (3.4-5.0); BILIRUBIN - TOTAL 0.92 mg/dL (0.2-1.3); CARBON DIOXIDE 19.1 mmol/L (21.0-32.0); CREATININE - SERUM 2.6 mg/dL (0.6-1.3); MAGNESIUM - SERUM 3.4 mg/dL (1.8-2.4); POTASSIUM - SERUM 4.1 mmol/L (3.5-5.1); PROTEIN - SERUM 4.9 g/dL (6.4-8.2)
[2018-03-04 05:47] LABS: BASOPHILS 0 % (0-2); EOSINOPHILS 0 % (0-7); HEMATOCRIT 26.1 % (42.0-54.0); HEMOGLOBIN 8.5 g/dL (13.5-17.5); IMMATURE GRANULOCYTES 1.1 % (0-5); LYMPHOCYTES 2.4 % (15-50); MCH 28.1 pg (26.0-34.0); MCHC 32.6 g/dL (31.0-37.0); MCV 86.1 fL (80.0-100.0); MONOCYTES 0.5 % (2-11); PLATELET COUNT 143 10x3/uL (130-400); RBC 3.03 10x6/uL (4.20-6.10); RDW 18.5 % (11.5-14.5)
[2018-03-05] VITALS (24 sets, daily range): BP systolic 81–127; BP diastolic 44–73
[2018-03-05 04:34] LABS: BASOPHILS 0 % (0-2); EOSINOPHILS 0 % (0-7); HEMATOCRIT 23.2 % (42.0-54.0); HEMOGLOBIN 7.8 g/dL (13.5-17.5); IMMATURE GRANULOCYTES 0.8 % (0-5); LYMPHOCYTES 3.3 % (15-50); MCH 28.4 pg (26.0-34.0); MCHC 33.6 g/dL (31.0-37.0); MCV 84.4 fL (80.0-100.0); MEAN PLATELET VOLUME 11.4 fL (7.4-10.4); MONOCYTES 0.8 % (2-11); NEUTROPHILS 95.1 % (40-80); PLATELET COUNT 146 10x3/uL (130-400); RBC 2.75 10x6/uL (4.20-6.10); RDW 18.6 % (11.5-14.5)
[2018-03-05 04:49] LABS: ALBUMIN 1.6 g/dL (3.4-5.0); ANION GAP 14.3 mmol/L (8-16); BILIRUBIN - TOTAL 0.84 mg/dL (0.2-1.3); CARBON DIOXIDE 23.2 mmol/L (21.0-32.0); MAGNESIUM - SERUM 2.8 mg/dL (1.8-2.4); POTASSIUM - SERUM 3.5 mmol/L (3.5-5.1); PROTEIN - SERUM 4.5 g/dL (6.4-8.2)
[2018-03-06] VITALS (24 sets, daily range): BP systolic 87–147; BP diastolic 45–88
[2018-03-06 04:59] LABS: BASOPHILS 0 % (0-2); EOSINOPHILS 0 % (0-7); HEMATOCRIT 22.4 % (42.0-54.0); HEMOGLOBIN 7.6 g/dL (13.5-17.5); IMMATURE GRANULOCYTES 0.6 % (0-5); LYMPHOCYTES 1.8 % (15-50); MCH 28.5 pg (26.0-34.0); MCHC 33.9 g/dL (31.0-37.0); MCV 83.9 fL (80.0-100.0); MONOCYTES 1.3 % (2-11); NEUTROPHILS 96.3 % (40-80); PLATELET COUNT 132 10x3/uL (130-400); RBC 2.67 10x6/uL (4.20-6.10); RDW 17.7 % (11.5-14.5)
[2018-03-06 05:11] LABS: ALBUMIN 1.5 g/dL (3.4-5.0); BILIRUBIN - TOTAL 0.72 mg/dL (0.2-1.3); CARBON DIOXIDE 23.1 mmol/L (21.0-32.0); CREATININE - SERUM 1.7 mg/dL (0.6-1.3); MAGNESIUM - SERUM 2.4 mg/dL (1.8-2.4); PROTEIN - SERUM 4.6 g/dL (6.4-8.2)
[2018-03-06 05:13] LABS: ANION GAP 14.1 mmol/L (8-16); POTASSIUM - SERUM 4.2 mmol/L (3.5-5.1)
[2018-03-07] VITALS (24 sets, daily range): BP systolic 88–123; BP diastolic 49–71
[2018-03-07 05:36] LABS: BASOPHILS 0.1 % (0-2); EOSINOPHILS 0 % (0-7); HEMATOCRIT 24.8 % (42.0-54.0); HEMOGLOBIN 8.2 g/dL (13.5-17.5); IMMATURE GRANULOCYTES 0.7 % (0-5); MCH 28.8 pg (26.0-34.0); MCHC 33.1 g/dL (31.0-37.0); MEAN PLATELET VOLUME 12.1 fL (7.4-10.4); NEUTROPHILS 93.2 % (40-80); PLATELET COUNT 121 10x3/uL (130-400); RBC 2.85 10x6/uL (4.20-6.10); WBC 15.7 10x3/uL (4.8-10.8)
[2018-03-07 05:51] LABS: ALBUMIN 1.4 g/dL (3.4-5.0); ANION GAP 18.1 mmol/L (8-16); BILIRUBIN - TOTAL 0.85 mg/dL (0.2-1.3); CALCIUM 7.8 mg/dL (8.5-10.1); CARBON DIOXIDE 19.7 mmol/L (21.0-32.0); CREATININE - SERUM 2.7 mg/dL (0.6-1.3); MAGNESIUM - SERUM 2.5 mg/dL (1.8-2.4); POTASSIUM - SERUM 4.8 mmol/L (3.5-5.1); PROTEIN - SERUM 4.5 g/dL (6.4-8.2)
[2018-03-08] VITALS (24 sets, daily range): BP systolic 85–133; BP diastolic 52–78
[2018-03-08 06:33] LABS: ALKALINE PHOSPHATASE 77 U/L (46-116); BILIRUBIN - TOTAL 0.64 mg/dL (0.2-1.3); CARBON DIOXIDE 19.1 mmol/L (21.0-32.0); CHLORIDE - SERUM 99 mmol/L (98-107); MAGNESIUM - SERUM 2.4 mg/dL (1.8-2.4); PHOSPHOROUS 8.9 mg/dL (2.5-4.9); SODIUM 132 mmol/L (136-145); UREA NITROGEN 95 mg/dL (7-18)
[2018-03-08 06:34] LABS: ALBUMIN 0.9 g/dL (3.4-5.0); ALT (SGPT) 22 U/L (10-68); CALC OSMOLALITY 292 mosm/kg (275-300); CREATININE - SERUM 0.1 mg/dL (0.6-1.3); GLUCOSE 76 mg/dL (74-106); POTASSIUM - SERUM 5.8 mmol/L (3.5-5.1); eGFR NON AFRICAN AMERICAN > 90 mL/min (90-120)
[2018-03-08 06:36] LABS: CALCIUM 3.7 mg/dL (8.5-10.1)
[2018-03-08 14:50] LABS: ANION GAP 16.2 mmol/L (8-16); CREATININE - SERUM 2.4 mg/dL (0.6-1.3); POTASSIUM - SERUM 4.2 mmol/L (3.5-5.1)
[2018-03-09] VITALS (24 sets, daily range): BP systolic 92–139; BP diastolic 50–79
[2018-03-09 05:22] LABS: APTT 29.4 SECONDS (22.8-39.4); INR 1.64 (0.85-1.17); PROTIME 18.9 SECONDS (11.6-15.0)
[2018-03-09 05:33] LABS: ALBUMIN 1.8 g/dL (3.4-5.0); ANION GAP 19.9 mmol/L (8-16); BILIRUBIN - TOTAL 0.64 mg/dL (0.2-1.3); CALCIUM 8.4 mg/dL (8.5-10.1); CARBON DIOXIDE 19.6 mmol/L (21.0-32.0); CREATININE - SERUM 2.9 mg/dL (0.6-1.3); MAGNESIUM - SERUM 2.3 mg/dL (1.8-2.4); PHOSPHOROUS 6.1 mg/dL (2.5-4.9); POTASSIUM - SERUM 4.5 mmol/L (3.5-5.1); PROTEIN - SERUM 4.9 g/dL (6.4-8.2); THYROID STIMULATING HORMONE 0.21 uIU/mL (0.36-3.74)
[2018-03-09 05:43] LABS: BASOPHILS 0 % (0-2); EOSINOPHILS 0 % (0-7); IMMATURE GRANULOCYTES 0.6 % (0-5); LYMPHOCYTES 1.6 % (15-50); MCH 28.1 pg (26.0-34.0); MCHC 33.3 g/dL (31.0-37.0); MEAN PLATELET VOLUME 12.4 fL (7.4-10.4); MONOCYTES 1.6 % (2-11); NEUTROPHILS 96.2 % (40-80); PLATELET COUNT 125 10x3/uL (130-400); RBC 2.28 10x6/uL (4.20-6.10); RDW 16.9 % (11.5-14.5)
[2018-03-09 05:56] LABS: WBC 10.9 10x3/uL (4.8-10.8)
[2018-03-09 05:57] LABS: HEMATOCRIT 19.2 % (42.0-54.0); HEMOGLOBIN 6.4 g/dL (13.5-17.5); MCV 84.2 fL (80.0-100.0)
[2018-03-09 20:14] LABS: BASOPHILS 0 % (0-2); EOSINOPHILS 0.2 % (0-7); HEMATOCRIT 22.7 % (42.0-54.0); IMMATURE GRANULOCYTES 0.8 % (0-5); LYMPHOCYTES 5.7 % (15-50); MCH 28.6 pg (26.0-34.0); MCHC 33.9 g/dL (31.0-37.0); MCV 84.4 fL (80.0-100.0); MEAN PLATELET VOLUME 12.3 fL (7.4-10.4); MONOCYTES 2.9 % (2-11); NEUTROPHILS 90.4 % (40-80); RBC 2.69 10x6/uL (4.20-6.10); RDW 15.7 % (11.5-14.5)
[2018-03-09 20:16] LABS: HEMOGLOBIN 7.7 g/dL (13.5-17.5); PLATELET COUNT 98 10x3/uL (130-400); WBC 6.6 10x3/uL (4.8-10.8)
[2018-03-10] VITALS (21 sets, daily range): BP systolic 50–130; BP diastolic 32–67
[2018-03-10 01:08] LABS: HEMATOCRIT 22.5 % (42.0-54.0); HEMOGLOBIN 7.6 g/dL (13.5-17.5)
[2018-03-10 05:27] LABS: ALBUMIN 1.7 g/dL (3.4-5.0); ANION GAP 13.4 mmol/L (8-16); BILIRUBIN - TOTAL 0.67 mg/dL (0.2-1.3); CALCIUM 7.5 mg/dL (8.5-10.1); CREATININE - SERUM 2.5 mg/dL (0.6-1.3); PHOSPHOROUS 5.7 mg/dL (2.5-4.9); POTASSIUM - SERUM 4.1 mmol/L (3.5-5.1); PROTEIN - SERUM 4.2 g/dL (6.4-8.2)
[2018-03-10 05:30] LABS: CARBON DIOXIDE 26.7 mmol/L (21.0-32.0)
[2018-03-17 15:25] LABS: FUNGUS CULTURE RESULT 1 Penicillium species (()); FUNGUS MYCOLOGY CULTURE Final report (())
== END 2018-03-10 19:35 | DRG 207 ==
LOC: D.CT 12:33 → D.M2 12:33 → D.CT 15:00 → D.M2 15:01 → D.ICU 15:01 → OBSVTIME 15:01 → D.M2 15:01 → D.ICU 02-23 17:21 → D.M2 02-23 17:21 → D.ICU 02-23 17:21
PROVIDERS: Family Medicine; Internal Medicine Cardiovascular Disease; Internal Medicine Interventional Cardiology; Internal Medicine Nephrology; Internal Medicine Pulmonary Disease
PROC: 5A1955Z Respiratory Ventilation, Greater than 96 Consecutive Hours (ICD-10-PCS; principal; 2018-02-24)
PROC: 0BH17EZ Insertion of Endotracheal Airway into Trachea, Via Natural or Artificial Opening (ICD-10-PCS; 2018-02-24)
PROC: 02HV33Z Insertion of Infusion Device into Superior Vena Cava, Percutaneous Approach (ICD-10-PCS; 2018-02-24)
PROC: B548ZZA Ultrasonography of Superior Vena Cava, Guidance (ICD-10-PCS; 2018-02-24)
PROC: 0B998ZZ Drainage of Lingula Bronchus, Via Natural or Artificial Opening Endoscopic (ICD-10-PCS; 2018-02-24)
PROC: 0B9B8ZZ Drainage of Left Lower Lobe Bronchus, Via Natural or Artificial Opening Endoscopic (ICD-10-PCS; 2018-02-24)
PROC: 0B958ZZ Drainage of Right Middle Lobe Bronchus, Via Natural or Artificial Opening Endoscopic (ICD-10-PCS; 2018-02-24)
PROC: 05HN33Z Insertion of Infusion Device into Left Internal Jugular Vein, Percutaneous Approach (ICD-10-PCS; 2018-03-03)
DX: J15.212 Pneumonia due to Methicillin resistant Staphylococcus aureus (principal); J96.01 Acute respiratory failure with hypoxia; G93.41 Metabolic encephalopathy; I50.23 Acute on chronic systolic (congestive) heart failure; J44.0 Chronic obstructive pulmonary disease with (acute) lower respiratory infection; J44.1 Chronic obstructive pulmonary disease with (acute) exacerbation; J90 Pleural effusion, not elsewhere classified; I13.0 Hypertensive heart and chronic kidney disease with heart failure and stage 1 through stage 4 chronic kidney disease, or unspecified chronic kidney disease; N17.9 Acute kidney failure, unspecified; R04.89 Hemorrhage from other sites in respiratory passages; E87.0 Hyperosmolality and hypernatremia; E87.2 Acidosis; I27.20 Pulmonary hypertension, unspecified; I25.10 Atherosclerotic heart disease of native coronary artery without angina pectoris; G47.33 Obstructive sleep apnea (adult) (pediatric); F41.9 Anxiety disorder, unspecified; F32.9 Major depressive disorder, single episode, unspecified; N18.9 Chronic kidney disease, unspecified; R19.7 Diarrhea, unspecified; T46.2X5A Adverse effect of other antidysrhythmic drugs, initial encounter; D64.9 Anemia, unspecified; I08.3 Combined rheumatic disorders of mitral, aortic and tricuspid valves; Z95.1 Presence of aortocoronary bypass graft; Z95.5 Presence of coronary angioplasty implant and graft; Z95.0 Presence of cardiac pacemaker; Z85.79 Personal history of other malignant neoplasms of lymphoid, hematopoietic and related tissues; Z87.891 Personal history of nicotine dependence; Z85.528 Personal history of other malignant neoplasm of kidney